=== PATIENT | female | born 1935 | race American Indian/Alaskan Native ===

== ENCOUNTER 2016-08-12 08:25 | Inpatient (IN) | payer OTHER ==
--- NOTE | 2016-08-12 09:05 | PDOC ---
History of Present Illness - General Chief Complaint: Pain Stated Complaint: WEAKNESS Time Seen by Provider: 08/12/16 08:30 History Source: Patient Exam Limitations: No Limitations - History of Present Illness Initial Comments: 08/12/16 09:05 80-year-old female presents to the ED with complaints of right shoulder pain, intermittent pelvic pain, intermittent femur pain for the past few weeks. Patient states is under the care of Dr. Sampson for breast cancer with bone mets and has a follow-up appointment this week with him secondary to the above. Patient states had scans and x-rays done on July 30 but did not get her results as of yet. patient denies fever, chills, swelling, redness, rash, discomfort with movement, or difficulty breathing. Pt does state generalized weakness greater in bilateral legs. Patient states pain is worsened with ambulation or when she applies pressure to the affected areas. Timing/Duration: intermittent Severity: moderate Associated Symptoms: reports: denies symptoms, weakness. denies: cough, fever/ chills Past History - Past Medical History Allergies/Adverse Reactions: Allergies Allergy/AdvReac Type Severity Reaction Status Date / Time No Known Allergies Allergy Verified 08/12/16 08:35 Home Medications: Ambulatory Orders Glimepiride 1 mg PO BID 08/20/15 Cholecalciferol (Vitamin D3) [Vitamin D3 -] 500 unit PO DAILY 08/12/16 Cyanocobalamin (Vitamin B-12) [Vitamin B12] 2,500 mcg PO DAILY 08/12/16 Iron 65 mg PO DAILY 08/12/16 Cancer: Yes (?BONE) Cardiac Disorders: Yes (heart murmur) Diabetes: Yes - Immunization History Immunization Up to Date: Yes - Psycho/Social/Smoking Cessation Hx Anxiety: No Suicidal Ideation: No Smoking History: Former smoker Have you smoked in the past 12 months: No If you are a former smoker, when did you quit?: 1979 Information on smoking cessation initiated: No Hx Alcohol Use: No Drug/Substance Use Hx: No Substance Use Type: None Patient Lives Alone: No Lives with/in: son Review of Systems - Review of Systems Able to Perform ROS?: Yes Constitutional: Yes: Weakness HEENTM: No: Symptoms Reported Respiratory: No: Symptoms reported Cardiac (ROS): No: Symptoms Reported ABD/GI: No: Symptoms Reported : No: Symptoms Reported Musculoskeletal: Yes: Joint Pain (right shoulder, left pelvis, ). No: Back Pain , Joint Swelling, Muscle Pain, Muscle Weakness, Neck Pain, Joint Stiffness Integumentary: No: Symptoms Reported Neurological: Yes: Weakness Endocrine: No: Symptoms Reported Hematologic/Lymphatic: Yes: See HPI *Physical Exam - Vital Signs Last Vital Signs Temp Pulse Resp BP Pulse Ox 97.6 F 90 18 151/99 96 08/12/16 08:38 08/12/16 08:38 08/12/16 08:38 08/12/16 08:38 08/12/16 08:38 - Physical Exam General Appearance: Yes: Nourished, Appropriately Dressed. No: Apparent Distress HEENT: negative: Pale Conjunctivae Neck: positive: Supple. negative: Tender, Decreased range of motion Respiratory/Chest: positive: Lungs Clear, Normal Breath Sounds. negative: Chest Tender, Respiratory Distress, Accessory Muscle Use Cardiovascular: positive: Regular Rhythm, Regular Rate. negative: Murmur Gastrointestinal/Abdominal: positive: Soft. negative: Tenderness Extremity: positive: Normal Capillary Refill, Normal Inspection, Normal Range of Motion. negative: Tender, Pedal Edema, Swelling Integumentary: positive: Normal Color, Warm, Moist Neurologic: positive: Normal Mood/Affect, Motor Strength 5/5 (moving all extremeties in bed) Medical Decision Making - Medical Decision Making 08/12/16 09:43 80-year-old female with history of breast cancer with bone mets under the care of Dr. Gonzalez. Patient states pain to her right shoulder and legs have been intermittent for the past 2 weeks and had imaging done but not reviewed with Dr. Sampson as of yet since appointment is next week and he was away on vacation. I reviewed the PET scan which showed and extensive bone cancer involving the right shoulder, ribs, spine, pelvis, bilateral femurs. Patient ordered for morphine subcutaneous and call placed to Dr. Sampson 08/12/16 12:47 Pt states morphine did alleviate her discomfort but now complaining of right shoulder pain. Case discussed with Dr. Sampson and states patient with benefit from admission including pain control, hormone therapy, and social evaluation. Case discussed with patient and states does want to stay and has services for her handicapped son at home. Patient ordered for Percocet,admission orders, and will admit to the hospitalist since Dr. Gomez does not admit here. 08/12/16 12:58 Discussed with hospitalist and accepted to service. Consultation placed for Dr. Sampson *DC/Admit/Observation/Transfer Diagnosis at time of Disposition: Weakness, Metastatic bone cancer, Intractable pain - Discharge Dispostion Admit: Yes - Referrals Referrals: Howard Gomez MD [Primary Care Provider] -
[2016-08-12] MEDS ORDERED: morphine CARPU-JECT 2 MG/1 ML DISP.SYRIN SQ ONE (09:31)
[2016-08-12] MEDS ORDERED: morphine CARPU-JECT 4 MG/1 ML DISP.SYRIN ONE (10:20)
[2016-08-12] MEDS ORDERED: OXYCODONE/APAP 5/325MG COMBO TABLET PO ONE (12:47)
[2016-08-12] MEDS ORDERED: OXYCODONE/APAP 5/325MG COMBO TABLET ONE (13:46)
[2016-08-12 13:51] LABS: BASOPHIL 0.9 % (0-2.0); EOSINOPHIL 0.9 % (0-4.5); MCH 26.2 pg (25.7-33.7); MCHC 32.1 g/dl (32.0-36.0); MEAN CELL VOLUME 81.5 fl (80-96); MEAN PLT VOLUME 8.4 fl (7.5-11.1); NEUTROPHILS 77.9 % (42.8-82.8); PLATELET COUNT 366 K/MM3 (134-434); RDW 14.4 % (11.6-15.6)
[2016-08-12 14:15] LABS: ALBUMIN 2.9 g/dl (3.4-5.0); ALK PHOS 296 U/L (45-117); ANION GAP 8 (8-16); BILIRUBIN,TOTAL 0.4 mg/dL (0.2-1.0); CALCIUM 11.3 mg/dL (8.5-10.1); CO2 34 mmol/L (21-32); CREATININE 0.7 mg/dL (0.55-1.02); GLUCOSE,RANDOM 124 mg/dL (74-106); SGOT/AST 51 U/L (15-37); SGPT/ALT 17 U/L (12-78)
--- NOTE | 2016-08-12 14:56 | HP ---
[id number] woman who comes to the ER complaining of pain all over her body with worsening weakness. She has a history of breast cancer with bone metastases. She was being treated with an oral agent which was stopped 3-4 weeks ago because of increasing pain. On 07/30, she had x-rays of both shoulders showing an osteolytic lesion in the proximal right humerus, and a bone scan showing multiple bone metastases including skull, spine, ribs, right shoulder, pelvis, femurs. The pain has continued to worsen. She has taken Alleve without relief. During this time, she has also become more weak and has started using a walker. For the last 2 days, she has been unable to stand or use her walker because of severe pain in her legs. She has also noted urinary urgency and incontinence. She denies fever, chills, shortness of breath, weight loss, nausea, vomiting, diarrhea, melena, rectal bleeding, dysuria, hematuria. PAST MEDICAL HISTORY Type 2 diabetes mellitus Metastatic breast cancer Osteoarthritis PAST SURGICAL HISTORY Tonsillectomy IM gamma nail of right femur Allergies No Known Allergies Allergy (Verified 08/12/16 08:35) HOME MEDICATIONS 3 Medication Instructions Recorded Glimepiride 1 mg PO BID 08/20/15 Cholecalciferol (Vitamin D3) 500 unit PO DAILY 08/12/16 [Vitamin D3 -] Cyanocobalamin (Vitamin B-12) 2,500 mcg PO DAILY 08/12/16 [Vitamin B12] Iron 65 mg PO DAILY 08/12/16 Social History: Smoking: Never smoked Alcohol: None Drugs: None Recent Travel: No Family History: Non-contributory REVIEW OF SYSTEMS CONSTITUTIONAL: Present: generalized weakness. Absent: fever, chills, diaphoresis, malaise, loss of appetite, weight change HEENT: Absent: rhinorrhea, nasal congestion, throat pain, throat swelling, difficulty swallowing, mouth swelling, ear pain, eye pain, visual changes CARDIOVASCULAR: Absent: chest pain, syncope, palpitations, lightheadedness, peripheral edema RESPIRATORY: Absent: cough, shortness of breath, dyspnea with exertion, orthopnea, wheezing, stridor, hemoptysis GASTROINTESTINAL: Absent: abdominal pain, abdominal distension, nausea, vomiting , diarrhea, constipation, melena, hematochezia GENITOURINARY: Present: urinary frequency, urinary incontinence. Absent: dysuria, hesitancy, hematuria, flank pain MUSCULOSKELETAL: Present: diffuse bone pain, back pain SKIN: Absent: rash, itching, pallor HEMATOLOGIC/IMMUNOLOGIC: Absent: easy bleeding, easy bruising, lymphadenopathy, frequent infections ENDOCRINE: Absent: unexplained weight gain, unexplained weight loss, heat intolerance, cold intolerance NEUROLOGIC: Present: unsteady gait, bladder incontinence. Absent: headache, focal weakness, paresthesias, dizziness, seizure, mental status changes, bowel incontinence PSYCHIATRIC: Absent: anxiety, depression, suicidal or homicidal ideation, hallucinations. PHYSICAL EXAMINATION Vital Signs Period Temp Pulse Resp BP Sys/Cash Pulse Ox Last 24 Hr 97.6 F 90 18 151/99 96 GENERAL: Awake, alert, and fully oriented, in no acute distress. HEAD: Normal with no signs of trauma. EYES: Pupils equal, round and reactive to light, extraocular movements intact, sclerae anicteric, conjunctivae clear. EARS, NOSE, THROAT: Ears normal, nares patent, oropharynx clear without exudates. Mucous membranes dry. NECK: Normal range of motion, supple without lymphadenopathy, JVD, or masses. LUNGS: Breath sounds equal, clear to auscultation bilaterally. No wheezes, and no crackles. No accessory muscle use. HEART: Normal S1 and S2, irregular, (+) 2/6 systolic murmur. ABDOMEN: Soft, nontender, not distended, normoactive bowel sounds, no guarding, no rebound, no masses. No hepatomegaly or splenomegaly. MUSCULOSKELETAL: Normal range of motion at all joints. No bony deformities or tenderness. No CVA tenderness. UPPER EXTREMITIES: 2+ pulses, warm, well-perfused. No cyanosis. No clubbing. Cap refill <2 seconds. No peripheral edema. LOWER EXTREMITIES: 2+ pulses, warm, well-perfused. No calf tenderness. No peripheral edema. NEUROLOGICAL: Cranial nerves II-XII intact. Normal speech. Gait not observed. PSYCHIATRIC: Cooperative. Good eye contact. Appropriate mood and affect. SKIN: Warm, dry, poor turgor, no rashes or lesions noted. Laboratory Tests 08/12/16 08/12/16 12:53 13:30 WBC 13.0 H D RBC 4.41 D Hgb 11.5 D Hct 36.0 D MCV 81.5 MCHC 32.1 RDW 14.4 D Plt Count 366 D MPV 8.4 D Neutrophils % 77.9 Lymphocytes % 11.3 D Monocytes % 9.0 Eosinophils % 0.9 D Basophils % 0.9 Sodium 151 H Potassium 3.6 Chloride 109 H Carbon Dioxide 34 H D Anion Gap 8 BUN 29 H D Creatinine 0.7 Creat Clearance w eGFR > 60 Random Glucose 124 H Calcium 11.3 H D Total Bilirubin 0.4 D AST 51 H D ALT 17 Alkaline Phosphatase 296 H D Total Protein 7.0 D Albumin 2.9 L EKG: Sinus rhythm, rate 73, LAD ASSESSMENT/PLAN: This is a 80-year-old woman with a history of metastatic breast cancer, anemia, type 2 DM who presented to the ER today because of diffuse pain and worsening weakness. She recently had bone scan which showed worsening metastatic bone disease. Today, she was found to have WBC 13.0, sodium 151, BUN 29, creatinine 0.7, calcium 11.3, albumin 2.9. She is being admitted now for treatment of an emergent condition. 1. Hypernatremia secondary to dehydration - IV normal saline - Monitor electrolytes, BUN, creatinine 2. Hypercalcemia secondary to dehydration and bone metastases - IV fluid - Monitor calcium 3. Leukocytosis - Likely secondary to hemoconcentration from dehydration - Check urinalysis as patient reports urinary frequency and incontinence - IV fluid - Monitor WBC 4. Anemia secondary to chronic illness - Hemoglobin 11.5 likely secondary to hemoconcentration - Monitor hemoglobin with hydration - Continue ferrous sulfate, vitamin B12 5. Metastatic breast cancer with diffuse pain - Start Duragesic patch and oxycodone as needed - Morphine as needed for severe pain - Oncology consult 6. Type 2 diabetes mellitus - Continue Amaryl - Fingersticks with Novolog sliding scale Visit type - Emergency Visit Emergency Visit: Yes ED Registration Date: 08/12/16 Care time: The patient presented to the Emergency Department on the above date and was hospitalized for further evaluation of their emergent condition. - New Patient This patient is new to me today: Yes Date on this admission: 08/12/16 - Critical Care Critical Care patient: No
[2016-08-12] MEDS ORDERED: ONDANSETRON 4 MG/2 ML VIAL IVPB PRN (14:57)
[2016-08-12] MEDS ORDERED: morphine CARPU-JECT 2 MG/1 ML DISP.SYRIN IVPUSH PRN (14:57)
[2016-08-12] MEDS ORDERED: SODIUM CHLORIDE 1,000 ML IV SCH (15:00)
[2016-08-12] MEDS: fentaNYL 12mcg/hr PATCH.TD72 TD SCH ×3 (15:12→22:12)
[2016-08-12 15:43] LABS: URINE APPEARANCE SLCLOUDY; URINE BILIRUBIN NEGATIVE (NEGATIVE); URINE BLOOD NEGATIVE (NEGATIVE); URINE COLOR LTYELLOW; URINE GLUCOSE (UA) NEGATIVE (NEGATIVE); URINE KETONE NEGATIVE (NEGATIVE); URINE NITRITE NEGATIVE (NEGATIVE); URINE PROTEIN NEGATIVE (NEGATIVE); URINE UROBILINOGEN NEGATIVE E.U./dl (0.2-1.0)
[2016-08-12 15:46] LABS: URINE LEUK ESTERASE 3+ (NEGATIVE)
[2016-08-12 15:47] LABS: URINE BACTERIA RARE /hpf (NONE SEEN); URINE RBC 1 /hpf (0-3); URINE WBC 23 /hpf (3-5); YEAST MODERATE
[2016-08-12] MEDS ORDERED: CEFTRIAXONE 1 GM in DEXTROSE 5%-WATER - 50 ML IVPB SCH (16:00)
--- NOTE | 2016-08-12 16:40 | EKG ---
Test Reason : Blood Pressure : / mmHG Vent. Rate : 073 BPM Atrial Rate : 073 BPM P-R Int : 150 ms QRS Dur : 094 ms QT Int : 372 ms P-R-T Axes : 022 -30 023 degrees QTc Int : 409 ms NORMAL SINUS RHYTHM POSSIBLE LEFT ATRIAL ENLARGEMENT LEFT AXIS DEVIATION ABNORMAL ECG WHEN COMPARED WITH ECG OF 12-AUG-2016 08:46, NO SIGNIFICANT CHANGE WAS FOUND Confirmed by AYSE ESCOBAR, MARIBELL ([id number]) on 08/12/2016 4:40:15 PM Referred By: Confirmed By:MARIBELL TAVERA MD
[2016-08-12] MEDS ORDERED: INSULIN (NOVOLOG) ASPART 100 UNITS/ML 10ML VIAL ONE (17:31)
[2016-08-12] MEDS: INSULIN SLIDING SCALE (NOVOLOG) 1 VIAL SQ SCH ×2 (17:33→22:19)
[2016-08-12] MEDS: GLIMEPIRIDE 1 MG TABLET (FP) PO SCH (17:37)
[2016-08-12] MEDS: cefTRIAXone 1 GM/50 ML BAG (PRE-DOCKED) IVPB SCH (19:57)
[2016-08-12] MEDS: HEPARIN NA (PORCINE) 5,000 UNITS/ML 1ML VIAL SQ SCH (19:57)
[2016-08-12] MEDS ORDERED: morphine CARPU-JECT 2 MG/1 ML DISP.SYRIN ONE (20:16)
[2016-08-12] MEDS: SENNOSIDES 8.6MG TABLET (FP) PO SCH (22:13)
[2016-08-12] MEDS: DOCUSATE SODIUM 100 MG CAPSULE (FP) PO SCH (22:13)
[2016-08-12 22:27] LABS: CALCIUM 10.9 mg/dL (8.5-10.1); CREATININE 0.9 mg/dL (0.55-1.02)
[2016-08-12 23:04] VITALS: BMI 24.1
[2016-08-13] MEDS: ACETAMINOPHEN 325 MG TABLET (FP) PO PRN ×3 (00:41→16:36)
[2016-08-13] MEDS: oxyCODONE HCL 5 MG TABLET PO PRN ×3 (00:42→16:35)
[2016-08-13] MEDS: HEPARIN NA (PORCINE) 5,000 UNITS/ML 1ML VIAL SQ SCH ×3 (01:29→17:12)
[2016-08-13] MEDS: INSULIN SLIDING SCALE (NOVOLOG) 1 VIAL SQ SCH ×4 (06:04→21:17)
[2016-08-13] MEDS: GLIMEPIRIDE 1 MG TABLET (FP) PO SCH ×3 (07:00→16:27)
[2016-08-13 07:53] LABS: BASOPHIL 0.6 % (0-2.0); MCH 25.8 pg (25.7-33.7); MCHC 31.6 g/dl (32.0-36.0); MEAN CELL VOLUME 81.7 fl (80-96); MEAN PLT VOLUME 8.7 fl (7.5-11.1); NEUTROPHILS 74.4 % (42.8-82.8); PLATELET COUNT 341 K/MM3 (134-434); RDW 14.6 % (11.6-15.6); WHITE BLOOD COUNT 12.9 K/mm3 (4.0-10.0)
[2016-08-13 08:16] LABS: CALCIUM 10.9 mg/dL (8.5-10.1); CREATININE 0.7 mg/dL (0.55-1.02)
[2016-08-13] MEDS: DOCUSATE SODIUM 100 MG CAPSULE (FP) PO SCH ×2 (09:04→21:16)
[2016-08-13] MEDS: CHOLECALCIFEROL (VITAMIN D3) 400 UNIT TABLET (FP) PO SCH (09:05)
[2016-08-13] MEDS: FERROUS SO4 325 MG TABLET (FP) PO SCH (09:05)
[2016-08-13] MEDS: CYANOCOBALAMIN 1,000 MCG TABLET (FP) PO SCH (09:06)
[2016-08-13] MEDS: cefTRIAXone 1 GM/50 ML BAG (PRE-DOCKED) IVPB SCH (09:07)
[2016-08-13] MEDS ORDERED: PATIENT'S OWN MEDICATION (NON-FORMULARY) (Cyanocobalamin (Vitamin B-12) [Vitamin B12] 2,50 PO SCH (10:00)
[2016-08-13] MEDS ORDERED: INSULIN (NOVOLOG) ASPART 100 UNITS/ML 10ML VIAL ONE ×2 (11:41→21:14)
--- NOTE | 2016-08-13 13:44 | PN ---
Progress Note (short form) - Note Progress Note: Consult dictated. Metastatic breast ca with diffuse skeletal and spine mets. S/P pathologic fracture of right femur with pinning and radiation therapy Progression on arimidex. Was due to change to Faslodex and was unable to come to office . Developed diffuse bone pains , "stiffness", inability to ambulate. Presented with hypercalcemia, hypernatremia,anemiam hyperglycemia. Plan: Zometa- correcterd Ca++-11.9- effective for bone mets. RT consult for right humerus-called suggest--PT consult Will change to Faslodex as out patient CT of spine -back pain and positive bone scan
[2016-08-13 14:01] LABS: ALBUMIN 2.4 g/dl (3.4-5.0); ANION GAP 10 (8-16); BILIRUBIN,TOTAL 0.2 mg/dL (0.2-1.0); CALCIUM 10.8 mg/dL (8.5-10.1); CO2 32 mmol/L (21-32); CREATININE 0.7 mg/dL (0.55-1.02); GLUCOSE,RANDOM 120 mg/dL (74-106); SGOT/AST 52 U/L (15-37); SGPT/ALT 16 U/L (12-78); TOT PROT 6.2 g/dl (6.4-8.2)
[2016-08-13 14:02] LABS: ALK PHOS 261 U/L (45-117)
--- NOTE | 2016-08-13 14:32 | PN ---
Physical Exam: SUBJECTIVE: Patient seen and examined. She states she is feeling better than yesterday, she has RUE shoulder tenderness referring down her arm. OBJECTIVE: Vital Signs Period Temp Pulse Resp BP Sys/Cash Pulse Ox Last 24 Hr 97.3 F-98 F 72-91 16-18 121-146/60-68 95-99 PE Neuro: alert, awake, cn 2-12intact Pulm: expiratory wheezing +nc no sob Breast: R breast mass 2-3oclock, L breast w/ cutaneous changes, retracted CV: s1s 2 rrr systolic murmur Abd: LLQ firmness appreciated, non tender + bs Ext: R shoulder/RUE tenderness CBCD WBC 12.9 K/mm3 (4.0-10.0) H 08/13/16 06:30 RBC 4.04 M/mm3 (3.60-5.2) 08/13/16 06:30 Hgb 10.4 GM/dL (10.7-15.3) L 08/13/16 06:30 Hct 33.0 % (32.4-45.2) 08/13/16 06:30 MCV 81.7 fl (80-96) 08/13/16 06:30 MCHC 31.6 g/dl (32.0-36.0) L 08/13/16 06:30 RDW 14.6 % (11.6-15.6) 08/13/16 06:30 Plt Count 341 K/MM3 (134-434) 08/13/16 06:30 MPV 8.7 fl (7.5-11.1) 08/13/16 06:30 CMP Sodium 149 mmol/L (136-145) H 08/13/16 13:40 Potassium 3.9 mmol/L (3.5-5.1) 08/13/16 13:40 Chloride 107 mmol/L (98-107) 08/13/16 13:40 Carbon Dioxide 32 mmol/L (21-32) 08/13/16 13:40 Anion Gap 10 (8-16) 08/13/16 13:40 BUN 29 mg/dL (7-18) H 08/13/16 13:40 Creatinine 0.7 mg/dL (0.55-1.02) 08/13/16 13:40 Creat Clearance w eGFR > 60 (>60) 08/13/16 13:40 Calcium 10.8 mg/dL (8.5-10.1) H 08/13/16 13:40 Total Bilirubin 0.2 mg/dL (0.2-1.0) D 08/13/16 13:40 AST 52 U/L (15-37) H 08/13/16 13:40 ALT 16 U/L (12-78) 08/13/16 13:40 Alkaline Phosphatase 261 U/L (45-117) H 08/13/16 13:40 Total Protein 6.2 g/dl (6.4-8.2) L 08/13/16 13:40 Albumin 2.4 g/dl (3.4-5.0) L 08/13/16 13:40 Active Medications Generic Name Dose Route Start Last Admin Trade Name Freq PRN Reason Stop Dose Admin Acetaminophen 650 mg 08/12/16 14:57 08/13/16 11:02 Tylenol - PO 650 mg Q4H PRN Administration FEVER OR PAIN Ceftriaxone Sodium 1 gm 08/12/16 16:15 08/13/16 09:07 Rocephin 1gm Ivpb (Pre-Docked) IVPB 1 gm DAILY DONNY Administration Cholecalciferol 500 unit 08/13/16 10:00 08/13/16 09:05 Vitamin D3 - PO 500 unit DAILY DONNY Administration Cyanocobalamin 2,500 mcg 08/13/16 10:00 08/13/16 09:06 Vitamin B12 - PO 2,500 mcg DAILY DONNY Administration Docusate Sodium 100 mg 08/12/16 22:00 08/13/16 09:04 Colace - PO Not Given BID DONNY Fentanyl 1 patch 08/12/16 15:00 08/12/16 22:12 Duragesic 12mcg Patch - TD 08/19/16 15:00 1 patch Q72H DONNY Administration Ferrous Sulfate 325 mg 08/13/16 10:00 08/13/16 09:05 Feosol - PO 325 mg DAILY DONNY Administration Glimepiride 1 mg 08/12/16 16:30 08/13/16 10:00 Amaryl - PO 1 mg BID@0700,1630 DONNY Administration Heparin Sodium (Porcine) 5,000 unit 08/12/16 18:00 08/13/16 09:09 Heparin - SQ 5,000 unit Q8H-IV DONNY Administration Potassium Chloride/Dextrose/Sod Cl 1,000 mls @ 100 mls/hr 08/13/16 14:00 D5-1/2ns+20 Meq Kcl - IV ASDIR DONNY Zoledronic Acid 4 mg/ Sodium 105 mls @ 100 mls/hr 08/13/16 13:51 Chloride IVPB 08/13/16 14:53 ONCE ONE Insulin Aspart 1 vial 08/12/16 16:30 08/13/16 11:44 Novolog Vial Sliding Scale - SQ 4 unit ACHS DONNY Administration Protocol Miscellaneous 1 each 08/12/16 15:00 Duragesic Patch Waste MC PRN PRN PAIN Morphine Sulfate 2 mg 08/12/16 14:57 08/12/16 20:20 Morphine Injection - IVPUSH 2 mg Q4H PRN Administration SEVERE PAIN Ondansetron HCl 4 mg 08/12/16 14:57 Zofran Injection IVPB Q4H PRN NAUSEA Oxycodone HCl 10 mg 08/12/16 15:01 08/13/16 11:01 Roxicodone - PO 10 mg Q4H PRN Administration MODERATE PAIN Senna 2 tab 08/12/16 22:00 08/12/16 22:13 Senna - PO 2 tab HS DONNY Administration Assessment: 80 year old female female with a history of metastatic breast cancer , anemia, DM II, admitted with diffuse pain, worsening weakness, hypercalcemia. Plan: 1. Hypernatremia secondary to dehydration - Change fluids d5 1/2 ns with 20meq kcl - Monitor CMP 2. Hypercalcemia secondary to dehydration and bone metastases - Corrected ca 12.08 - Give x1 dose Zoleronic acid - Continue fluids 3. UTI - Positive UA + 3 LE, wbc 23 - Check urine cx - Continue Ceftriaxone (day 2) 4. Anemia secondary to chronic illness - Continue ferrous sulfate, vitamin B12 5. Metastatic breast cancer to bone, spine, r shoulder, b/l femur with diffuse pain - Appreciate oncology assistance - F/u CT spine, back - Radiation therapy called - Fentanyl patch and oxycodone PRN - Morphine as needed for severe pain, will go up on fent patch if requires additional morphine 6. Type 2 diabetes mellitus - Continue Amaryl - BGM, ISS, ACHS Visit type - Emergency Visit Emergency Visit: Yes ED Registration Date: 08/12/16 Care time: The patient presented to the Emergency Department on the above date and was hospitalized for further evaluation of their emergent condition. - New Patient This patient is new to me today: Yes Date on this admission: 08/13/16 - Critical Care Critical Care patient: No
--- NOTE | 2016-08-13 14:46 | CONS ---
DATE OF CONSULTATION: 08/13/2016 HISTORY: This is a 80-year-old female with metastatic breast carcinoma. She presented with bilateral breast carcinoma. She is ER positive, IA positive, and HER2/lillian negative. She has been treated previously with Arimidex therapy with progressive disease. She has had a pathologic fracture of her right femur status post pinning and status post irradiation therapy. Recently she has had progressive bony disease, and the plan was to switch her to Faslodex therapy. She was unable to present to the office for this medication, however. She developed progressive bone pains diffusely. She developed "stiffness" of her lower extremities with inability to weight bear. She has right upper extremity as well as right lower extremity pain greater than other areas. She has had back pain. She is not incontinent but, because of her pain and inability to ambulate, has difficulty getting to the bathroom to control her urination. She is aware, however, whenever she does have to urinate. The patient presented to [facility] with the aforementioned symptoms. She was also noted to have hypercalcemia with a calcium of 11.3 and subsequently 10.9. Albumin is 2.9. Therefore, her corrected calcium is closer to 11.9 or 12. She was hypernatremic and is receiving hypertonic saline. She is hyperglycemic and is getting insulin p.r.n. She has a normochromic, normocytic anemia. CURRENT MEDICATIONS: Have included Duragesic patch recently instituted 12 mcg, Zofran 4, ceftriaxone, heparin for DVT prophylaxis, Colace, Senna, Theosol, MS IV p.r.n., oxycodone 10 p.r.n., and Amaryl 1 b.i.d. ALLERGIES: There are no known allergies. REVIEW OF SYSTEMS: No headaches, diplopia, epistaxis. Some shortness of breath, difficulty breathing, diffuse musculoskeletal symptoms. No nausea, vomiting, or diarrhea. No dysuria, hematuria. No vaginal bleeding or discharge. PHYSICAL EXAMINATION: Vital Signs: BP 130/60, pulse 75 and regular, atrial fibrillation, temperature 97.5, respiratory 18. HEENT: MALI. EOM intact. Oropharynx unremarkable. Lungs: Scattered rhonchi. Bronchial breath sounds. Cardiac: Regular rhythm. Systolic murmur. Breasts: Right breast: A 2-cm mass in the 12 o'clock axis above the nipple. Left breast: Mass in the central portion of the breast with pagetoid changes of the nipple. Abdomen: Soft. No organomegaly or masses. Extremities: Weakness right lower extremity greater than left lower extremity. Trace lower extremity edema. LABORATORY: WBC 12.9, hematocrit 33, platelets 341 with 74 polys, 13 lymphocytes. Chemistry: Sodium 148, potassium 3.9, chloride 111, CO2 is 31, BUN 29, creatinine 0.7, calcium 10.9. As aforementioned, albumin is 2.9, correct calcium elevated at 11.9. IMPRESSION: Metastatic breast carcinoma progression on Arimidex therapy. PLAN: 1. Faslodex infusion. 2. Zometa therapy. 3. In view of spine pain, we will do CT of spine. 4. In view of right upper extremity pain, we will ask our radiation therapy for consultation. 5. In view of hypernatremia, we will change to D5 1/2 normal saline plus potassium. RENETTA LOPEZ M.D. [id number]
[2016-08-13] MEDS ORDERED: PT OWN MED DRAWER 7, Y5N ONE (16:19)
[2016-08-13] MEDS: D5-1/2NS+20 MEQ KCL - 1,000 ML IV SCH (16:26)
[2016-08-13] MEDS ORDERED: ZOLEDRONIC ACID 4 MG in SODIUM CHLORIDE 100 ML IVPB ONE (16:30)
--- NOTE | 2016-08-13 19:31 | PN ---
Progress Note (short form) - Note Progress Note: Radiation Oncology Pt seen, chart/films reviewed. Discussed w/Dr Sampson. Progressive metastatic breast cancer on aromatase inhibitor therapy s/p Rt femur pinning and postop RT in 10/2015. Recent bone scan shows diffuse skeletal mets. Complains of right upper extremity pain and upper right scapula/back pain, inability to ambulate secondary to weakness. CT spine reviewed. Multilevel vetebral mets, there is a C7 right posterior lesion with ?epidural extension as well as at L4. Await official CT report. May consider MRI spine if CT is equivocal for epidural/canal compromise. Cont medical mgt and pain mgt. Palliative RT will be considered outpatient if otherwise stable.
[2016-08-13] MEDS: SENNOSIDES 8.6MG TABLET (FP) PO SCH (21:16)
[2016-08-14] MEDS: HEPARIN NA (PORCINE) 5,000 UNITS/ML 1ML VIAL SQ SCH ×2 (02:44→10:57)
[2016-08-14] MEDS: oxyCODONE HCL 5 MG TABLET PO PRN ×3 (03:26→13:55)
[2016-08-14] MEDS: ACETAMINOPHEN 325 MG TABLET (FP) PO PRN ×3 (03:27→13:56)
[2016-08-14] MEDS: D5-1/2NS+20 MEQ KCL - 1,000 ML IV SCH (03:28)
[2016-08-14] MEDS ORDERED: INSULIN (NOVOLOG) ASPART 100 UNITS/ML 10ML VIAL ONE ×2 (06:21→11:44)
[2016-08-14] MEDS: INSULIN SLIDING SCALE (NOVOLOG) 1 VIAL SQ SCH ×4 (06:22→21:29)
[2016-08-14] MEDS: GLIMEPIRIDE 1 MG TABLET (FP) PO SCH (06:22)
[2016-08-14 09:22] LABS: BASOPHIL 0.7 % (0-2.0); EOSINOPHIL 4.2 % (0-4.5); MCH 26.1 pg (25.7-33.7); MCHC 31.9 g/dl (32.0-36.0); MEAN CELL VOLUME 81.9 fl (80-96); MEAN PLT VOLUME 8.6 fl (7.5-11.1); NEUTROPHILS 74.2 % (42.8-82.8); PLATELET COUNT 319 K/MM3 (134-434); RDW 14.4 % (11.6-15.6); WHITE BLOOD COUNT 10.9 K/mm3 (4.0-10.0)
[2016-08-14 09:48] LABS: ALBUMIN 2.4 g/dl (3.4-5.0); ANION GAP 6 (8-16); CALCIUM 10.6 mg/dL (8.5-10.1); CO2 34 mmol/L (21-32); CREATININE 0.7 mg/dL (0.55-1.02); GLUCOSE,RANDOM 94 mg/dL (74-106); MAGNESIUM 2.3 mg/dL (1.8-2.4); SGOT/AST 56 U/L (15-37); SGPT/ALT 16 U/L (12-78)
[2016-08-14 09:50] LABS: ALK PHOS 262 U/L (45-117); BILIRUBIN,TOTAL 0.3 mg/dL (0.2-1.0); TOT PROT 6.1 g/dl (6.4-8.2)
[2016-08-14] MEDS ORDERED: DEXTROSE 5%-WATER - 1,000 ML IV SCH (10:30)
[2016-08-14] MEDS ORDERED: PT OWN MED DRAWER 7, Y5N ONE (10:51)
[2016-08-14] MEDS: DOCUSATE SODIUM 100 MG CAPSULE (FP) PO SCH ×2 (10:54→21:29)
[2016-08-14] MEDS: CHOLECALCIFEROL (VITAMIN D3) 400 UNIT TABLET (FP) PO SCH (10:55)
[2016-08-14] MEDS: CYANOCOBALAMIN 1,000 MCG TABLET (FP) PO SCH (10:56)
[2016-08-14] MEDS: FERROUS SO4 325 MG TABLET (FP) PO SCH (10:57)
[2016-08-14] MEDS: cefTRIAXone 1 GM/50 ML BAG (PRE-DOCKED) IVPB SCH (10:57)
[2016-08-14] MEDS ORDERED: DEXAMETHASONE SOD PHOSPHATE 10 MG/1 ML VIAL IVPUSH ONE (11:15)
[2016-08-14] MEDS: ALBUTEROL SO4 2.5/IPRATROPIUM 0.5 INH SOL 3 ML VIAL.NEB. NEB SCH ×3 (11:20→23:45)
[2016-08-14] MEDS ORDERED: FENTANYL PATCH WASTE TD PRN (11:23)
--- NOTE | 2016-08-14 11:24 | PN ---
Physical Exam: SUBJECTIVE: Patient seen and examined. She has RUE pain. She says her wheezing is positional. She denies bowel incontinence OBJECTIVE: Vital Signs Period Temp Pulse Resp BP Sys/Cash Pulse Ox Last 24 Hr 97.5 F-98.2 F 72-79 17-20 122-155/73-77 99 PE Neuro: alert, awake, cn 2-12intact Pulm: CTAB, no wheezing, dyspnea on exertion in bed Breast: R breast mass 2-3oclock, L breast w/ cutaneous changes, retracted CV: s1 s2 rrr Abd: LLQ firmness appreciated, non tender + bs Ext: R shoulder/RUE tenderness CBCD WBC 10.9 K/mm3 (4.0-10.0) H 08/14/16 08:00 RBC 3.93 M/mm3 (3.60-5.2) 08/14/16 08:00 Hgb 10.2 GM/dL (10.7-15.3) L 08/14/16 08:00 Hct 32.2 % (32.4-45.2) L 08/14/16 08:00 MCV 81.9 fl (80-96) 08/14/16 08:00 MCHC 31.9 g/dl (32.0-36.0) L 08/14/16 08:00 RDW 14.4 % (11.6-15.6) 08/14/16 08:00 Plt Count 319 K/MM3 (134-434) 08/14/16 08:00 MPV 8.6 fl (7.5-11.1) 08/14/16 08:00 CMP Sodium 150 mmol/L (136-145) H 08/14/16 08:00 Potassium 3.8 mmol/L (3.5-5.1) 08/14/16 08:00 Chloride 110 mmol/L (98-107) H 08/14/16 08:00 Carbon Dioxide 34 mmol/L (21-32) H 08/14/16 08:00 Anion Gap 6 (8-16) L 08/14/16 08:00 BUN 21 mg/dL (7-18) H D 08/14/16 08:00 Creatinine 0.7 mg/dL (0.55-1.02) 08/14/16 08:00 Creat Clearance w eGFR > 60 (>60) 08/14/16 08:00 Calcium 10.6 mg/dL (8.5-10.1) H 08/14/16 08:00 Total Bilirubin 0.3 mg/dL (0.2-1.0) D 08/14/16 08:00 AST 56 U/L (15-37) H 08/14/16 08:00 ALT 16 U/L (12-78) 08/14/16 08:00 Alkaline Phosphatase 262 U/L (45-117) H 08/14/16 08:00 Total Protein 6.1 g/dl (6.4-8.2) L 08/14/16 08:00 Albumin 2.4 g/dl (3.4-5.0) L 08/14/16 08:00 Active Medications Generic Name Dose Route Start Last Admin Trade Name Freq PRN Reason Stop Dose Admin Acetaminophen 650 mg 08/12/16 14:57 08/14/16 08:52 Tylenol - PO 650 mg Q4H PRN Administration FEVER OR PAIN Ceftriaxone Sodium 1 gm 08/12/16 16:15 08/14/16 10:57 Rocephin 1gm Ivpb (Pre-Docked) IVPB 1 gm DAILY DONNY Administration Cholecalciferol 500 unit 08/13/16 10:00 08/14/16 10:55 Vitamin D3 - PO 500 unit DAILY DONNY Administration Cyanocobalamin 2,500 mcg 08/13/16 10:00 08/14/16 10:56 Vitamin B12 - PO 2,500 mcg DAILY DONNY Administration Dexamethasone Sodium Phosphate 4 mg 08/14/16 15:00 Decadron Injection - IVPB Q6H-IV DONNY Docusate Sodium 100 mg 08/12/16 22:00 08/14/16 10:54 Colace - PO 100 mg BID DONNY Administration Fentanyl 1 patch 08/12/16 15:00 08/12/16 22:12 Duragesic 12mcg Patch - TD 08/19/16 15:00 1 patch Q72H DONNY Administration Ferrous Sulfate 325 mg 08/13/16 10:00 08/14/16 10:57 Feosol - PO 325 mg DAILY DONNY Administration Glimepiride 1 mg 08/12/16 16:30 08/14/16 06:22 Amaryl - PO 1 mg BID@0700,1630 DONNY Administration Heparin Sodium (Porcine) 5,000 unit 08/12/16 18:00 08/14/16 10:57 Heparin - SQ 5,000 unit Q8H-IV DONNY Administration Dextrose 1,000 mls @ 75 mls/hr 08/14/16 10:30 D5w - IV ASDIR DONNY Insulin Aspart 1 vial 08/12/16 16:30 08/14/16 06:22 Novolog Vial Sliding Scale - SQ 2 unit ACHS DONNY Administration Protocol Miscellaneous 1 each 08/12/16 15:00 Duragesic Patch Waste MC PRN PRN PAIN Ondansetron HCl 4 mg 08/12/16 14:57 Zofran Injection IVPB Q4H PRN NAUSEA Oxycodone HCl 10 mg 08/12/16 15:01 08/14/16 08:51 Roxicodone - PO 10 mg Q4H PRN Administration MODERATE PAIN Polyethylene Glycol 17 gm 08/14/16 11:30 Miralax (For Daily Use) - PO DAILY DONNY Senna 2 tab 08/12/16 22:00 08/13/16 21:16 Senna - PO 2 tab HS DONNY Administration Assessment: 80 year old female female with a history of metastatic breast cancer , anemia, DM II, admitted with diffuse pain, worsening weakness, hypercalcemia. Plan: 1. Metastatic breast cancer to bone, spine, r shoulder, b/l femur with diffuse pain - Appreciate oncology assistance - CT shows slight compromise to spinal canal L4 - Will give 10mg decadron x1 now - Start Decadron 4mg q6 - Increase Fentanyl patch to 25mcg today - Radiation therapy to RUE per RT 2. Hypernatremia secondary to dehydration - Change fluids D5 @75cc/hr - Trend BMP 3. Hypercalcemia secondary to dehydration and bone metastases - Improve, corrected ca 11.8 - s/p x1 dose Zoleronic acid - Consider daily calcitonin - Maintain fluids 4. UTI - Leukocytosis improving - Check urine cx - Continue Ceftriaxone (day 3) 5. Anemia secondary to chronic illness - Continue ferrous sulfate, vitamin B12 6. Type 2 diabetes mellitus - Stop po antidibetics - Will start long acting, pt started on steriods - BGM, ISS, ACHS 7. Dyspena - Supplemental o2 PRN - Duonebs q6hr Visit type - Emergency Visit Emergency Visit: Yes ED Registration Date: 08/12/16 Care time: The patient presented to the Emergency Department on the above date and was hospitalized for further evaluation of their emergent condition. - New Patient This patient is new to me today: No - Critical Care Critical Care patient: No
[2016-08-14] MEDS ORDERED: fentaNYL 25mcg/hr PATCH.TD72 TD SCH (12:15)
[2016-08-14] MEDS: DEXAMETHASONE SOD PHOSPHATE 4 MG/1 ML VIAL IVPB SCH ×3 (12:16→21:29)
[2016-08-14] MEDS ORDERED: DEXAMETHASONE SOD PHOSPHATE 4 MG/1 ML VIAL IVPUSH ONE (12:18)
[2016-08-14] MEDS: POLYETHYLENE GLYCOL 3350 119 GM BTL PO SCH (12:19)
--- NOTE | 2016-08-14 14:04 | PN ---
Progress Note (short form) - Note Progress Note: Patient seen and examined . Pain persists. Fentany increased to 25 mcg/72h . Would give 24 hours to asses response. Corrected Ca++ remains about 12 mg. Would expect zometa effect in 24-36 hours. Would also expect benefit of steroids on hypercalcemia. Hypernatremia- would switch to 1/2 normal saline to get added benefit on hypercalcemia. Last Vital Signs Temp Pulse Resp BP Pulse Ox 98.2 F 79 18 155/77 97 08/14/16 08:00 08/14/16 08:00 08/14/16 08:00 08/14/16 08:00 08/14/16 09:00 HEENT: MALI, EOM Intact Oropharynx: No thrush, No mucositis Neck: Supple Nodes: Without adenopathy Breasts: right breast mass; Pagetoid nipple change and left breast mass Cor: RSR, No murmurs, No gallops Lungs: diminished breasth sounds Abd: Soft, Normal bowel sounds, No organomegaly Ext:No significant edema Skin: No rashes, Integument intact CBC, BMP 08/14/16 08:00 08/14/16 08:00 Abnormal Lab Results 08/13/16 08/14/16 08/14/16 13:40 08:00 08:00 WBC 10.9 H Hgb 10.2 L Hct 32.2 L MCHC 31.9 L Sodium 149 H 150 H Chloride 110 H Carbon Dioxide 34 H Anion Gap 6 L BUN 29 H 21 H D Random Glucose 120 H D Calcium 10.8 H 10.6 H AST 52 H 56 H Alkaline Phosphatase 261 H 262 H Total Protein 6.2 L 6.1 L Albumin 2.4 L 2.4 L Current Medications Generic Name Dose Route Start Last Admin Trade Name Freq PRN Reason Stop Dose Admin Acetaminophen 650 mg 08/12/16 14:57 08/14/16 08:52 Tylenol - PO 650 mg Q4H PRN Administration FEVER OR PAIN Albuterol/Ipratropium 1 amp 08/14/16 11:30 Duoneb - NEB Q6H DONNY Ceftriaxone Sodium 1 gm 08/12/16 16:15 08/14/16 10:57 Rocephin 1gm Ivpb (Pre-Docked) IVPB 1 gm DAILY DONNY Administration Cholecalciferol 500 unit 08/13/16 10:00 08/14/16 10:55 Vitamin D3 - PO 500 unit DAILY DONNY Administration Cyanocobalamin 2,500 mcg 08/13/16 10:00 08/14/16 10:56 Vitamin B12 - PO 2,500 mcg DAILY DONNY Administration Dexamethasone Sodium Phosphate 4 mg 08/14/16 15:00 Decadron Injection - IVPB Q6H-IV DONNY Docusate Sodium 100 mg 08/12/16 22:00 08/14/16 10:54 Colace - PO 100 mg BID DONNY Administration Enoxaparin Sodium 40 mg 08/15/16 10:00 Lovenox - SQ DAILY DONNY Fentanyl 1 patch 08/14/16 12:15 08/14/16 12:29 Duragesic 25mcg Patch - TD 08/21/16 12:14 1 patch Q72H DONNY Administration Ferrous Sulfate 325 mg 08/13/16 10:00 08/14/16 10:57 Feosol - PO 325 mg DAILY DONNY Administration Dextrose 1,000 mls @ 75 mls/hr 08/14/16 10:30 08/14/16 11:53 D5w - IV 75 mls/hr ASDIR [facility] Administration Insulin Aspart 1 vial 08/12/16 16:30 08/14/16 11:58 Novolog Vial Sliding Scale - SQ Not Given ACHS [facility] Protocol Insulin Detemir 5 units 08/14/16 22:00 Levemir Vial SQ HS [facility] Miscellaneous 1 each 08/12/16 15:00 Duragesic Patch Waste MC PRN PRN PAIN Miscellaneous 1 each 08/14/16 11:23 Duragesic Patch Waste TD 08/21/16 11:22 PRN PRN PAIN Ondansetron HCl 4 mg 08/12/16 14:57 Zofran Injection IVPB Q4H PRN NAUSEA Oxycodone HCl 10 mg 08/12/16 15:01 08/14/16 08:51 Roxicodone - PO 10 mg Q4H PRN Administration MODERATE PAIN Polyethylene Glycol 17 gm 08/14/16 11:30 08/14/16 12:19 Miralax (For Daily Use) - PO 17 grams DAILY DONNY Administration Senna 2 tab 08/12/16 22:00 08/13/16 21:16 Senna - PO 2 tab HS DONNY Administration Impression: Metastatic breast ca with extensive skeletal mets Spine CT with diffuse lytic mets, destruction of C-6 with retropulsion and L4 met with minimal extension into spine and neural impingement Hypercalcemia-- received zometa, begun on steroids, and receiving mild fluids- Hypernatremia- to give hypotonic fluid with 1/2 NS to get added hypocalcemic effect of Na+ Hyperglycemia- on steroids and insulin instituted Anemia-secondary to chronic disease Abnormal LFT's- to monitor Plan: RT to spine Steroids Monitor Ca++, Phos, Mg++,Na+ C-Xray
[2016-08-14] MEDS: SODIUM CHLORIDE 0.45%/POT 1,000 ML IV SCH (15:43)
[2016-08-14] MEDS: SENNOSIDES 8.6MG TABLET (FP) PO SCH (21:29)
[2016-08-14] MEDS ORDERED: INSULIN DETEMIR 100 UNITS/ML MDV SQ SCH (22:00)
--- NOTE | 2016-08-14 23:46 | CONS ---
DATE OF CONSULTATION: 08/13/2016 REFERRING PHYSICIAN: Sammy Sampson MD REASON FOR CONSULTATION: Metastatic pain. HISTORY OF PRESENT ILLNESS: The patient is a 80-year-old woman known to our service who was diagnosed with bilateral breast cancer in early 2015 when she was noted to have pulmonary, bone, and adrenal metastases. She presented with a pathologic right femur fracture, which was surgically stabilized and then she received postoperative radiation therapy to the right hip following physical therapy. She did well and resumed ambulation with only a cane. She continued treatment with Arimidex under the care of Dr. Sampson. Recently, she was noted to have progressive bone metastases on a bone scan. A change in her hormonal therapy was planned. She is now admitted for pain management and hypercalcemia. She reports pain in the right upper extremity when flexing as well as abducting the right shoulder. She also notes pain radiating across the upper back from the left scapula to the right scapula. She has no numbness and tingling and denies weakness in the upper extremities. She does have urge incontinence related to her inability to reach the bathroom in time. She states that she has had recent cramping pain and stiffness in the lower extremities but no shooting pains, numbness or tingling. She has constipation secondary to her analgesics. PAST MEDICAL HISTORY: Prior radiotherapy as noted, osteoarthritis, diabetes mellitus, pneumonia, pneumothorax status post chest tube, left foot drop, and tonsillectomy. ALLERGIES: No known drug allergies. CURRENT MEDICATIONS: Duragesic patch, Rocephin, Lovenox, albuterol/Atrovent nebulizer, Colace, Senokot, insulin , Betazole, ferrous sulfate, oxycodone p.r.n., vitamin B12, vitamin D3, OBSTETRIC/GYNECOLOGIC HISTORY: 1, para 1. Menarche at age 15. Menopause at age 47. No history of hormone replacement therapy or control pills. Hormonal therapy as noted. FAMILY HISTORY: Noncontributory. SOCIAL HISTORY: Live with son and daughter. Smoked over 25 years ago. No current alcohol use. Retired from [employer] of 6 years. REVIEW OF SYSTEMS: As noted above. PHYSICAL EXAMINATION: General: Well-appearing in no acute distress lying in the hospital bed. Vital Signs: Temperature 97.7, blood pressure 130/60, pulse 75, respiratory rate 18, SAO2, 99% on 2 L nasal cannula. HEENT: Normocephalic and atraumatic. Moist mucous membranes. Anicteric sclerae. Clear oral cavity. No supraclavicular adenopathy. Lungs: Clear. Breasts: Contracted left nipple-areolar complex with superficial skin changes from underlying mass. Right upper breast mass, which is not tender. Abdomen: Soft, nontender, nondistended. No paraspinal mass or tenderness. No scapular pain. Neurologic: Nonfocal. LABORATORY DATA: WBC 12.9, hemoglobin 10.4, platelet count 341,000. BUN 29, creatinine 0.7, calcium 10.8, alkaline phosphatase 261, albumin 2.4. RADIOLOGIC DATA: 1. CT cervical, thoracic, and lumbar spine pending. 2. Bilateral shoulder x-ray July 29, 2016: An osteolytic lesion measuring 1.2 cm in the lateral aspect of the right proximal humerus predominantly in the medullary cavity involving the adjacent cortical bone, not seen on prior x-ray in April 2016. There is cortical disruption in the left 5th rib with possible osteolytic lesions. 3. Left clavicle x-ray from [facility] on July 30, 2016 : Intact left clavicle without fracture or subluxation. 4. Bone scan July 30, 2016: Diffuse bone metastases significantly worsened since August 2015 involving the skull, entire spine, bilaterally ribs, right shoulder, pelvic bones, and both femora. IMPRESSION: A 80-year-old woman with progressive metastatic breast cancer on aromatase inhibitor therapy status post right femur pinning and postoperative radiation therapy completed in October 2015. Recent x-rays and bone scan show diffuse skeletal metastases involving the spine, shoulder, pelvis and right humerus. There is a lesion in the right humerus associated with pain, which is amenable to palliative radiation therapy. She also complains of upper right scapular and back pain and inability to ambulate secondary to weakness and lower extremity pain. I reviewed the CT of the spine. There are multilevel vertebral metastases diffusely with a C7 right posterior destruction and possible epidural extension as well as another epidural lesion at L4. PLAN: She is a candidate for a right humerus palliative radiation therapy. We' ll await official CT scan report for further evaluation of the spine. She may benefit from an MRI if the CT is equivocal for epidural/canal compromise. Would continue medical management and pain management. Palliative radiation therapy to the thoracic spine and right humerus will be arranged outpatient if she otherwise remains stable. Thank you for the courtesy of this consultation. PETE TRUJILLO M.D. RIANNA/[id number] MTDD
[2016-08-15] MEDS: DEXAMETHASONE SOD PHOSPHATE 4 MG/1 ML VIAL IVPB SCH ×4 (02:03→21:01)
[2016-08-15] MEDS: SODIUM CHLORIDE 0.45%/POT 1,000 ML IV SCH (02:03)
[2016-08-15] MEDS: INSULIN SLIDING SCALE (NOVOLOG) 1 VIAL SQ SCH ×4 (06:08→21:01)
[2016-08-15] MEDS: ALBUTEROL SO4 2.5/IPRATROPIUM 0.5 INH SOL 3 ML VIAL.NEB. NEB SCH ×4 (06:15→23:04)
[2016-08-15 08:30] LABS: BASOPHIL 0.2 % (0-2.0); MCH 26.1 pg (25.7-33.7); MCHC 32.2 g/dl (32.0-36.0); MEAN PLT VOLUME 8.7 fl (7.5-11.1); NEUTROPHILS 89.2 % (42.8-82.8); PLATELET COUNT 301 K/MM3 (134-434); RDW 14.3 % (11.6-15.6)
[2016-08-15 09:25] LABS: ALBUMIN 2.5 g/dl (3.4-5.0); ALK PHOS 276 U/L (45-117); ANION GAP 7 (8-16); BILIRUBIN,TOTAL 0.2 mg/dL (0.2-1.0); CALCIUM 9.3 mg/dL (8.5-10.1); CO2 32 mmol/L (21-32); CREATININE 0.7 mg/dL (0.55-1.02); GLUCOSE,RANDOM 200 mg/dL (74-106); PHOSPHOROUS 2.8 mg/dL (2.5-4.9); SGOT/AST 43 U/L (15-37); SGPT/ALT 23 U/L (12-78); TOT PROT 6.2 g/dl (6.4-8.2)
[2016-08-15] MEDS: CHOLECALCIFEROL (VITAMIN D3) 400 UNIT TABLET (FP) PO SCH (09:59)
[2016-08-15] MEDS: DOCUSATE SODIUM 100 MG CAPSULE (FP) PO SCH ×2 (10:00→21:01)
[2016-08-15] MEDS: FERROUS SO4 325 MG TABLET (FP) PO SCH (10:00)
[2016-08-15] MEDS: CYANOCOBALAMIN 1,000 MCG TABLET (FP) PO SCH (10:00)
[2016-08-15] MEDS: ENOXAPARIN NA (PORCINE) 40 MG/0.4 ML DISP.SYRIN SQ SCH (10:01)
[2016-08-15] MEDS: POLYETHYLENE GLYCOL 3350 119 GM BTL PO SCH (10:01)
[2016-08-15] MEDS: cefTRIAXone 1 GM/50 ML BAG (PRE-DOCKED) IVPB SCH (10:57)
[2016-08-15] MEDS ORDERED: INSULIN (NOVOLOG) ASPART 100 UNITS/ML 10ML VIAL ONE (11:29)
--- NOTE | 2016-08-15 12:47 | PN ---
Physical Exam: SUBJECTIVE: Patient seen and examined. She c/o of R shoulder pain referring down to elbow and behind scapula. She denies urinary/bowel incontinence, decreased lower extremity muscle tone, lower back pain. OBJECTIVE: Vital Signs Period Temp Pulse Resp BP Sys/Cash Pulse Ox Last 24 Hr 97.6 F-97.8 F 70-90 18-20 108-142/61-74 96 PE Neuro: alert, awake, cn 2-12intact HEENT: no oral thrush, missing teeth Pulm: basilar crackles, on NC no cough Breast: R breast mass 2-3oclock, L breast w/ cutaneous changes, retracted CV: s1 s2 rrr Abd: LLQ firmness appreciated, non tender + bs Ext: R shoulder/RUE tenderness Laboratory Results - last 24 hr 08/15/16 08/15/16 08/15/16 07:30 07:30 11:25 WBC 10.0 RBC 3.95 Hgb 10.3 L Hct 32.0 L MCV 81.0 MCHC 32.2 RDW 14.3 Plt Count 301 MPV 8.7 Neutrophils % 89.2 H D Lymphocytes % 6.0 L D Monocytes % 4.6 Eosinophils % 0.0 D Basophils % 0.2 Sodium 147 H Potassium 3.9 Chloride 108 H Carbon Dioxide 32 Anion Gap 7 L BUN 23 H Creatinine 0.7 Creat Clearance w eGFR > 60 POC Glucometer 238 Random Glucose 200 H D Calcium 9.3 Phosphorus 2.8 Total Bilirubin 0.2 D AST 43 H D ALT 23 D Alkaline Phosphatase 276 H Total Protein 6.2 L Albumin 2.5 L Active Medications Generic Name Dose Route Start Last Admin Trade Name [place] PRN Reason Stop Dose Admin Acetaminophen 650 mg 08/12/16 14:57 08/14/16 13:56 Tylenol - PO 650 mg Q4H PRN Administration FEVER OR PAIN Albuterol/Ipratropium 1 amp 08/14/16 11:30 08/15/16 06:15 Duoneb - NEB Not Given Q6H DONNY Ceftriaxone Sodium 1 gm 08/12/16 16:15 08/15/16 10:57 Rocephin 1gm Ivpb (Pre-Docked) IVPB 1 gm DAILY DONNY Administration Cholecalciferol 500 unit 08/13/16 10:00 08/15/16 09:59 Vitamin D3 - PO 500 unit DAILY DONNY Administration Cyanocobalamin 2,500 mcg 08/13/16 10:00 08/15/16 10:00 Vitamin B12 - PO 2,500 mcg DAILY DONNY Administration Dexamethasone Sodium Phosphate 4 mg 08/14/16 15:00 08/15/16 09:59 Decadron Injection - IVPB 4 mg Q6H-IV DONNY Administration Docusate Sodium 100 mg 08/12/16 22:00 08/15/16 10:00 Colace - PO 100 mg BID DONNY Administration Enoxaparin Sodium 40 mg 08/15/16 10:00 08/15/16 10:01 Lovenox - SQ 40 mg DAILY DONNY Administration Fentanyl 1 patch 08/14/16 12:15 08/14/16 12:29 Duragesic 25mcg Patch - TD 08/21/16 12:14 1 patch Q72H DONNY Administration Ferrous Sulfate 325 mg 08/13/16 10:00 08/15/16 10:00 Feosol - PO 325 mg DAILY DONNY Administration Potassium Chloride/Sodium Chloride 1,000 mls @ 100 mls/hr 08/14/16 14:15 02:03 1/2ns+20meq Kcl IV 100 mls/hr ASDIR DONNY Administration Insulin Aspart 1 vial 08/12/16 16:30 08/15/16 11:46 Novolog Vial Sliding Scale - SQ 4 unit ACHS DONNY Administration Protocol Insulin Detemir 7 units 08/15/16 22:00 Levemir Vial SQ HS DONNY Miscellaneous 1 each 08/12/16 15:00 Duragesic Patch Waste MC PRN PRN PAIN Miscellaneous 1 each 08/14/16 11:23 Duragesic Patch Waste TD 08/21/16 11:22 PRN PRN PAIN Ondansetron HCl 4 mg 08/12/16 14:57 Zofran Injection IVPB Q4H PRN NAUSEA Oxycodone HCl 10 mg 08/12/16 15:01 08/14/16 13:55 Roxicodone - PO 10 mg Q4H PRN Administration MODERATE PAIN Polyethylene Glycol 17 gm 08/14/16 11:30 08/15/16 10:01 Miralax (For Daily Use) - PO 17 grams DAILY DONNY Administration Senna 2 tab 08/12/16 22:00 08/14/16 21:29 Senna - PO 2 tab HS DONNY Administration Assessment: 80 year old female female with a history of metastatic breast cancer , anemia, DM II, admitted with diffuse pain, worsening weakness, hypercalcemia. Plan: 1. Metastatic breast cancer to bone, spine, r shoulder, b/l femur with diffuse pain - Now with slight spinal canal compromise to L4 with complete destruction at c6 - Continue Decadron 4mg q6 - Will monitor for signs of worsening cord compression, currently stable - RT to evaluate tomorrow - Fentanyl patch 25mcg q72 - D/w Dr. Sampson, much appreciated 2. Hypernatremia secondary to dehydration - Corrected is 148 - Maintain 1/2ns w/ 20meq @83cc/hr, would not switch to d5 - Monitor bmp 3. Hypercalcemia secondary to dehydration and bone metastases - Improved with zoledronic acid; corrected ca 10.5 - Monitor phos, ca, mg daily, replete as needed following zoledronic acid 4. UTI - Urine cx pending - Continue Ceftriaxone (day 4) 5. Anemia secondary to chronic illness - Continue ferrous sulfate, vitamin B12 6. Type 2 diabetes mellitus - Increase levemir 7units HS, while on steroids - BGM, ISS, ACHS 7. Dyspena - CXR shows b/l effusions, hilar fullness - Will decrease fluids - Duonebs prn Visit type - Emergency Visit Emergency Visit: Yes ED Registration Date: 08/12/16 Care time: The patient presented to the Emergency Department on the above date and was hospitalized for further evaluation of their emergent condition. - New Patient This patient is new to me today: No - Critical Care Critical Care patient: No
[2016-08-15] MEDS ORDERED: SODIUM CHLORIDE 0.45%/POT 1,000 ML IV SCH (13:07)
[2016-08-15] MEDS: PANTOPRAZOLE 40 MG TABLET (FP) PO SCH (15:33)
[2016-08-15] MEDS: SENNOSIDES 8.6MG TABLET (FP) PO SCH (21:01)
[2016-08-15] MEDS ORDERED: INSULIN DETEMIR 100 UNITS/ML MDV SQ SCH (22:00)
[2016-08-16] MEDS: DEXAMETHASONE SOD PHOSPHATE 4 MG/1 ML VIAL IVPB SCH ×3 (02:11→15:38)
[2016-08-16] MEDS: INSULIN SLIDING SCALE (NOVOLOG) 1 VIAL SQ SCH ×4 (06:15→21:28)
[2016-08-16] MEDS: ALBUTEROL SO4 2.5/IPRATROPIUM 0.5 INH SOL 3 ML VIAL.NEB. NEB SCH ×4 (06:30→22:50)
[2016-08-16 08:30] LABS: BASOPHIL 0.1 % (0-2.0); MCH 26.2 pg (25.7-33.7); MCHC 32.2 g/dl (32.0-36.0); MEAN CELL VOLUME 81.4 fl (80-96); MEAN PLT VOLUME 8.8 fl (7.5-11.1); NEUTROPHILS 87.6 % (42.8-82.8); PLATELET COUNT 307 K/MM3 (134-434); RDW 14.5 % (11.6-15.6); WHITE BLOOD COUNT 14.4 K/mm3 (4.0-10.0)
[2016-08-16 08:45] LABS: ALBUMIN 2.5 g/dl (3.4-5.0); ANION GAP 5 (8-16); BILIRUBIN,TOTAL 0.3 mg/dL (0.2-1.0); CALCIUM 8.6 mg/dL (8.5-10.1); CO2 31 mmol/L (21-32); CREATININE 0.6 mg/dL (0.55-1.02); GLUCOSE,RANDOM 120 mg/dL (74-106); MAGNESIUM 2.7 mg/dL (1.8-2.4); PHOSPHOROUS 2.5 mg/dL (2.5-4.9); SGOT/AST 37 U/L (15-37); SGPT/ALT 23 U/L (12-78); TOT PROT 6.3 g/dl (6.4-8.2)
[2016-08-16 08:46] LABS: ALK PHOS 257 U/L (45-117)
[2016-08-16] MEDS: ENOXAPARIN NA (PORCINE) 40 MG/0.4 ML DISP.SYRIN SQ SCH (10:09)
[2016-08-16] MEDS: FERROUS SO4 325 MG TABLET (FP) PO SCH (10:09)
[2016-08-16] MEDS: DOCUSATE SODIUM 100 MG CAPSULE (FP) PO SCH ×2 (10:09→21:27)
[2016-08-16] MEDS: PANTOPRAZOLE 40 MG TABLET (FP) PO SCH (10:09)
[2016-08-16] MEDS: CYANOCOBALAMIN 1,000 MCG TABLET (FP) PO SCH (10:09)
[2016-08-16] MEDS: cefTRIAXone 1 GM/50 ML BAG (PRE-DOCKED) IVPB SCH (10:10)
[2016-08-16] MEDS: CHOLECALCIFEROL (VITAMIN D3) 400 UNIT TABLET (FP) PO SCH (10:10)
[2016-08-16] MEDS: POLYETHYLENE GLYCOL 3350 119 GM BTL PO SCH ×2 (10:30→10:35)
[2016-08-16] MEDS ORDERED: INSULIN (NOVOLOG) ASPART 100 UNITS/ML 10ML VIAL ONE ×3 (11:47→21:25)
--- NOTE | 2016-08-16 14:15 | PN ---
Physical Exam: SUBJECTIVE: Patient seen and examined. She was laying in the bed in no acute distress still stating her arm hurts from the elbow and above. She reports some relief from the Fentanyl patch. States pain worsens with any ADLs. OBJECTIVE: Vital Signs Period Temp Pulse Resp BP Sys/Cash Pulse Ox Last 24 Hr 97.6 F-98.1 F 80-93 20-20 127-141/55-71 96-97 GENERAL: The patient is awake, alert, and fully oriented, has intermittent discomfort of right upper arm HEAD: Normal with no signs of trauma. EYES: PERRL, extraocular movements intact, sclera anicteric, conjunctiva clear. No ptosis. ENT: Ears normal, nares patent NECK: Trachea midline, full range of motion, supple. LUNGS: Breath sounds equal, clear to auscultation bilaterally, HEART: Regular rate and rhythm, S1, S2 without murmur, rub or gallop. ABDOMEN: Soft, nontender, nondistended, normoactive bowel sounds, no guarding, no rebound, no hepatosplenomegaly, no masses. EXTREMITIES: 2+ pulses, warm, well-perfused, no edema. NEUROLOGICAL: Normal speech, gait not observed. PSYCH: Normal mood, normal affect. SKIN: Warm, dry, normal turgor, no rashes or lesions noted Laboratory Results - last 24 hr 08/15/16 08/15/16 08/16/16 16:50 20:59 06:11 WBC RBC Hgb Hct MCV MCHC RDW Plt Count MPV Neutrophils % Lymphocytes % Monocytes % Eosinophils % Basophils % Sodium Potassium Chloride Carbon Dioxide Anion Gap BUN Creatinine Creat Clearance w eGFR POC Glucometer 290 294 131 Random Glucose Calcium Phosphorus Magnesium Total Bilirubin AST ALT Alkaline Phosphatase Total Protein Albumin 08/16/16 08/16/16 08/16/16 07:00 07:00 11:42 WBC 14.4 H D RBC 3.88 Hgb 10.2 L Hct 31.6 L MCV 81.4 MCHC 32.2 RDW 14.5 Plt Count 307 MPV 8.8 Neutrophils % 87.6 H Lymphocytes % 6.5 L Monocytes % 5.8 Eosinophils % 0.0 Basophils % 0.1 Sodium 146 H Potassium 4.5 Chloride 110 H Carbon Dioxide 31 Anion Gap 5 L BUN 24 H Creatinine 0.6 Creat Clearance w eGFR > 60 POC Glucometer 378 Random Glucose 120 H D Calcium 8.6 Phosphorus 2.5 Magnesium 2.7 H Total Bilirubin 0.3 D AST 37 ALT 23 Alkaline Phosphatase 257 H Total Protein 6.3 L Albumin 2.5 L Active Medications Generic Name Dose Route Start Last Admin Trade Name Mahadq PRN Reason Stop Dose Admin Acetaminophen 650 mg 08/12/16 14:57 08/14/16 13:56 Tylenol - PO 650 mg Q4H PRN Administration FEVER OR PAIN Albuterol/Ipratropium 1 amp 08/14/16 11:30 08/16/16 11:41 Duoneb - NEB 1 amp Q6H DONNY Administration Ceftriaxone Sodium 1 gm 08/12/16 16:15 08/16/16 10:10 Rocephin 1gm Ivpb (Pre-Docked) IVPB 1 gm DAILY DONNY Administration Cholecalciferol 500 unit 08/13/16 10:00 08/16/16 10:10 Vitamin D3 - PO 500 unit DAILY DONNY Administration Cyanocobalamin 2,500 mcg 08/13/16 10:00 08/16/16 10:09 Vitamin B12 - PO 2,500 mcg DAILY DONNY Administration Dexamethasone Sodium Phosphate 4 mg 08/14/16 15:00 08/16/16 09:12 Decadron Injection - IVPB 4 mg Q6H-IV DONNY Administration Docusate Sodium 100 mg 08/12/16 22:00 08/16/16 10:09 Colace - PO 100 mg BID DONNY Administration Enoxaparin Sodium 40 mg 08/15/16 10:00 08/16/16 10:09 Lovenox - SQ 40 mg DAILY DONNY Administration Fentanyl 1 patch 08/14/16 12:15 08/14/16 12:29 Duragesic 25mcg Patch - TD 08/21/16 12:14 1 patch Q72H DONNY Administration Ferrous Sulfate 325 mg 08/13/16 10:00 08/16/16 10:09 Feosol - PO 325 mg DAILY DONNY Administration Potassium Chloride/Sodium Chloride 1,000 mls @ 83 mls/hr 08/15/16 13:07 15:33 1/2ns+20meq Kcl IV 83 mls/hr ASDIR DONNY Administration Insulin Aspart 1 vial 08/12/16 16:30 08/16/16 11:50 Novolog Vial Sliding Scale - SQ 10 unit ACHS DONNY Administration Protocol Insulin Detemir 7 units 08/15/16 22:00 08/15/16 21:01 Levemir Vial SQ 7 units HS DONNY Administration Miscellaneous 1 each 08/12/16 15:00 Duragesic Patch Waste MC PRN PRN PAIN Miscellaneous 1 each 08/14/16 11:23 Duragesic Patch Waste TD 08/21/16 11:22 PRN PRN PAIN Ondansetron HCl 4 mg 08/12/16 14:57 Zofran Injection IVPB Q4H PRN NAUSEA Oxycodone HCl 10 mg 08/12/16 15:01 08/14/16 13:55 Roxicodone - PO 10 mg Q4H PRN Administration MODERATE PAIN Pantoprazole Sodium 40 mg 08/15/16 13:15 08/16/16 10:09 Protonix - PO 40 mg DAILY DONNY Administration Polyethylene Glycol 17 gm 08/14/16 11:30 08/16/16 10:35 Miralax (For Daily Use) - PO Not Given DAILY DONNY Senna 2 tab 08/12/16 22:00 08/15/16 21:01 Senna - PO 2 tab HS DONNY Administration ASSESSMENT/PLAN: Patient is a 80 year old female with a significant past medical history of breast cancer with mets to the spine, right shoulder and femur. She also has a history of anemia, diabetes mellitus, weakness and hypercalcemia. She presented to the ED on 08/12/2016 with complaints of weakness and intractable pain. Hematology/Oncology Metastatic breast cancer to spine, right shoulder, femur - chronic Assessment/Plan: Advanced cancer with worsening pain. Her pain is being managed with Fentanyl 37.5mcg currently (dosed increased from 25mcg) and Oxycodone 10mg q4. She is a candidate for radiation therapy but we will conduct a MRI, Ortho eval and Xrays of femurs before continuing with physical therapy and palliative RT She is currently also on Decadron 4mg q 8 Oncology following. Endocrine: Diabetes Mellitus - chronic Assessment/Plan: BGMS uncontrolled with current regimen most likely due to steroids. Increased Levemir to 10units and monitor. May need further increased of Levemir while on steroids : UTI - acute Assessment/Plan: Urine cultures negative to date, stopped Rocephin Pulmonary: Dyspnea - acute Assessment/Plan: Chest Xray 08/15/16 with left pleural fluid, large heart and unfolded aorta and fullness of dionna. Dyspnea on exertion. On 2 liters of nasal cannula Incentive Spirometer, if worsening dyspnea will consider Lasix F.E.N. Fluids: 1/2 NS 20MEQ, Tolerating PO, will consult nutrition as pt is at risk for worsening PO intake secondary to weakness Electrolytes: within normal limits, monitor with BMP, Hypercalcemia resolved Nutrition: Diabetic diet, RD requested for poor PO intake Prophylaxis: DVT: Lovenox 40mg daily GI: Miralax, Senna, Protonix 40mg daily Disposition: Requires inpatient hospitalization. Full code. Visit type - Emergency Visit Emergency Visit: Yes ED Registration Date: 08/12/16 Care time: The patient presented to the Emergency Department on the above date and was hospitalized for further evaluation of their emergent condition. - New Patient This patient is new to me today: Yes Date on this admission: 08/16/16 - Critical Care Critical Care patient: No - Discharge Referral Referred to [facility] Med P.C.: No
[2016-08-16] MEDS: oxyCODONE HCL 5 MG TABLET PO PRN ×2 (14:21→23:29)
--- NOTE | 2016-08-16 16:24 | PN ---
Progress Note (short form) - Note Progress Note: Patient seen and examined . pain well controlled no specific complaints Last Vital Signs Temp Pulse Resp BP Pulse Ox 98.0 F 93 H 20 132/55 97 08/16/16 13:57 08/16/16 13:57 08/16/16 09:18 08/16/16 13:57 08/16/16 11:41 CACHECTIC HEENT: MALI, EOM Intact Cor: RSR, No murmurs, No gallops Lungs: diminished breasth sounds Abd: Soft, Normal bowel sounds, No organomegaly Ext:No significant edema Abnormal Lab Results 08/16/16 08/16/16 07:00 07:00 WBC 14.4 H D Hgb 10.2 L Hct 31.6 L Neutrophils % 87.6 H Lymphocytes % 6.5 L Sodium 146 H Chloride 110 H Anion Gap 5 L BUN 24 H Random Glucose 120 H D Magnesium 2.7 H Alkaline Phosphatase 257 H Total Protein 6.3 L Albumin 2.5 L Current Medications Acetaminophen (Tylenol -) 650 mg PO Q4H PRN PRN Reason: FEVER OR PAIN Last Admin: 08/14/16 13:56 Dose: 650 mg Albuterol/Ipratropium (Duoneb -) 1 amp NEB Q6H [facility] Last Admin: 08/16/16 11:41 Dose: 1 amp Cholecalciferol (Vitamin D3 -) 500 unit PO DAILY [facility] Last Admin: 08/16/16 10:10 Dose: 500 unit Cyanocobalamin (Vitamin B12 -) 2,500 mcg PO DAILY [facility] Last Admin: 08/16/16 10:09 Dose: 2,500 mcg Dexamethasone Sodium Phosphate (Decadron Injection -) 4 mg IVPB Q6H-IV [facility] Last Admin: 08/16/16 15:38 Dose: 4 mg Docusate Sodium (Colace -) 100 mg PO BID [facility] Last Admin: 08/16/16 10:09 Dose: 100 mg Enoxaparin Sodium (Lovenox -) 40 mg SQ DAILY [facility] Last Admin: 08/16/16 10:09 Dose: 40 mg Fentanyl (Duragesic 25mcg Patch -) 1 patch TD Q72H [facility] Stop: 08/21/16 12:14 Last Admin: 08/14/16 12:29 Dose: 1 patch Ferrous Sulfate (Feosol -) 325 mg PO DAILY [facility] Last Admin: 08/16/16 10:09 Dose: 325 mg Potassium Chloride/Sodium Chloride (1/2ns+20meq Kcl) 1,000 mls @ 83 mls/hr IV ASDIR [facility] Last Admin: 08/15/16 15:33 Dose: 83 mls/hr Insulin Aspart (Novolog Vial Sliding Scale -) 1 vial SQ ACHS DONNY PRN Reason: Protocol Last Admin: 08/16/16 11:50 Dose: 10 unit Insulin Detemir (Levemir Vial) 10 units SQ HS DONNY Miscellaneous (Duragesic Patch Waste) 1 each MC PRN PRN PRN Reason: PAIN Miscellaneous (Duragesic Patch Waste) 1 each TD PRN PRN PRN Reason: PAIN Stop: 08/21/16 11:22 Ondansetron HCl (Zofran Injection) 4 mg IVPB Q4H PRN PRN Reason: NAUSEA Oxycodone HCl (Roxicodone -) 10 mg PO Q4H PRN PRN Reason: MODERATE PAIN Last Admin: 08/16/16 14:21 Dose: 10 mg Pantoprazole Sodium (Protonix -) 40 mg PO DAILY [facility] Last Admin: 08/16/16 10:09 Dose: 40 mg Polyethylene Glycol (Miralax (For Daily Use) -) 17 gm PO DAILY [facility] Last Admin: 08/16/16 10:35 Dose: Not Given Senna (Senna -) 2 tab PO HS [facility] Last Admin: 08/15/16 21:01 Dose: 2 tab Impression: Metastatic breast ca with extensive skeletal mets Spine CT with diffuse lytic mets, destruction of C-6 with retropulsion and L4 met with minimal extension into spine and neural impingement discussed with rad-onc and primary team to get MRI C/T?L spine hypercalcemia resolved fentanyl increased to 37.5 mcg decreased fluids On decadrn 4mg Q8h --changed to PO check Xrays femurs Ortho consult
[2016-08-16] MEDS ORDERED: FENTANYL PATCH WASTE TD PRN (16:31)
--- NOTE | 2016-08-16 16:35 | PN ---
Progress Note (short form) - Note Progress Note: Radiation Oncology Still c/o pain in left shoulder/arm, right scapula radiating to arm. Able to sit up but had upper back/extremity pain on standing. CT spine shows diffuse disease at virtually all levels, most extensive with epidural soft tissue at C6, C7, T4/5, T7, L4. Also left acetabulum and bilateral iliacs. Imaging reviewed with Dr. Mayo. MRI w contrast would help to further evaluate for canal compromise and r/o cord impingement. Decadron commenced this weekend. Cont pain mgt. Discussed with Dr. Brannon.
--- NOTE | 2016-08-16 17:06 | EKG ---
Test Reason : Blood Pressure : / mmHG Vent. Rate : 090 BPM Atrial Rate : 090 BPM P-R Int : 130 ms QRS Dur : 102 ms QT Int : 354 ms P-R-T Axes : 056 -39 043 degrees QTc Int : 433 ms NORMAL SINUS RHYTHM LEFT AXIS DEVIATION ABNORMAL ECG WHEN COMPARED WITH ECG OF 22-AUG-2015 11:34, NO SIGNIFICANT CHANGE WAS FOUND Confirmed by GENNY BURKETT MD ([id number]) on 08/16/2016 5:05:39 PM Referred By: Confirmed By:GENNY BURKETT MD
[2016-08-16] MEDS: SODIUM CHLORIDE 0.45%/POT 1,000 ML IV SCH (17:39)
[2016-08-16] MEDS: fentaNYL 25mcg/hr PATCH.TD72 TD SCH (18:40)
[2016-08-16] MEDS: fentaNYL 12mcg/hr PATCH.TD72 TD SCH (18:41)
[2016-08-16] MEDS: FENTANYL PATCH WASTE MC PRN (18:47)
[2016-08-16] MEDS: SENNOSIDES 8.6MG TABLET (FP) PO SCH (21:27)
[2016-08-16] MEDS: DEXAMETHASONE 4 MG TABLET (FP) PO SCH (21:27)
[2016-08-16] MEDS ORDERED: INSULIN DETEMIR 100 UNITS/ML MDV SQ SCH (22:00)
[2016-08-17] MEDS: INSULIN SLIDING SCALE (NOVOLOG) 1 VIAL SQ SCH ×5 (06:15→23:15)
[2016-08-17] MEDS: DEXAMETHASONE 4 MG TABLET (FP) PO SCH ×3 (06:20→23:00)
[2016-08-17] MEDS: ALBUTEROL SO4 2.5/IPRATROPIUM 0.5 INH SOL 3 ML VIAL.NEB. NEB SCH ×4 (06:58→23:29)
[2016-08-17 08:18] LABS: BASOPHIL 0.1 % (0-2.0); MEAN CELL VOLUME 81.4 fl (80-96); MEAN PLT VOLUME 8.7 fl (7.5-11.1); NEUTROPHILS 84.5 % (42.8-82.8); PLATELET COUNT 321 K/MM3 (134-434); RDW 14.6 % (11.6-15.6); WHITE BLOOD COUNT 15.1 K/mm3 (4.0-10.0)
[2016-08-17 08:52] LABS: ALBUMIN 2.7 g/dl (3.4-5.0); ANION GAP 8 (8-16); CALCIUM 8.5 mg/dL (8.5-10.1); CO2 32 mmol/L (21-32); CREATININE 0.5 mg/dL (0.55-1.02); GLUCOSE,RANDOM 54 mg/dL (74-106); MAGNESIUM 2.9 mg/dL (1.8-2.4); SGOT/AST 42 U/L (15-37); SGPT/ALT 26 U/L (12-78); TOT PROT 6.7 g/dl (6.4-8.2)
[2016-08-17 08:54] LABS: ALK PHOS 272 U/L (45-117); BILIRUBIN,TOTAL 0.3 mg/dL (0.2-1.0)
[2016-08-17] MEDS: oxyCODONE HCL 5 MG TABLET PO PRN (08:54)
[2016-08-17] MEDS: PANTOPRAZOLE 40 MG TABLET (FP) PO SCH (10:03)
[2016-08-17] MEDS: FERROUS SO4 325 MG TABLET (FP) PO SCH (10:03)
[2016-08-17] MEDS: ENOXAPARIN NA (PORCINE) 40 MG/0.4 ML DISP.SYRIN SQ SCH (10:03)
[2016-08-17] MEDS: DOCUSATE SODIUM 100 MG CAPSULE (FP) PO SCH ×2 (10:03→23:00)
[2016-08-17] MEDS: CHOLECALCIFEROL (VITAMIN D3) 400 UNIT TABLET (FP) PO SCH (10:04)
[2016-08-17] MEDS: CYANOCOBALAMIN 1,000 MCG TABLET (FP) PO SCH (10:04)
[2016-08-17] MEDS: POLYETHYLENE GLYCOL 3350 119 GM BTL PO SCH (10:10)
--- NOTE | 2016-08-17 11:53 | PN ---
Physical Exam: SUBJECTIVE: Patient seen and examined. She is in bed, resting stating her pain in better controlled with the increase in the Fentanyl patch. OBJECTIVE: GENERAL: The patient is awake, alert, and fully oriented, has intermittent discomfort of right upper arm but much improved since yesterday HEAD: Normal with no signs of trauma. EYES: PERRL, extraocular movements intact, sclera anicteric, conjunctiva clear. No ptosis. ENT: Ears normal, nares patent NECK: Trachea midline, full range of motion, supple. LUNGS: Breath sounds equal, clear/diminished to auscultation bilaterally, HEART: Regular rate and rhythm ABDOMEN: Soft, nontender, nondistended, normoactive bowel sounds, no guarding EXTREMITIES: 2+ pulses, warm, well-perfused, no edema. NEUROLOGICAL: Normal speech, gait not observed PSYCH: Normal mood, normal affect. SKIN: Warm, dry, normal turgor, no rashes or lesions noted Vital Signs Period Temp Pulse Resp BP Sys/Cash Pulse Ox Last 24 Hr 97.4 F-98.0 F 79-93 17-19 117-138/55-74 97 Laboratory Results - last 24 hr 08/16/16 08/16/16 08/16/16 11:42 16:32 21:21 WBC RBC Hgb Hct MCV MCHC RDW Plt Count MPV Neutrophils % Lymphocytes % Monocytes % Eosinophils % Basophils % Sodium Potassium Chloride Carbon Dioxide Anion Gap BUN Creatinine Creat Clearance w eGFR POC Glucometer 378 251 233 Random Glucose Calcium Magnesium Total Bilirubin AST ALT Alkaline Phosphatase Total Protein Albumin 08/17/16 08/17/16 08/17/16 06:11 06:30 06:30 WBC 15.1 H RBC 4.11 Hgb 10.7 Hct 33.5 MCV 81.4 MCHC 32.0 RDW 14.6 Plt Count 321 MPV 8.7 Neutrophils % 84.5 H Lymphocytes % 8.1 D Monocytes % 7.3 Eosinophils % 0.0 Basophils % 0.1 Sodium 150 H Potassium 4.5 Chloride 110 H Carbon Dioxide 32 Anion Gap 8 BUN 24 H Creatinine 0.5 L Creat Clearance w eGFR > 60 POC Glucometer 77 Random Glucose 54 L D Calcium 8.5 Magnesium 2.9 H Total Bilirubin 0.3 AST 42 H ALT 26 Alkaline Phosphatase 272 H Total Protein 6.7 Albumin 2.7 L 08/17/16 11:15 WBC RBC Hgb Hct MCV MCHC RDW Plt Count MPV Neutrophils % Lymphocytes % Monocytes % Eosinophils % Basophils % Sodium Potassium Chloride Carbon Dioxide Anion Gap BUN Creatinine Creat Clearance w eGFR POC Glucometer 104 Random Glucose Calcium Magnesium Total Bilirubin AST ALT Alkaline Phosphatase Total Protein Albumin Active Medications Generic Name Dose Route Start Last Admin Trade Name Freq PRN Reason Stop Dose Admin Acetaminophen 650 mg 08/12/16 14:57 08/14/16 13:56 Tylenol - PO 650 mg Q4H PRN Administration FEVER OR PAIN Albuterol/Ipratropium 1 amp 08/14/16 11:30 08/17/16 06:58 Duoneb - NEB 1 amp Q6H DONNY Administration Cholecalciferol 500 unit 08/13/16 10:00 08/17/16 10:04 Vitamin D3 - PO 500 unit DAILY DONNY Administration Cyanocobalamin 2,500 mcg 08/13/16 10:00 08/17/16 10:04 Vitamin B12 - PO 2,500 mcg DAILY DONNY Administration Dexamethasone 4 mg 08/16/16 22:00 08/17/16 06:20 Decadron - PO 4 mg TID DONNY Administration Docusate Sodium 100 mg 08/12/16 22:00 08/17/16 10:03 Colace - PO 100 mg BID DONNY Administration Enoxaparin Sodium 40 mg 08/15/16 10:00 08/17/16 10:03 Lovenox - SQ 40 mg DAILY DONNY Administration Fentanyl 1 patch 08/16/16 16:45 08/16/16 18:41 Duragesic 12mcg Patch - TD 08/23/16 16:31 1 patch Q72H DONNY Administration Fentanyl 1 patch 08/16/16 17:30 08/16/16 18:40 Duragesic 25mcg Patch - TD 1 patch Q72H DONNY Administration Ferrous Sulfate 325 mg 08/13/16 10:00 08/17/16 10:03 Feosol - PO 325 mg DAILY DONNY Administration Potassium Chloride/Sodium Chloride 1,000 mls @ 42 mls/hr 08/16/16 16:32 17:39 1/2ns+20meq Kcl IV 42 mls/hr ASDIR DONNY Administration Insulin Aspart 1 vial 08/12/16 16:30 08/17/16 11:22 Novolog Vial Sliding Scale - SQ Not Given ACHS [facility] Protocol Insulin Detemir 7 units 08/17/16 22:00 Levemir Vial SQ HS DONNY Miscellaneous 1 each 08/12/16 15:00 08/16/16 18:47 Duragesic Patch Waste MC 1 each PRN PRN Administration PAIN Miscellaneous 1 each 08/14/16 11:23 Duragesic Patch Waste TD 08/21/16 11:22 PRN PRN PAIN Miscellaneous 1 each 08/16/16 16:31 Duragesic Patch Waste TD PRN PRN PAIN Ondansetron HCl 4 mg 08/12/16 14:57 Zofran Injection IVPB Q4H PRN NAUSEA Oxycodone HCl 10 mg 08/12/16 15:01 08/17/16 08:54 Roxicodone - PO 10 mg Q4H PRN Administration MODERATE PAIN Pantoprazole Sodium 40 mg 08/15/16 13:15 08/17/16 10:03 Protonix - PO 40 mg DAILY DONNY Administration Polyethylene Glycol 17 gm 08/14/16 11:30 08/17/16 10:10 Miralax (For Daily Use) - PO 17 grams DAILY DONNY Administration Senna 2 tab 08/12/16 22:00 08/16/16 21:27 Senna - PO 2 tab HS DONNY Administration ASSESSMENT/PLAN: Patient is a 80 year old female with a significant past medical history of breast cancer with mets to the spine, right shoulder and femur. She also has a history of anemia, diabetes mellitus, weakness and hypercalcemia. She presented to the ED on 08/12/2016 with complaints of generalized weakness, shoulder pain, pelvic pain, femur pain for the past few weeks. Her oncologist is Dr. Sampson whom she sees for metastatic breast cancer. She also states she has generalized weakness on bilateral legs that worsens with ambulation. On admission she was found to have hypercalcemia, hypernatremia and hyperglycemia. Hematology/Oncology Breast Cancer with skeletal and spine mets. - chronic Assessment/Plan: Previously on Anastrazole. She was due for a followup with her Oncologist but unable to keep appointment secondary to inability to ambulate and worsening pain. She also has had a pathological fracture of the right femur s/p pinning and RT Her pain is being managed with Fentanyl 37.5mcg currently (dosed increased from 25mcg) and Oxycodone 10mg q4. Oncology following Muscular/Skeletal Inability to ambulate secondary to skeletal and Spine metastatic - chronic Assessment/Plan: Femur xray 08/16/2016: No acute fracture or dislocation seen, findings compatible with mets involving right femur, no def. lytic lesions is seen in left femur. Thoracic Spine CT 08/13/2016: Diffuse bony mets involving the entire spine and the vertebral bodies and posterior elements with involvement of multiple ribs MRI of cervical and thoracic spine pending On Decadron 4mg PO Q8 Ortho consulted Endocrine: Diabetes Mellitus - chronic Assessment/Plan: BGMs uncontrolled with current regimen most likely due to steroids. Levemir increased to 10 units but pt was hypoglycemic this morning. Will decrease Levemir and monitor : UTI - acute Assessment/Plan: Urine cultures negative to date, stopped Rocephin Pulmonary: Dyspnea - acute Assessment/Plan: Chest Xray 08/15/16 with left pleural fluid, large heart and unfolded aorta and fullness of dionna. Dyspnea on exertion. On 2-3 liters of nasal cannula Incentive Spirometer, if worsening dyspnea will consider Lasix F.E.N. Fluids: 1/2 NS 20MEQ, Tolerating PO, will consult RD as pt is at risk for worsening PO intake secondary to weakness, also risk for skin impairment Electrolytes: Hypercalcemia resolved (corrected Ca 9.9) Hypernatremia chronic - monitor on fluids Hyperglycemia resolved Nutrition: Diabetic diet, RD requested for poor PO intake Prophylaxis: DVT: Lovenox 40mg daily GI: Miralax, Senna, Colace, Protonix 40mg daily Disposition: Requires inpatient hospitalization. Full code. Visit type - Emergency Visit Emergency Visit: Yes ED Registration Date: 08/12/16 Care time: The patient presented to the Emergency Department on the above date and was hospitalized for further evaluation of their emergent condition. - New Patient This patient is new to me today: No - Critical Care Critical Care patient: No - Discharge Referral Referred to [facility] Med P.C.: No
--- NOTE | 2016-08-17 14:46 | CONSULT ---
Consult Consult Specialty:: Ortho Reason for Consultation:: right shoulder/humerus pain - Past Medical History CLINICAL REHABILITATION LIAISON: Yes: Other (left foot drop) Cardio/Vascular: Yes: Murmur Musculoskeletal: Yes: Osteoarthritis Endocrine: Yes: Diabetes Mellitus - Past Surgical History Past Surgical History: Yes: Tonsillectomy - Alcohol/Substance Use Hx Alcohol Use: No History of Substance Use: reports: None - Smoking History Smoking history: Former smoker Have you smoked in the past 12 months: No If you are a former smoker, when did you quit?: 1979 - Social History Usual Living Arrangement: Other (lives with son, grand-daughter) ADL: Independent Occupation: retired History of Recent Travel: No Home Medications - Allergies Allergies/Adverse Reactions: Allergies Allergy/AdvReac Type Severity Reaction Status Date / Time No Known Allergies Allergy Verified 08/12/16 08:35 - Home Medications Home Medications: Ambulatory Orders Glimepiride 1 mg PO BID 08/20/15 Cholecalciferol (Vitamin D3) [Vitamin D3 -] 500 unit PO DAILY 08/12/16 Cyanocobalamin (Vitamin B-12) [Vitamin B12] 2,500 mcg PO DAILY 08/12/16 Iron 65 mg PO DAILY 08/12/16 Family Disease History - Family Disease History Family Disease History: Respiratory: Father (COPD, emphysema), Other: Grandparent (natural) Physical Exam for Ortho Vital Signs: Vital Signs Temperature 97.9 F 08/17/16 13:53 Pulse Rate 87 08/17/16 13:53 Respiratory Rate 18 08/17/16 10:00 Blood Pressure 143/68 08/17/16 13:53 O2 Sat by Pulse Oximetry (%) 95 08/17/16 09:00 Labs: CBC, BMP 08/17/16 06:30 08/17/16 06:30 - Upper Extremity Shoulder: Yes: Right, Other (mild ttp over midshaft humerus, full ROM, nvi) - Lower Extremity Hip: Yes: Exam WNL, Left Leg: Yes: Exam WNL, Left Knee: Yes: Exam WNL, Left Imaging - Results X-ray: Report Reviewed, Image Reviewed Cat Scan: Report Reviewed, Image Reviewed Assessment/Plan 80-year-old female presented to the ED with complaints of right shoulder pain, intermittent pelvic pain, intermittent femur pain for the past few weeks. Patient states is under the care of Dr. Sampson for breast cancer with bone mets. She currently has minimal pain in the right shoulder/arm and denies pain in the left femur. a/p- multiple bone mets (right humerus, ? left femur, spine) RT for right humerus will observe if pain persists/worsens can prophylactically victor manuel humerus d/w Dr. Gonzalez
[2016-08-17] MEDS: SODIUM CHLORIDE 0.45%/POT 1,000 ML IV SCH (17:22)
--- NOTE | 2016-08-17 19:49 | PN ---
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 Cor: RSR, No murmurs, No gallops Lungs: decreased breath sounds Abd: Soft, Normal bowel sounds, No organomegaly Ext:No significant edema Skin: No rashes, Integument intact CBC, BMP 08/17/16 06:30 08/17/16 06:30 Current Medications Generic Name Dose Route Start Last Admin Trade Name Freq PRN Reason Stop Dose Admin Acetaminophen 650 mg 08/12/16 14:57 08/14/16 13:56 Tylenol - PO 650 mg Q4H PRN Administration FEVER OR PAIN Albuterol/Ipratropium 1 amp 08/14/16 11:30 08/17/16 17:08 Duoneb - NEB 1 amp Q6H DONNY Administration Cholecalciferol 500 unit 08/13/16 10:00 08/17/16 10:04 Vitamin D3 - PO 500 unit DAILY DONNY Administration Cyanocobalamin 2,500 mcg 08/13/16 10:00 08/17/16 10:04 Vitamin B12 - PO 2,500 mcg DAILY DONNY Administration Dexamethasone 4 mg 08/16/16 22:00 08/17/16 14:52 Decadron - PO 4 mg TID DONNY Administration Docusate Sodium 100 mg 08/12/16 22:00 08/17/16 10:03 Colace - PO 100 mg BID DONNY Administration Enoxaparin Sodium 40 mg 08/15/16 10:00 08/17/16 10:03 Lovenox - SQ 40 mg DAILY DONNY Administration Fentanyl 1 patch 08/16/16 16:45 08/16/16 18:41 Duragesic 12mcg Patch - TD 08/23/16 16:31 1 patch Q72H DONNY Administration Fentanyl 1 patch 08/16/16 17:30 08/16/16 18:40 Duragesic 25mcg Patch - TD 1 patch Q72H DONNY Administration Ferrous Sulfate 325 mg 08/13/16 10:00 08/17/16 10:03 Feosol - PO 325 mg DAILY DONNY Administration Potassium Chloride/Sodium Chloride 1,000 mls @ 42 mls/hr 08/16/16 16:32 17:22Impression 1/2ns+20meq Kcl IV 42 mls/hr ASDIR DONNY Administration Insulin Aspart 1 vial 08/12/16 16:30 08/17/16 16:52 Novolog Vial Sliding Scale - SQ Not Given ACHS [facility] Protocol Insulin Detemir 7 units 08/17/16 22:00 Levemir Vial SQ HS DONNY Miscellaneous 1 each 08/12/16 15:00 08/16/16 18:47 Duragesic Patch Waste MC 1 each PRN PRN Administration PAIN Miscellaneous 1 each 08/14/16 11:23 Duragesic Patch Waste TD 08/21/16 11:22 PRN PRN PAIN Miscellaneous 1 each 08/16/16 16:31 Duragesic Patch Waste TD PRN PRN PAIN Ondansetron HCl 4 mg 08/12/16 14:57 Zofran Injection IVPB Q4H PRN NAUSEA Oxycodone HCl 10 mg 08/12/16 15:01 08/17/16 08:54 Roxicodone - PO 10 mg Q4H PRN Administration MODERATE PAIN Pantoprazole Sodium 40 mg 08/15/16 13:15 08/17/16 10:03 Protonix - PO 40 mg DAILY DONNY Administration Polyethylene Glycol 17 gm 08/14/16 11:30 08/17/16 10:10 Miralax (For Daily Use) - PO 17 grams DAILY DONNY Administration Senna 2 tab 08/12/16 22:00 08/16/16 21:27 Senna - PO 2 tab HS DONNY Administration Impression : Metastatic breast c Bone/Spine Mets MRI-Oked by tech Hypercalcemia-improved Pain- improved Hypernatremia- d/c IV - consider Renal consult PT .
[2016-08-17] MEDS ORDERED: DEXTROSE 5%-WATER - 1,000 ML IV SCH (21:45)
[2016-08-17] MEDS: SENNOSIDES 8.6MG TABLET (FP) PO SCH (23:00)
[2016-08-17] MEDS: INSULIN DETEMIR 100 UNITS/ML MDV SQ SCH ×2 (23:11→23:14)
[2016-08-18] MEDS: INSULIN SLIDING SCALE (NOVOLOG) 1 VIAL SQ SCH ×4 (06:05→21:58)
[2016-08-18] MEDS: DEXAMETHASONE 4 MG TABLET (FP) PO SCH ×3 (06:05→21:52)
[2016-08-18] MEDS: ALBUTEROL SO4 2.5/IPRATROPIUM 0.5 INH SOL 3 ML VIAL.NEB. NEB SCH ×4 (07:05→23:36)
[2016-08-18 07:50] LABS: BASOPHIL 0.1 % (0-2.0); EOSINOPHIL 0.1 % (0-4.5); MCH 25.8 pg (25.7-33.7); MCHC 31.8 g/dl (32.0-36.0); MEAN CELL VOLUME 81.2 fl (80-96); MEAN PLT VOLUME 8.6 fl (7.5-11.1); NEUTROPHILS 84.6 % (42.8-82.8); PLATELET COUNT 296 K/MM3 (134-434); RDW 14.8 % (11.6-15.6); WHITE BLOOD COUNT 12.3 K/mm3 (4.0-10.0)
[2016-08-18 08:43] LABS: ALBUMIN 2.7 g/dl (3.4-5.0); ALK PHOS 286 U/L (45-117); ANION GAP 6 (8-16); BILIRUBIN,TOTAL 0.3 mg/dL (0.2-1.0); CALCIUM 8.2 mg/dL (8.5-10.1); CO2 30 mmol/L (21-32); CREATININE 0.6 mg/dL (0.55-1.02); GLUCOSE,RANDOM 213 mg/dL (74-106); MAGNESIUM 2.7 mg/dL (1.8-2.4); PHOSPHOROUS 2.6 mg/dL (2.5-4.9); SGOT/AST 39 U/L (15-37); SGPT/ALT 27 U/L (12-78); TOT PROT 6.5 g/dl (6.4-8.2)
--- NOTE | 2016-08-18 09:41 | PN ---
Progress Note (short form) - Note Progress Note: Ortho Pt seen and examined mild tenderness over right midhaft humerus, full ROM, nvi MRI of cervical and thoracic spine pending a/p RT to right humerus f/u MRIs will follow d/w Dr. Gonzalez
[2016-08-18] MEDS: PANTOPRAZOLE 40 MG TABLET (FP) PO SCH (09:43)
[2016-08-18] MEDS: ENOXAPARIN NA (PORCINE) 40 MG/0.4 ML DISP.SYRIN SQ SCH (09:43)
[2016-08-18] MEDS: DOCUSATE SODIUM 100 MG CAPSULE (FP) PO SCH ×2 (09:43→21:51)
[2016-08-18] MEDS: CYANOCOBALAMIN 1,000 MCG TABLET (FP) PO SCH (09:44)
[2016-08-18] MEDS: CHOLECALCIFEROL (VITAMIN D3) 400 UNIT TABLET (FP) PO SCH (09:44)
[2016-08-18] MEDS: FERROUS SO4 325 MG TABLET (FP) PO SCH (09:44)
[2016-08-18] MEDS: POLYETHYLENE GLYCOL 3350 119 GM BTL PO SCH (09:47)
--- NOTE | 2016-08-18 10:21 | PN ---
Progress Note (short form) - Note Progress Note: SUBJECTIVE: The patient was seen and examined at the bedside, she denies any pain. She states she feels as though her current pain management routine is working. Current Medications Generic Name Dose Route Start Last Admin Trade Name Freq PRN Reason Stop Dose Admin Acetaminophen 650 mg 08/12/16 14:57 08/14/16 13:56 Tylenol - PO 650 mg Q4H PRN Administration FEVER OR PAIN Albuterol/Ipratropium 1 amp 08/14/16 11:30 08/18/16 07:05 Duoneb - NEB 1 amp Q6H DONNY Administration Cholecalciferol 500 unit 08/13/16 10:00 08/18/16 09:44 Vitamin D3 - PO 500 unit DAILY DONNY Administration Cyanocobalamin 2,500 mcg 08/13/16 10:00 08/18/16 09:44 Vitamin B12 - PO 2,500 mcg DAILY DONNY Administration Dexamethasone 4 mg 08/16/16 22:00 08/18/16 06:05 Decadron - PO 4 mg TID DONNY Administration Docusate Sodium 100 mg 08/12/16 22:00 08/18/16 09:43 Colace - PO 100 mg BID DONNY Administration Enoxaparin Sodium 40 mg 08/15/16 10:00 08/18/16 09:43 Lovenox - SQ 40 mg DAILY DONNY Administration Fentanyl 1 patch 08/16/16 16:45 08/16/16 18:41 Duragesic 12mcg Patch - TD 08/23/16 16:31 1 patch Q72H DONNY Administration Fentanyl 1 patch 08/16/16 17:30 08/16/16 18:40 Duragesic 25mcg Patch - TD 1 patch Q72H DONNY Administration Ferrous Sulfate 325 mg 08/13/16 10:00 08/18/16 09:44 Feosol - PO 325 mg DAILY DONNY Administration Insulin Aspart 1 vial 08/12/16 16:30 08/18/16 06:05 Novolog Vial Sliding Scale - SQ 4 unit ACHS DONNY Administration Protocol Insulin Detemir 7 units 08/17/16 22:00 08/17/16 23:14 Levemir Vial SQ Not Given HS DONNY Miscellaneous 1 each 08/12/16 15:00 08/16/16 18:47 Duragesic Patch Waste MC 1 each PRN PRN Administration PAIN Miscellaneous 1 each 08/14/16 11:23 Duragesic Patch Waste TD 08/21/16 11:22 PRN PRN PAIN Miscellaneous 1 each 08/16/16 16:31 Duragesic Patch Waste TD PRN PRN PAIN Ondansetron HCl 4 mg 08/12/16 14:57 Zofran Injection IVPB Q4H PRN NAUSEA Oxycodone HCl 10 mg 08/12/16 15:01 08/17/16 08:54 Roxicodone - PO 10 mg Q4H PRN Administration MODERATE PAIN Pantoprazole Sodium 40 mg 08/15/16 13:15 08/18/16 09:43 Protonix - PO 40 mg DAILY DONNY Administration Polyethylene Glycol 17 gm 08/14/16 11:30 08/18/16 09:47 Miralax (For Daily Use) - PO 17 grams DAILY DONNY Administration Senna 2 tab 08/12/16 22:00 08/17/16 23:00 Senna - PO 2 tab HS DONNY Administration OBJECTIVE: Vital Signs Period Temp Pulse Resp BP Sys/Cash Pulse Ox Last 24 Hr 96.4 F-97.9 F 71-94 18-20 143-155/68-90 95-97 Physical Exam: General: NAD, A&Ox3 HEENT: Poor dentition Breast: Right breast mass, L breast with retraction and skin changes Lungs: CTA bilaterally Heart: RRR, S1S2, +murmur Abd: Soft, non-tender, non-distended. Normoactive bowel sounds Ext: Warm, well-perfused. Able to move all toes. Right shoulder decreased ROM, tenderness CBCD WBC 12.3 K/mm3 (4.0-10.0) H 08/18/16 06:45 RBC 4.04 M/mm3 (3.60-5.2) 08/18/16 06:45 Hgb 10.4 GM/dL (10.7-15.3) L 08/18/16 06:45 Hct 32.8 % (32.4-45.2) 08/18/16 06:45 MCV 81.2 fl (80-96) 08/18/16 06:45 MCHC 31.8 g/dl (32.0-36.0) L 08/18/16 06:45 RDW 14.8 % (11.6-15.6) 08/18/16 06:45 Plt Count 296 K/MM3 (134-434) 08/18/16 06:45 MPV 8.6 fl (7.5-11.1) 08/18/16 06:45 CMP Sodium 142 mmol/L (136-145) 08/18/16 06:45 Potassium 4.2 mmol/L (3.5-5.1) 08/18/16 06:45 Chloride 106 mmol/L (98-107) 08/18/16 06:45 Carbon Dioxide 30 mmol/L (21-32) 08/18/16 06:45 Anion Gap 6 (8-16) L 08/18/16 06:45 BUN 24 mg/dL (7-18) H 08/18/16 06:45 Creatinine 0.6 mg/dL (0.55-1.02) 08/18/16 06:45 Creat Clearance w eGFR > 60 (>60) 08/18/16 06:45 Random Glucose 213 mg/dL (74-106) H D 08/18/16 06:45 Calcium 8.2 mg/dL (8.5-10.1) L 08/18/16 06:45 Total Bilirubin 0.3 mg/dL (0.2-1.0) 08/18/16 06:45 AST 39 U/L (15-37) H 08/18/16 06:45 ALT 27 U/L (12-78) 08/18/16 06:45 Alkaline Phosphatase 286 U/L (45-117) H 08/18/16 06:45 Total Protein 6.5 g/dl (6.4-8.2) 08/18/16 06:45 Albumin 2.7 g/dl (3.4-5.0) L 08/18/16 06:45 Microbiology 08/14/16 13:20 Urine - Urine Clean Catch Urine Culture - Final NO GROWTH OBTAINED Assessment: This is a 80 year old female with PMHx of metastatic breast cancer, anemia, NIDDM, who presented to the ED with increased diffuse pain, weakness, hypercalcemia and was admitted for further evaluation and management of her condition. Plan: 1) Oncology: Metastatic breast cancer with diffuse skeletal and spine mets complicated by cord compression on C5-6 - MRI with extensive diffuse bony metastases are seen in the cervicothoracic spine. Extensive pathological bone marrow replacement is seen in C5,C6,C7. Compressed C6 vertebral body with retopulsion. 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 - Continue ferrous sulfate - Continue Vitamin B12, check level and redose appropriately 4) Endocrine: NIDDM - Continue Levemir 7u sq qhs (random glucose elevated this AM as patient was on D5 overnight to correct hypernatremia) - BGM ACHS - ISS ACHS 5) F/E/N: - Monitor electrolytes - Hypernatremia resolved - Hypercalcemia resolved - Diabetic diet 6) Prophylaxis: - PT - Lovenox 40mg sq daily 7) Dispo: - Requires continued inpatient care CODE STATUS: FULL CODE Visit type - Emergency Visit Emergency Visit: Yes ED Registration Date: 08/12/16 Care time: The patient presented to the Emergency Department on the above date and was hospitalized for further evaluation of their emergent condition. - New Patient This patient is new to me today: Yes Date on this admission: 08/18/16 - Critical Care Critical Care patient: No
--- NOTE | 2016-08-18 13:09 | PN ---
Progress Note (short form) - Note Progress Note: Radiation Oncology Pain at rest controlled on current regimen. Pain still exacerbated with any movement. Urge incontinence. MRI C-T spine shows pathologic compression fx at C6 with retropulsion assoc with cord compression at C5-6 and epidural extension. Rec: Cont decadron q6hr. Discussed B/A/R palliative RT with pt who agrees to proceed. RT to spine will begin pending hospital approval. Although multilevel extensive dz, would consider neurosx consult.
--- NOTE | 2016-08-18 13:27 | PN ---
Progress Note (short form) - Note Progress Note: NEUROSURGERY CONSULT DICTATED Pt examined Chart reviewed CT-MRI reviewed Metastatic breast ca with diffuse skeletal and spine mets; S/P pathologic fracture of right femur with pinning and radiation therapy Progression on arimidex and chemo switched Worsening R shoulder and B neck pain with decreased mobility and strength over last 10 days, no incontinence Rad onc input noted PE: AF, VSS In bed General- Cv-RR; Lungs- decreased BA at bases; Abd-benign, + BS; Ext- no sign of DVT NEURO- A/A/Ox3 CN- intact; Motor- 5/5 B UE except R triceps, wrist extensors and hand; B Prox LE 4/5; L foot DF 0 (chronic x 6 years per pt); Sensation- intact LT; DTR- hyporeflexia, no LTS C spine MRI: metastatic C5,6,7 involvement with C6 burst fracture and mild kyphosis; mild-moderate cord impingement, no edema T spine MRI- extensive dextroscoliosis, no cord impingement WBC 12.3, Hgb 10.[address] with pathological C6 fracture Given C5,6,7 involvement would need both anterior C5-7 corpectomies followed by C4-T1 ant fusion/instrumentation, will likely need posterior stabilization as well Pt understands the tx options and pros and cons of tx approaches She understands that her disease could progress despite medical tx and XRT, and ambulatory recovery is questionable with medical tx alone She opts for palliative XRT, which is reasonable Will order C collar
--- NOTE | 2016-08-18 17:20 | CONS ---
DATE OF CONSULTATION: DATE OF DICTATION: 08/18/2016 REQUESTING PHYSICIAN: MAMI King [employer]ER: Wang Milton MD, Neurosurgery. CHIEF COMPLAINT: Spinal vertebral metastasis. HISTORY OF PRESENT ILLNESS: The patient is a 80-year-old right-handed female with history of bilateral breast cancer, status post surgery and chemotherapy for ER/ IL positive breast cancer, who had experienced right femur metastasis approximately 1 year earlier, status post internal stabilization and radiation. She had remained on chemotherapy, but her disease has progressed. For the last 10 days she has had some neck pain and shoulder pain recently, in addition to some hip pain periodically. About 10 days ago, her ambulatory ability decreased, and about a week earlier she was not able to ambulate. She first went to a wheeled cane and then to a wheeled walker. She has bilateral lower extremity weakness as well as pain in the right shoulder and arm. Upon further questioning, she also has some weakness of her right hand and the right triceps while pushing the door away. She denies Lhermitte sign and has no bowel and bladder incontinence. PAST MEDICAL HISTORY: Significant for breast cancer, pathological fracture of the right femur. ADMISSION MEDICATIONS: Included glimepiride, vitamin D3, vitamin B12, and iron. ALLERGIES: There are no known drug allergies. FAMILY HISTORY: Noncontributory. SOCIAL HISTORY: She does not smoke and only drinks alcohol socially. She lives at home. REVIEW OF SYSTEMS: Otherwise negative for other major cardiovascular, pulmonary , gastrointestinal, genitourinary, endocrinologic, neurological, psychological problems except for the above. She has no fever or chills or any recent infection. PHYSICAL EXAMINATION: Vital Signs: Temperature is 98.3, blood pressure 155/90 with pulse rate 92. O2 saturation is 97% on 3 L. HEENT: Head is normocephalic, atraumatic, anicteric. Neck: Supple with no lymphadenopathy, no carotid bruit. Coronary: Examination demonstrated a regular rhythm. Lungs: Clear bilaterally except for decreased breath sounds in the bases. Abdomen: Benign. Extremity: Examination shows no obvious signs of DVT. Neurological: She is awake, alert, and oriented x3. Cranial nerve examination is intact II-XII. Motor examination shows upper extremity strength to be 5/5 except right deltoid, wrist extensor, and hand intrinsic muscles which are 4/5. Proximal bilateral lower extremities 4/5. She has a complete foot drop of the left foot which has been present for 6 years according to the patient. She never had any extensive evaluation for that. Sensory examination is intact to light touch. Deep tendon reflexes are hyporeflexive throughout. Her gait is not tested for safety reasons. CT scan of the cervical spine demonstrated diffuse bony metastases involving the entire spine as well as the left iliac bone, cervical, thoracic, as well as lumbar spine. There is bony destruction of the C6 vertebral body with retropulsion noted. There is also involvement of the left L4 vertebral body with impingement of the left L4 nerve root. There is multilevel degenerative disk disease. MRI examination of the cervical spine with and without contrast demonstrated metastatic involvement of C5, C6, and C7 vertebral body. There is retropulsion of the C6 pathological fracture with enhancement in the epidural space. There is mild to moderate cord impingement at this level. There is slight kyphotic deformity. MRI of the thoracic spine demonstrated dextroscoliosis around mid thoracic spine approximately 45 degrees. There is no cord compression in the thoracic spine. IMPRESSION: 1. 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 2. Cervical myeloradiculopathy. 3. Metastatic breast cancer. RECOMMENDATIONS: The patient presents with 10 days' history of progressive weakness and inability to ambulate. She also has neck and shoulder pain. MRI and CT scan demonstrated metastatic lesion of the cervical spine involving at least the C5, C6 and C7 vertebral bodies. There is a pathological burst fracture at C6 with retropulsion of the posterior cortex and mild to moderate spinal cord impingement. There is no edema of spinal cord noted on MRI examination. I discussed the pros and cons of various treatment approaches including palliative radiation versus surgical intervention. Given the 3-level involvement, corpectomy at C5, C6, and C7 will likely need to be carried out, followed by interbody fusion cages from C4-T1 and instrumentation. A second procedure will need to be done from a posterior approach for stabilization at least from C4-T1 including lateral mass screw and pedicle screws at C4, C5, and C6 and pedicle screws at C7, T1. This is an extremely extensive procedure with significant potential morbidity. The patient understands the pros and cons of treatments available to her as well as potential risks and benefits. She is opting for palliative radiation only at this time. That is not unreasonable given the amount of surgery that she would need to address this problem adequately. I did offer a rigid cervical collar for her to use through radiation. This would give her some cervical spine support. The patient does understand that despite medical treatments alone, her condition can continue to deteriorate, and her ambulatory ability recovery may be suboptimal. All questions were answered to the best of my ability. WANG MILTON M.D. [id number] MTDD
[2016-08-18] MEDS: SENNOSIDES 8.6MG TABLET (FP) PO SCH (21:52)
[2016-08-18] MEDS: INSULIN DETEMIR 100 UNITS/ML MDV SQ SCH (21:57)
[2016-08-19] MEDS: DEXAMETHASONE 4 MG TABLET (FP) PO SCH ×3 (06:15→22:06)
[2016-08-19] MEDS: INSULIN SLIDING SCALE (NOVOLOG) 1 VIAL SQ SCH ×4 (06:17→22:08)
[2016-08-19] MEDS: ALBUTEROL SO4 2.5/IPRATROPIUM 0.5 INH SOL 3 ML VIAL.NEB. NEB SCH ×4 (07:33→23:07)
--- NOTE | 2016-08-19 08:02 | PN ---
Progress Note (short form) - Note Progress Note: NEUROSURGERY Metastatic breast ca with diffuse skeletal and spine mets; S/P pathologic fracture of right femur with pinning and radiation therapy Worsening R shoulder and B neck pain with decreased mobility and strength over last 10 days, no incontinence PE: AF, VSS General- Cv-RR; Lungs- decreased BA at bases; Abd-benign, + BS; Ext- no sign of DVT NEURO- A/A/Ox4 CN- intact; Motor- 5/5 B UE except R triceps, wrist extensors and hand; B Prox LE 4/5; L foot DF 0 (chronic x 6 years per pt); Sensation- intact LT; DTR- hyporeflexia, no LTS C spine MRI: metastatic C5,6,7 involvement with C6 burst fracture and mild kyphosis; mild-moderate cord impingement, no edema T spine MRI- extensive dextroscoliosis, no cord impingement Bone scan- multifocal uptakes of skeleton normal GFR Metastatic breast CT with pathological C6 fracture Given C5,6,7 involvement would need both anterior C5-7 corpectomies followed by C4-T1 ant fusion/instrumentation, will also likely need posterior stabilization as well Pt understands the tx options and pros and cons of tx approaches She understands that her disease could progress despite medical tx and XRT C collar refused- reinforced importance of immobilization Though L foot drop reportedly "old" would order Ls spine MRI with diego given CT findings at L4 (pt only had R leg MRI previously not LS spine MRI)
[2016-08-19 08:10] LABS: MCH 26.1 pg (25.7-33.7); MEAN CELL VOLUME 81.4 fl (80-96); MEAN PLT VOLUME 8.9 fl (7.5-11.1); PLATELET COUNT 324 K/MM3 (134-434); RDW 14.9 % (11.6-15.6); WHITE BLOOD COUNT 14.3 K/mm3 (4.0-10.0)
--- NOTE | 2016-08-19 08:31 | PN ---
Progress Note (short form) - Note Progress Note: Radiation Oncology Seen by neurosx, appreciate Dr Meadows's consult. She understands the surgical and non surgical options. Will proceed with pallative RT planning, hopefully today. Increase decadron to 4mg q6h during RT. GI prophylaxis. Neurologic monitoring. Pain mgt.
--- NOTE | 2016-08-19 09:06 | PN ---
Progress Note (short form) - Note Progress Note: Pt seen, states she is feeling ok, pain well controlled. She is not an ambulator, will take precautions with transfers. NTD from an ortho pov at this time. Will follow PRN
[2016-08-19 09:12] LABS: ALBUMIN 2.8 g/dl (3.4-5.0); ALK PHOS 287 U/L (45-117); ANION GAP 7 (8-16); BILIRUBIN,TOTAL 0.6 mg/dL (0.2-1.0); CALCIUM 8.4 mg/dL (8.5-10.1); CO2 30 mmol/L (21-32); CREATININE 0.6 mg/dL (0.55-1.02); GLUCOSE,RANDOM 115 mg/dL (74-106); SGOT/AST 40 U/L (15-37); SGPT/ALT 26 U/L (12-78); TOT PROT 6.6 g/dl (6.4-8.2)
[2016-08-19] MEDS: DOCUSATE SODIUM 100 MG CAPSULE (FP) PO SCH ×2 (11:54→22:07)
[2016-08-19] MEDS: ENOXAPARIN NA (PORCINE) 40 MG/0.4 ML DISP.SYRIN SQ SCH (11:54)
[2016-08-19] MEDS: CYANOCOBALAMIN 1,000 MCG TABLET (FP) PO SCH (11:54)
[2016-08-19] MEDS: CHOLECALCIFEROL (VITAMIN D3) 400 UNIT TABLET (FP) PO SCH (11:55)
[2016-08-19] MEDS: FERROUS SO4 325 MG TABLET (FP) PO SCH (11:55)
[2016-08-19] MEDS: PANTOPRAZOLE 40 MG TABLET (FP) PO SCH (11:56)
[2016-08-19] MEDS: POLYETHYLENE GLYCOL 3350 119 GM BTL PO SCH (11:56)
[2016-08-19] MEDS: fentaNYL 12mcg/hr PATCH.TD72 TD SCH (16:37)
[2016-08-19] MEDS: fentaNYL 25mcg/hr PATCH.TD72 TD SCH (16:37)
[2016-08-19] MEDS: FENTANYL PATCH WASTE MC PRN (16:42)
[2016-08-19] MEDS ORDERED: INSULIN (NOVOLOG) ASPART 100 UNITS/ML 10ML VIAL ONE (16:48)
--- NOTE | 2016-08-19 17:34 | PN ---
Physical Exam: SUBJECTIVE: Patient seen and examined s/p scan. States her pain is stable, she has had foot drop for 5 years. OBJECTIVE: Vital Signs Period Temp Pulse Resp BP Sys/Cash Pulse Ox Last 24 Hr 98.1 F-98.4 F 75-99 20-20 119-140/62-67 96-97 PE Neuro: alert, awake, cn 2-12intact HEENT: poor dentition Pulm: basilar crackles R>L Breast: R breast mass 2-3oclock, L breast w/ cutaneous changes, retracted CV: s1 s2 rrr +murmur Abd: s nt nd +bs Ext: R shoulder/RUE tenderness, L foot drop cannot flex at ankle Laboratory Results - last 24 hr 08/18/16 08/19/16 08/19/16 21:55 06:15 06:30 WBC 14.3 H RBC 4.14 Hgb 10.8 Hct 33.7 MCV 81.4 MCHC 32.0 RDW 14.9 Plt Count 324 MPV 8.9 Sodium Potassium Chloride Carbon Dioxide Anion Gap BUN Creatinine Creat Clearance w eGFR POC Glucometer 180 131 Random Glucose Calcium Total Bilirubin AST ALT Alkaline Phosphatase Total Protein Albumin 08/19/16 08/19/16 08/19/16 06:30 11:58 16:36 WBC RBC Hgb Hct MCV MCHC RDW Plt Count MPV Sodium 143 Potassium 4.1 Chloride 106 Carbon Dioxide 30 Anion Gap 7 L BUN 31 H D Creatinine 0.6 Creat Clearance w eGFR > 60 POC Glucometer 247 278 Random Glucose 115 H D Calcium 8.4 L Total Bilirubin 0.6 D AST 40 H ALT 26 Alkaline Phosphatase 287 H Total Protein 6.6 Albumin 2.8 L Active Medications Generic Name Dose Route Start Last Admin Trade Name Freq PRN Reason Stop Dose Admin Acetaminophen 650 mg 08/12/16 14:57 08/14/16 13:56 Tylenol - PO 650 mg Q4H PRN Administration FEVER OR PAIN Albuterol/Ipratropium 1 amp 08/14/16 11:30 08/19/16 10:30 Duoneb - NEB Not Given Q6H DONNY Cholecalciferol 500 unit 08/13/16 10:00 08/19/16 11:55 Vitamin D3 - PO 500 unit DAILY DONNY Administration Cyanocobalamin 2,500 mcg 08/13/16 10:00 08/19/16 11:54 Vitamin B12 - PO 2,500 mcg DAILY DONNY Administration Dexamethasone 4 mg 08/16/16 22:00 08/19/16 13:44 Decadron - PO 4 mg TID DONNY Administration Docusate Sodium 100 mg 08/12/16 22:00 08/19/16 11:54 Colace - PO 100 mg BID DONNY Administration Enoxaparin Sodium 40 mg 08/15/16 10:00 08/19/16 11:54 Lovenox - SQ 40 mg DAILY DONNY Administration Fentanyl 1 patch 08/16/16 16:45 08/19/16 16:37 Duragesic 12mcg Patch - TD 08/23/16 16:31 1 patch Q72H DONNY Administration Fentanyl 1 patch 08/16/16 17:30 08/19/16 16:37 Duragesic 25mcg Patch - TD 1 patch Q72H DONNY Administration Ferrous Sulfate 325 mg 08/13/16 10:00 08/19/16 11:55 Feosol - PO 325 mg DAILY DONNY Administration Insulin Aspart 1 vial 08/12/16 16:30 08/19/16 16:40 Novolog Vial Sliding Scale - SQ 6 unit ACHS DONNY Administration Protocol Insulin Detemir 7 units 08/17/16 22:00 08/18/16 21:57 Levemir Vial SQ 7 units HS DONNY Administration Miscellaneous 1 each 08/12/16 15:00 08/19/16 16:42 Duragesic Patch Waste MC 1 each PRN PRN Administration PAIN Miscellaneous 1 each 08/14/16 11:23 08/19/16 16:42 Duragesic Patch Waste TD 08/21/16 11:22 1 each PRN PRN Administration PAIN Miscellaneous 1 each 08/16/16 16:31 Duragesic Patch Waste TD PRN PRN PAIN Ondansetron HCl 4 mg 08/12/16 14:57 Zofran Injection IVPB Q4H PRN NAUSEA Oxycodone HCl 10 mg 08/12/16 15:01 08/17/16 08:54 Roxicodone - PO 10 mg Q4H PRN Administration MODERATE PAIN Pantoprazole Sodium 40 mg 08/15/16 13:15 08/19/16 11:56 Protonix - PO 40 mg DAILY DONNY Administration Polyethylene Glycol 17 gm 08/14/16 11:30 08/19/16 11:56 Miralax (For Daily Use) - PO 17 grams DAILY DONNY Administration Senna 2 tab 08/12/16 22:00 08/18/16 21:52 Senna - PO 2 tab HS DONNY Administration Imaging: - MRI with extensive diffuse bony metastases are seen in the cervicothoracic spine. Extensive pathological bone marrow replacement is seen in C5,C6,C7, C6 retropulsion with cord compression c5-c6 Assessment: 80 year old female with PMHx of metastatic breast cancer, anemia, NIDDM, who presented to the ED with increased diffuse pain admitted with progressive weakness and hypercalcemia. Plan: 1. Metastatic breast cancer with diffuse skeletal and spine mets complicated by cord compression on C5-6 - For CT simulation today - Once RT initiated will increase decadron to q6 - Continue Fentanyl patch - recs appreciated - Will obtain soft c collar, as pt refusing hard collar, no neurosurgical intervention at this time, decision to move forward w/ RT - Radiation oncology/ Neurosurgery seeing and appreciated 2. UTI - Completed treatment on 08/16 3. 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 DM II - Continue Levemir 7 units HS - BGM, ISS ACHS 5. FEN - Hypernatremia resolved - Hypercalcemia resolved - Diabetic diet 6. PPX - PT - Lovenox 40mg sq daily CODE STATUS: FULL CODE Visit type - Emergency Visit Emergency Visit: Yes ED Registration Date: 08/12/16 Care time: The patient presented to the Emergency Department on the above date and was hospitalized for further evaluation of their emergent condition. - New Patient This patient is new to me today: No - Critical Care Critical Care patient: No
[2016-08-19] MEDS: SENNOSIDES 8.6MG TABLET (FP) PO SCH (22:05)
[2016-08-19] MEDS: INSULIN DETEMIR 100 UNITS/ML MDV SQ SCH (22:06)
[2016-08-20] MEDS: ALBUTEROL SO4 2.5/IPRATROPIUM 0.5 INH SOL 3 ML VIAL.NEB. NEB SCH ×3 (05:20→18:25)
[2016-08-20 06:46] LABS: BASOPHIL 0.1 % (0-2.0); EOSINOPHIL 0.1 % (0-4.5); MCHC 31.9 g/dl (32.0-36.0); MEAN CELL VOLUME 81.5 fl (80-96); MEAN PLT VOLUME 8.5 fl (7.5-11.1); NEUTROPHILS 84.8 % (42.8-82.8); PLATELET COUNT 306 K/MM3 (134-434); RDW 15.3 % (11.6-15.6); WHITE BLOOD COUNT 15.1 K/mm3 (4.0-10.0)
[2016-08-20] MEDS: INSULIN SLIDING SCALE (NOVOLOG) 1 VIAL SQ SCH ×4 (07:02→22:18)
[2016-08-20] MEDS: DEXAMETHASONE 4 MG TABLET (FP) PO SCH ×4 (07:02→23:14)
[2016-08-20 07:10] LABS: ALBUMIN 2.7 g/dl (3.4-5.0); ANION GAP 6 (8-16); CALCIUM 8.6 mg/dL (8.5-10.1); CO2 33 mmol/L (21-32); CREATININE 0.5 mg/dL (0.55-1.02); GLUCOSE,RANDOM 137 mg/dL (74-106); MAGNESIUM 2.4 mg/dL (1.8-2.4); PHOSPHOROUS 2.9 mg/dL (2.5-4.9); SGOT/AST 36 U/L (15-37); SGPT/ALT 24 U/L (12-78)
[2016-08-20 07:12] LABS: ALK PHOS 292 U/L (45-117); BILIRUBIN,TOTAL 0.5 mg/dL (0.2-1.0); TOT PROT 6.7 g/dl (6.4-8.2)
[2016-08-20] MEDS: PANTOPRAZOLE 40 MG TABLET (FP) PO SCH (09:52)
[2016-08-20] MEDS: FERROUS SO4 325 MG TABLET (FP) PO SCH (09:52)
[2016-08-20] MEDS: DOCUSATE SODIUM 100 MG CAPSULE (FP) PO SCH ×2 (09:52→22:13)
[2016-08-20] MEDS: ENOXAPARIN NA (PORCINE) 40 MG/0.4 ML DISP.SYRIN SQ SCH (09:52)
[2016-08-20] MEDS: CHOLECALCIFEROL (VITAMIN D3) 400 UNIT TABLET (FP) PO SCH (09:52)
[2016-08-20] MEDS: POLYETHYLENE GLYCOL 3350 119 GM BTL PO SCH (09:52)
--- NOTE | 2016-08-20 10:19 | PN ---
Progress Note (short form) - Note Progress Note: NEUROSURGERY Stable R shoulder and B neck pain with decreased mobility and strength Rigid or soft collar did not agree with pt PE: AF, VSS General- Cv-RR; Lungs- decreased BA at bases; Abd-benign, + BS; Ext- no sign of DVT NEURO- A/A/Ox4 CN- intact; Motor- 5/5 B UE except R triceps, wrist extensors and hand; B Prox LE 4/5; L foot DF 0 (chronic x 6 years per pt); Sensation- intact LT; DTR- hyporeflexia, no LTS C spine MRI: metastatic C5,6,7 involvement with C6 pathological burst fracture and mild kyphosis; mild-moderate cord impingement, no edema T spine MRI- extensive dextroscoliosis, no cord impingement Bone scan- multifocal uptakes of skeleton normal GFR Metastatic breast CT with pathological C6 fracture Given C5,6,7 involvement would need both anterior C5-7 corpectomies followed by C4-T1 ant fusion/instrumentation, will also likely need posterior stabilization as well Pt understands the tx options and pros and cons of tx approaches and is proceeding with ext beam XRT C collar refused- potential consequences informed Though L foot drop reportedly "old" would order Ls spine MRI with diego given CT findings at L4 (pt only had R leg MRI previously not LS spine MRI)
--- NOTE | 2016-08-20 14:50 | PN ---
Progress Note (short form) - Note Progress Note: NO C/O PAIN IN UE OR LE. WILL FOLLOW. IF PAIN INCREASES CONSIDER IM RODDING
--- NOTE | 2016-08-20 15:43 | PN ---
Physical Exam: SUBJECTIVE: Patient seen and examined. she is tolerating soft collar, she says shes too weak to stand, she became tearful. OBJECTIVE: Vital Signs Period Temp Pulse Resp BP Sys/Cash Pulse Ox Last 24 Hr 97.8 F-98.6 F 73-103 18-20 123-153/68-85 96-98 PE Neuro: alert, awake, cn 2-12intact Pulm: basilar crackles R>L Breast: R breast mass 2-3oclock, L breast w/ cutaneous changes, retracted CV: s1 s2 rrr +murmur Abd: s nt nd +bs Ext: R shoulder/RUE tenderness, L foot drop cannot flex at ankle CBCD WBC 15.1 K/mm3 (4.0-10.0) H 08/20/16 05:45 RBC 4.19 M/mm3 (3.60-5.2) 08/20/16 05:45 Hgb 10.9 GM/dL (10.7-15.3) 08/20/16 05:45 Hct 34.2 % (32.4-45.2) 08/20/16 05:45 MCV 81.5 fl (80-96) 08/20/16 05:45 MCHC 31.9 g/dl (32.0-36.0) L 08/20/16 05:45 RDW 15.3 % (11.6-15.6) 08/20/16 05:45 Plt Count 306 K/MM3 (134-434) 08/20/16 05:45 MPV 8.5 fl (7.5-11.1) 08/20/16 05:45 CMP Sodium 142 mmol/L (136-145) 08/20/16 05:45 Potassium 4.5 mmol/L (3.5-5.1) 08/20/16 05:45 Chloride 103 mmol/L (98-107) 08/20/16 05:45 Carbon Dioxide 33 mmol/L (21-32) H 08/20/16 05:45 Anion Gap 6 (8-16) L 08/20/16 05:45 BUN 29 mg/dL (7-18) H 08/20/16 05:45 Creatinine 0.5 mg/dL (0.55-1.02) L 08/20/16 05:45 Creat Clearance w eGFR > 60 (>60) 08/20/16 05:45 Calcium 8.6 mg/dL (8.5-10.1) 08/20/16 05:45 Total Bilirubin 0.5 mg/dL (0.2-1.0) 08/20/16 05:45 AST 36 U/L (15-37) 08/20/16 05:45 ALT 24 U/L (12-78) 08/20/16 05:45 Alkaline Phosphatase 292 U/L (45-117) H 08/20/16 05:45 Total Protein 6.7 g/dl (6.4-8.2) 08/20/16 05:45 Albumin 2.7 g/dl (3.4-5.0) L 08/20/16 05:45 Active Medications Generic Name Dose Route Start Last Admin Trade Name Freq PRN Reason Stop Dose Admin Acetaminophen 650 mg 08/12/16 14:57 08/14/16 13:56 Tylenol - PO 650 mg Q4H PRN Administration FEVER OR PAIN Albuterol/Ipratropium 1 amp 08/14/16 11:30 08/20/16 11:30 Duoneb - NEB 1 amp Q6H DONNY Administration Cholecalciferol 500 unit 08/13/16 10:00 08/20/16 09:52 Vitamin D3 - PO 500 unit DAILY DONNY Administration Dexamethasone 4 mg 08/16/16 22:00 08/20/16 14:37 Decadron - PO 4 mg TID DONNY Administration Docusate Sodium 100 mg 08/12/16 22:00 08/20/16 09:52 Colace - PO 100 mg BID DONNY Administration Enoxaparin Sodium 40 mg 08/15/16 10:00 08/20/16 09:52 Lovenox - SQ 40 mg DAILY DONNY Administration Fentanyl 1 patch 08/16/16 16:45 08/19/16 16:37 Duragesic 12mcg Patch - TD 08/23/16 16:31 1 patch Q72H DONNY Administration Fentanyl 1 patch 08/16/16 17:30 08/19/16 16:37 Duragesic 25mcg Patch - TD 1 patch Q72H DONNY Administration Ferrous Sulfate 325 mg 08/13/16 10:00 08/20/16 09:52 Feosol - PO 325 mg DAILY DONNY Administration Insulin Aspart 1 vial 08/12/16 16:30 08/20/16 11:49 Novolog Vial Sliding Scale - SQ 4 unit ACHS DONNY Administration Protocol Insulin Detemir 7 units 08/17/16 22:00 08/19/16 22:06 Levemir Vial SQ 7 units HS DONNY Administration Miscellaneous 1 each 08/12/16 15:00 08/19/16 16:42 Duragesic Patch Waste MC 1 each PRN PRN Administration PAIN Miscellaneous 1 each 08/14/16 11:23 08/19/16 16:42 Duragesic Patch Waste TD 08/21/16 11:22 1 each PRN PRN Administration PAIN Miscellaneous 1 each 08/16/16 16:31 Duragesic Patch Waste TD PRN PRN PAIN Ondansetron HCl 4 mg 08/12/16 14:57 Zofran Injection IVPB Q4H PRN NAUSEA Oxycodone HCl 10 mg 08/12/16 15:01 08/17/16 08:54 Roxicodone - PO 10 mg Q4H PRN Administration MODERATE PAIN Pantoprazole Sodium 40 mg 08/15/16 13:15 08/20/16 09:52 Protonix - PO 40 mg DAILY DONNY Administration Polyethylene Glycol 17 gm 08/14/16 11:30 08/20/16 09:52 Miralax (For Daily Use) - PO 17 grams DAILY DONNY Administration Senna 2 tab 08/12/16 22:00 08/19/16 22:05 Senna - PO 2 tab HS DONNY Administration Imaging: - MRI with extensive diffuse bony metastases are seen in the cervicothoracic spine. Extensive pathological bone marrow replacement is seen in C5,C6,C7, C6 retropulsion with cord compression c5-c6 Assessment: 80 year old female with PMHx of metastatic breast cancer, anemia, NIDDM, who presented to the ED with increased diffuse pain admitted with progressive weakness and hypercalcemia. Plan: 1. Metastatic breast cancer with diffuse skeletal and spine mets complicated by cord compression on C5-6 - For RT x1 session today (total 10) - Will increase decadron to q6 - Continue Fentanyl patch - Pt tolerating soft C collar - No neurosurgical intervention at present - If RUE pain continues, ortho for IM rodding 2. UTI - Completed treatment on 08/16 3. 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 DM II - Continue Levemir 7 units HS - BGM, ISS ACHS 5. Electrolytes - Hypernatremia resolved - Hypercalcemia, corrected 9.6, resolved 6. PPX - PT - Lovenox 40mg sq daily CODE STATUS: FULL CODE Visit type - Emergency Visit Emergency Visit: Yes ED Registration Date: 08/12/16 Care time: The patient presented to the Emergency Department on the above date and was hospitalized for further evaluation of their emergent condition. - New Patient This patient is new to me today: No - Critical Care Critical Care patient: No
--- NOTE | 2016-08-20 17:27 | PN ---
Progress Note (short form) - Note Progress Note: Patient seen and examined Pain somewhat improved RT --#1 today. Will check on mcclain . Would consider field to include RUE. Last Vital Signs Temp Pulse Resp BP Pulse Ox 98.6 F 103 H 18 141/80 97 08/20/16 14:59 08/20/16 14:59 08/20/16 14:59 08/20/16 14:59 08/20/16 11:46 HEENT: MALI, EOM Intact Oropharynx: No thrush, No mucositis Breasts: -right breast mass and Pagetoid nipple left breast with massw Cor: RSR, No murmurs, No gallops Lungs:diminished breath sounds bilaterally Abd: Soft, Normal bowel sounds, No organomegaly Ext:No significant edema Skin: No rashes, Integument intact CBC, BMP 08/20/16 05:45 08/20/16 05:45 Current Medications Generic Name Dose Route Start Last Admin Trade Name Freq PRN Reason Stop Dose Admin Acetaminophen 650 mg 08/12/16 14:57 08/14/16 13:56 Tylenol - PO 650 mg Q4H PRN Administration FEVER OR PAIN Albuterol/Ipratropium 1 amp 08/14/16 11:30 08/20/16 11:30 Duoneb - NEB 1 amp Q6H DONNY Administration Cholecalciferol 500 unit 08/13/16 10:00 08/20/16 09:52 Vitamin D3 - PO 500 unit DAILY DONNY Administration Dexamethasone 4 mg 08/20/16 18:00 08/20/16 17:17 Decadron - PO 4 mg Q6HPO DONNY Administration Docusate Sodium 100 mg 08/12/16 22:00 08/20/16 09:52 Colace - PO 100 mg BID DONNY Administration Enoxaparin Sodium 40 mg 08/15/16 10:00 08/20/16 09:52 Lovenox - SQ 40 mg DAILY DONNY Administration Fentanyl 1 patch 08/16/16 16:45 08/19/16 16:37 Duragesic 12mcg Patch - TD 08/23/16 16:31 1 patch Q72H DONNY Administration Fentanyl 1 patch 08/16/16 17:30 08/19/16 16:37 Duragesic 25mcg Patch - TD 1 patch Q72H DONNY Administration Ferrous Sulfate 325 mg 08/13/16 10:00 08/20/16 09:52 Feosol - PO 325 mg DAILY DONNY Administration Insulin Aspart 1 vial 08/12/16 16:30 08/20/16 16:55 Novolog Vial Sliding Scale - SQ 4 unit ACHS DONNY Administration Protocol Insulin Detemir 7 units 08/17/16 22:00 08/19/16 22:06 Levemir Vial SQ 7 units HS DONNY Administration Miscellaneous 1 each 08/12/16 15:00 08/19/16 16:42 Duragesic Patch Waste MC 1 each PRN PRN Administration PAIN Miscellaneous 1 each 08/14/16 11:23 08/19/16 16:42 Duragesic Patch Waste TD 08/21/16 11:22 1 each PRN PRN Administration PAIN Miscellaneous 1 each 08/16/16 16:31 Duragesic Patch Waste TD PRN PRN PAIN Ondansetron HCl 4 mg 08/12/16 14:57 Zofran Injection IVPB Q4H PRN NAUSEA Oxycodone HCl 10 mg 08/12/16 15:01 08/17/16 08:54 Roxicodone - PO 10 mg Q4H PRN Administration MODERATE PAIN Pantoprazole Sodium 40 mg 08/15/16 13:15 08/20/16 09:52 Protonix - PO 40 mg DAILY DONNY Administration Polyethylene Glycol 17 gm 08/14/16 11:30 08/20/16 09:52 Miralax (For Daily Use) - PO 17 grams DAILY DONNY Administration Senna 2 tab 08/12/16 22:00 08/19/16 22:05 Senna - PO 2 tab HS DONNY Administration Impression: Metastatic breast Ca with extensive skeletal mets. Cord compression C-spine. RT /steroids Pain management improved on increased dose of duragesic. Plan: Per NS- Lumbar MRI Continue PT If possible will try and order Faslodex. Consider field of RT to include RUE
--- NOTE | 2016-08-20 17:50 | PN ---
Progress Note (short form) - Note Progress Note: Radiation Oncology Commenced palliative RT to C5-6 and right humerus (intramedullary met). Tolerated 1st tx fairly well today. Cont decadron 4q6h during RT. Follow CBC as multiple RT mcclain. RT to LS spine to be considered pending current mcclain. Check MRI LS spine. Cont soft collar, neuro monitoring, PT as tolerated
[2016-08-20] MEDS: INSULIN DETEMIR 100 UNITS/ML MDV SQ SCH (22:13)
[2016-08-20] MEDS: SENNOSIDES 8.6MG TABLET (FP) PO SCH (22:13)
[2016-08-21] MEDS: ALBUTEROL SO4 2.5/IPRATROPIUM 0.5 INH SOL 3 ML VIAL.NEB. NEB SCH ×4 (00:05→17:53)
[2016-08-21] MEDS: DEXAMETHASONE 4 MG TABLET (FP) PO SCH ×4 (05:47→23:22)
[2016-08-21] MEDS: INSULIN SLIDING SCALE (NOVOLOG) 1 VIAL SQ SCH ×4 (06:30→21:39)
[2016-08-21] MEDS: oxyCODONE HCL 5 MG TABLET PO PRN ×2 (08:29→21:30)
[2016-08-21 08:54] LABS: BASOPHIL 0.1 % (0-2.0); EOSINOPHIL 0.1 % (0-4.5); MCH 26.1 pg (25.7-33.7); MEAN CELL VOLUME 81.6 fl (80-96); MEAN PLT VOLUME 8.5 fl (7.5-11.1); NEUTROPHILS 86.6 % (42.8-82.8); PLATELET COUNT 343 K/MM3 (134-434); RDW 15.3 % (11.6-15.6); WHITE BLOOD COUNT 19.8 K/mm3 (4.0-10.0)
[2016-08-21] MEDS: ENOXAPARIN NA (PORCINE) 40 MG/0.4 ML DISP.SYRIN SQ SCH (09:07)
[2016-08-21] MEDS: CHOLECALCIFEROL (VITAMIN D3) 400 UNIT TABLET (FP) PO SCH (09:07)
[2016-08-21] MEDS: PANTOPRAZOLE 40 MG TABLET (FP) PO SCH (09:07)
[2016-08-21] MEDS: FERROUS SO4 325 MG TABLET (FP) PO SCH (09:07)
[2016-08-21] MEDS: DOCUSATE SODIUM 100 MG CAPSULE (FP) PO SCH ×2 (09:07→21:30)
[2016-08-21] MEDS: POLYETHYLENE GLYCOL 3350 119 GM BTL PO SCH (09:08)
--- NOTE | 2016-08-21 09:50 | PN ---
Progress Note (short form) - Note Progress Note: NEUROSURGERY Stable R shoulder and B neck pain Rigid or soft collar did not agree with pt PE: AF, VSS General- Cv-RR; Lungs- decreased BA at bases; Abd-benign, + BS; Ext- no sign of DVT NEURO- A/A/Ox4 CN- intact; Motor- 5/5 B UE except R triceps, wrist extensors and hand; B Prox LE 4/5; L foot DF 0 (chronic x 6 years per pt); Sensation- intact LT; DTR- hyporeflexia, no LTS C spine MRI: metastatic C5,6,7 involvement with C6 pathological burst fracture and mild kyphosis; mild-moderate cord impingement, no edema T spine MRI- extensive dextroscoliosis, no cord impingement LS spine MRI- Extensive Lumbar and sacral vertebral involvement, L L4 vertebral involvement with extension into L L4 pedicle and foramen, S2 pathological fx Bone scan- multifocal uptakes of skeleton Metastatic breast CT with pathological C6 fracture and extensive LS spine involvement Given C5,6,7 involvement would need both anterior C5-7 corpectomies followed by C4-T1 ant fusion/instrumentation, will also likely need posterior stabilization as well LS spine disease too extensive for surgical tx- MRI findings d/w pt Pt understands the tx options and pros and cons of tx approaches and is proceeding with ext beam XRT C collar refused- potential consequences informed Palliative LS spine XRT if feasible per rad onc
--- NOTE | 2016-08-21 11:24 | PN ---
Progress Note (short form) - Note Progress Note: Patient without complaints this morning. MRI overnight. Meds reviewed. Current Medications Generic Name Dose Route Start Last Admin Trade Name Freq PRN Reason Stop Dose Admin Acetaminophen 650 mg 08/12/16 14:57 08/14/16 13:56 Tylenol - PO 650 mg Q4H PRN Administration FEVER OR PAIN Albuterol/Ipratropium 1 amp 08/14/16 11:30 08/21/16 06:50 Duoneb - NEB Not Given Q6H DONNY Cholecalciferol 500 unit 08/13/16 10:00 08/21/16 09:07 Vitamin D3 - PO 500 unit DAILY DONNY Administration Dexamethasone 4 mg 08/20/16 18:00 08/21/16 05:47 Decadron - PO 4 mg Q6HPO DONNY Administration Docusate Sodium 100 mg 08/12/16 22:00 08/21/16 09:07 Colace - PO 100 mg BID DONNY Administration Enoxaparin Sodium 40 mg 08/15/16 10:00 08/21/16 09:07 Lovenox - SQ 40 mg DAILY DONNY Administration Fentanyl 1 patch 08/16/16 16:45 08/19/16 16:37 Duragesic 12mcg Patch - TD 08/23/16 16:31 1 patch Q72H DONNY Administration Fentanyl 1 patch 08/16/16 17:30 08/19/16 16:37 Duragesic 25mcg Patch - TD 1 patch Q72H DONNY Administration Ferrous Sulfate 325 mg 08/13/16 10:00 08/21/16 09:07 Feosol - PO 325 mg DAILY DONNY Administration Fulvestrant 500 mg 08/24/16 10:00 Faslodex - IM 08/24/16 10:01 ONCE ONE Insulin Aspart 1 vial 08/12/16 16:30 08/21/16 06:30 Novolog Vial Sliding Scale - SQ 4 unit ACHS DONNY Administration Protocol Insulin Detemir 7 units 08/17/16 22:00 08/20/16 22:13 Levemir Vial SQ 7 units HS DONNY Administration Miscellaneous 1 each 08/12/16 15:00 08/19/16 16:42 Duragesic Patch Waste MC 1 each PRN PRN Administration PAIN Miscellaneous 1 each 08/14/16 11:23 08/19/16 16:42 Duragesic Patch Waste TD 08/21/16 11:22 1 each PRN PRN Administration PAIN Miscellaneous 1 each 08/16/16 16:31 Duragesic Patch Waste TD PRN PRN PAIN Ondansetron HCl 4 mg 08/12/16 14:57 Zofran Injection IVPB Q4H PRN NAUSEA Oxycodone HCl 10 mg 08/12/16 15:01 08/21/16 08:29 Roxicodone - PO 10 mg Q4H PRN Administration MODERATE PAIN Pantoprazole Sodium 40 mg 08/15/16 13:15 08/21/16 09:07 Protonix - PO 40 mg DAILY DONNY Administration Polyethylene Glycol 17 gm 08/14/16 11:30 08/21/16 09:08 Miralax (For Daily Use) - PO 17 grams DAILY DONNY Administration Senna 2 tab 08/12/16 22:00 08/20/16 22:13 Senna - PO 2 tab HS DONNY Administration On exam: Last Vital Signs Temp Pulse Resp BP Pulse Ox 98.2 F 88 18 160/85 97 08/21/16 08:00 08/21/16 08:00 08/21/16 08:00 08/21/16 08:00 08/20/16 21:00 Lying comfortably in bed. Well hydrated, no pallor or icterus. No dependant edema Chest: good AE BL, clear. CVS: S1, S2, no gallop or murmur. Abdomen: soft non-tender, no masses or organomegaly. Neuro: Alert and oriented. CBC, BMP 08/21/16 07:25 Assesment: Metastatic breast CT with extensive skeletal metastases. Pathological C6 fracture and extensive LS spine involvement. Appreciate input neurosurgery. Not a candidate for surgery. RTX initiated yesterday, will continue on Tuesday. Systemic therapy to be considered.
[2016-08-21 12:58] LABS: ALBUMIN 3.2 g/dl (3.4-5.0); ALK PHOS 343 U/L (45-117); ANION GAP 11 (8-16); BILIRUBIN,TOTAL 0.4 mg/dL (0.2-1.0); CALCIUM 9.3 mg/dL (8.5-10.1); CO2 27 mmol/L (21-32); CREATININE 0.5 mg/dL (0.55-1.02); GLUCOSE,RANDOM 86 mg/dL (74-106); SGOT/AST 46 U/L (15-37); SGPT/ALT 26 U/L (12-78); TOT PROT 7.4 g/dl (6.4-8.2)
--- NOTE | 2016-08-21 15:02 | PN ---
Physical Exam: SUBJECTIVE: Patient seen and examined. She had some choking with todays lunch because it was dry. She is better now. Pain is somewhat improved OBJECTIVE: Vital Signs Period Temp Pulse Resp BP Sys/Cash Pulse Ox Last 24 Hr 97.4 F-98.2 F 73-104 16-18 128-160/65-85 97-97 PE Neuro: alert, awake, cn 2-12intact Pulm: basilar crackles R>L +NC Breast: R breast mass 2-3oclock, L breast w/ cutaneous changes, retracted CV: s1 s2 rrr +murmur Abd: s nt nd +bs Ext: RUE tenderness, L foot drop cannot flex at ankle CBCD WBC 19.8 K/mm3 (4.0-10.0) H D 08/21/16 07:25 RBC 4.48 M/mm3 (3.60-5.2) 08/21/16 07:25 Hgb 11.7 GM/dL (10.7-15.3) 08/21/16 07:25 Hct 36.6 % (32.4-45.2) 08/21/16 07:25 MCV 81.6 fl (80-96) 08/21/16 07:25 MCHC 32.0 g/dl (32.0-36.0) 08/21/16 07:25 RDW 15.3 % (11.6-15.6) 08/21/16 07:25 Plt Count 343 K/MM3 (134-434) 08/21/16 07:25 MPV 8.5 fl (7.5-11.1) 08/21/16 07:25 CMP Sodium 142 mmol/L (136-145) 08/21/16 07:25 Potassium 4.5 mmol/L (3.5-5.1) 08/21/16 07:25 Chloride 104 mmol/L (98-107) 08/21/16 07:25 Carbon Dioxide 27 mmol/L (21-32) 08/21/16 07:25 Anion Gap 11 (8-16) 08/21/16 07:25 BUN 30 mg/dL (7-18) H 08/21/16 07:25 Creatinine 0.5 mg/dL (0.55-1.02) L 08/21/16 07:25 Creat Clearance w eGFR > 60 (>60) 08/21/16 07:25 Calcium 9.3 mg/dL (8.5-10.1) 08/21/16 07:25 Total Bilirubin 0.4 mg/dL (0.2-1.0) 08/21/16 07:25 AST 46 U/L (15-37) H D 08/21/16 07:25 ALT 26 U/L (12-78) 08/21/16 07:25 Alkaline Phosphatase 343 U/L (45-117) H 08/21/16 07:25 Total Protein 7.4 g/dl (6.4-8.2) 08/21/16 07:25 Albumin 3.2 g/dl (3.4-5.0) L 08/21/16 07:25 Active Medications Generic Name Dose Route Start Last Admin Trade Name Freq PRN Reason Stop Dose Admin Acetaminophen 650 mg 08/12/16 14:57 08/14/16 13:56 Tylenol - PO 650 mg Q4H PRN Administration FEVER OR PAIN Albuterol/Ipratropium 1 amp 08/14/16 11:30 08/21/16 11:26 Duoneb - NEB 1 amp Q6H DONNY Administration Cholecalciferol 500 unit 08/13/16 10:00 08/21/16 09:07 Vitamin D3 - PO 500 unit DAILY DONNY Administration Dexamethasone 4 mg 08/20/16 18:00 08/21/16 11:53 Decadron - PO 4 mg Q6HPO DONNY Administration Docusate Sodium 100 mg 08/12/16 22:00 08/21/16 09:07 Colace - PO 100 mg BID DONNY Administration Enoxaparin Sodium 40 mg 08/15/16 10:00 08/21/16 09:07 Lovenox - SQ 40 mg DAILY DONNY Administration Fentanyl 1 patch 08/16/16 16:45 08/19/16 16:37 Duragesic 12mcg Patch - TD 08/23/16 16:31 1 patch Q72H DONNY Administration Fentanyl 1 patch 08/16/16 17:30 08/19/16 16:37 Duragesic 25mcg Patch - TD 1 patch Q72H DONNY Administration Ferrous Sulfate 325 mg 08/13/16 10:00 08/21/16 09:07 Feosol - PO 325 mg DAILY DONNY Administration Fulvestrant 500 mg 08/24/16 10:00 Faslodex - IM 08/24/16 10:01 ONCE ONE Insulin Aspart 1 vial 08/12/16 16:30 08/21/16 11:53 Novolog Vial Sliding Scale - SQ 4 unit ACHS DONNY Administration Protocol Insulin Detemir 7 units 08/17/16 22:00 08/20/16 22:13 Levemir Vial SQ 7 units HS DONNY Administration Miscellaneous 1 each 08/12/16 15:00 08/19/16 16:42 Duragesic Patch Waste MC 1 each PRN PRN Administration PAIN Miscellaneous 1 each 08/16/16 16:31 Duragesic Patch Waste TD PRN PRN PAIN Ondansetron HCl 4 mg 08/12/16 14:57 Zofran Injection IVPB Q4H PRN NAUSEA Oxycodone HCl 10 mg 08/12/16 15:01 08/21/16 08:29 Roxicodone - PO 10 mg Q4H PRN Administration MODERATE PAIN Pantoprazole Sodium 40 mg 08/15/16 13:15 08/21/16 09:07 Protonix - PO 40 mg DAILY DONNY Administration Polyethylene Glycol 17 gm 08/14/16 11:30 08/21/16 09:08 Miralax (For Daily Use) - PO 17 grams DAILY DONNY Administration Senna 2 tab 08/12/16 22:00 08/20/16 22:13 Senna - PO 2 tab HS DONNY Administration Imaging: - MRI with extensive diffuse bony metastases are seen in the cervicothoracic spine. Extensive pathological bone marrow replacement is seen in C5,C6,C7, C6 retropulsion with cord compression c5-c6 Assessment: 80 year old female with PMHx of metastatic breast cancer, anemia, NIDDM, who presented to the ED with increased diffuse pain admitted with progressive weakness and hypercalcemia. Plan: 1. Metastatic breast cancer with diffuse skeletal and spine mets complicated by cord compression on C5-6 - For RT x1 of 10 yesterday, will resume Tuesday - Continue decadron to q6 - Continue Fentanyl patch - Pt tolerating soft C collar - No neurosurgical intervention - If RUE pain continues, ortho for IM rodding 2. UTI - Completed treatment on 08/16 3. Anemia 2/2 chronic illness - Continue ferrous sulfate 4. DM II - Continue Levemir 7 units HS - BGM, ISS ACHS 5. Electrolytes - Hypernatremia resolved - Hypercalcemia resolved 6. PPX - PT - Lovenox 40mg sq daily CODE STATUS: FULL CODE Visit type - Emergency Visit Emergency Visit: Yes ED Registration Date: 08/12/16 Care time: The patient presented to the Emergency Department on the above date and was hospitalized for further evaluation of their emergent condition. - New Patient This patient is new to me today: No - Critical Care Critical Care patient: No
[2016-08-21] MEDS: INSULIN DETEMIR 100 UNITS/ML MDV SQ SCH (21:30)
[2016-08-21] MEDS: SENNOSIDES 8.6MG TABLET (FP) PO SCH (21:30)
[2016-08-21] MEDS ORDERED: INSULIN (NOVOLOG) ASPART 100 UNITS/ML 10ML VIAL ONE (21:32)
[2016-08-22] MEDS: ALBUTEROL SO4 2.5/IPRATROPIUM 0.5 INH SOL 3 ML VIAL.NEB. NEB SCH ×5 (00:05→23:10)
[2016-08-22] MEDS ORDERED: INSULIN (NOVOLOG) ASPART 100 UNITS/ML 10ML VIAL ONE ×4 (06:01→21:17)
[2016-08-22] MEDS: DEXAMETHASONE 4 MG TABLET (FP) PO SCH ×3 (06:43→17:04)
[2016-08-22] MEDS: INSULIN SLIDING SCALE (NOVOLOG) 1 VIAL SQ SCH ×4 (06:43→21:48)
[2016-08-22 08:36] LABS: BASOPHIL 0.1 % (0-2.0); EOSINOPHIL 0.1 % (0-4.5); MCH 26.2 pg (25.7-33.7); MCHC 32.1 g/dl (32.0-36.0); MEAN CELL VOLUME 81.4 fl (80-96); MEAN PLT VOLUME 8.4 fl (7.5-11.1); NEUTROPHILS 84.4 % (42.8-82.8); PLATELET COUNT 327 K/MM3 (134-434); RDW 15.2 % (11.6-15.6); WHITE BLOOD COUNT 17.7 K/mm3 (4.0-10.0)
[2016-08-22 09:06] LABS: ALBUMIN 3.1 g/dl (3.4-5.0); ANION GAP 6 (8-16); CALCIUM 9.3 mg/dL (8.5-10.1); CO2 33 mmol/L (21-32); GLUCOSE,RANDOM 129 mg/dL (74-106); SGOT/AST 41 U/L (15-37)
[2016-08-22 09:16] LABS: ALK PHOS 362 U/L (45-117); BILIRUBIN,TOTAL 0.5 mg/dL (0.2-1.0); CREATININE 0.5 mg/dL (0.55-1.02); SGPT/ALT 25 U/L (12-78); TOT PROT 7.3 g/dl (6.4-8.2)
[2016-08-22] MEDS: CHOLECALCIFEROL (VITAMIN D3) 400 UNIT TABLET (FP) PO SCH (09:40)
[2016-08-22] MEDS: FERROUS SO4 325 MG TABLET (FP) PO SCH (09:41)
[2016-08-22] MEDS: PANTOPRAZOLE 40 MG TABLET (FP) PO SCH (09:41)
[2016-08-22] MEDS: DOCUSATE SODIUM 100 MG CAPSULE (FP) PO SCH ×3 (09:41→21:51)
[2016-08-22] MEDS: ENOXAPARIN NA (PORCINE) 40 MG/0.4 ML DISP.SYRIN SQ SCH (09:41)
[2016-08-22] MEDS: POLYETHYLENE GLYCOL 3350 119 GM BTL PO SCH ×2 (09:44→09:46)
--- NOTE | 2016-08-22 10:32 | PN ---
Progress Note (short form) - Note Progress Note: NEUROSURGERY Stable R shoulder and B neck pain Using soft collar periodically PE: AF, VSS Sitting up in bed NEURO- A/A/Ox4 CN- intact; Motor- 5/5 B UE except R triceps, wrist extensors and hand; B Prox LE 4/5; L foot DF 0 (chronic x 6 years per pt); Sensation- intact LT; DTR- hyporeflexia, no LTS C spine MRI: metastatic C5,6,7 involvement with C6 pathological burst fracture and mild kyphosis; mild-moderate cord impingement, no edema T spine MRI- extensive dextroscoliosis, no cord impingement LS spine MRI- Extensive Lumbar and sacral vertebral involvement, L L4 vertebral involvement with extension into L L4 pedicle and foramen, S2 pathological fx Bone scan- multifocal uptakes of skeleton Metastatic breast CA with pathological C6 fracture and extensive LS spine involvement LS spine disease too extensive for surgical tx- MRI findings d/w pt Pt understands the tx options and pros and cons of tx approaches Cont palliative C spine and LS spine XRT with shoulder field per rad onc Will sign off Reconsult PRN
[2016-08-22] MEDS ORDERED: BISACODYL 5 MG TABLET.DR (FP) PO ONE (11:05)
--- NOTE | 2016-08-22 11:37 | PN ---
Physical Exam: SUBJECTIVE: Patient seen and examined. She has no had a BM in ~4 days, she says she needs more oil in her diet. She c/o RUE weakness. OBJECTIVE: Vital Signs Period Temp Pulse Resp BP Sys/Cash Pulse Ox Last 24 Hr 97.7 F-98.9 F 71-104 18-22 115-160/64-79 96-97 PE Neuro: alert, awake, cn 2-12intact Pulm: basilar crackles R>L +NC Breast: R breast mass 2-3oclock, L breast w/ cutaneous changes, retracted CV: s1 s2 rrr +murmur Abd: s nt nd +bs Ext: RUE tenderness/weakness, L foot drop cannot flex at ankle, b/l LE weakness CBCD WBC 17.7 K/mm3 (4.0-10.0) H 08/22/16 07:00 RBC 4.62 M/mm3 (3.60-5.2) 08/22/16 07:00 Hgb 12.1 GM/dL (10.7-15.3) 08/22/16 07:00 Hct 37.6 % (32.4-45.2) 08/22/16 07:00 MCV 81.4 fl (80-96) 08/22/16 07:00 MCHC 32.1 g/dl (32.0-36.0) 08/22/16 07:00 RDW 15.2 % (11.6-15.6) 08/22/16 07:00 Plt Count 327 K/MM3 (134-434) 08/22/16 07:00 MPV 8.4 fl (7.5-11.1) 08/22/16 07:00 CMP Sodium 139 mmol/L (136-145) 08/22/16 07:00 Potassium 4.4 mmol/L (3.5-5.1) 08/22/16 07:00 Chloride 100 mmol/L (98-107) 08/22/16 07:00 Carbon Dioxide 33 mmol/L (21-32) H D 08/22/16 07:00 Anion Gap 6 (8-16) L 08/22/16 07:00 BUN 28 mg/dL (7-18) H 08/22/16 07:00 Creatinine 0.5 mg/dL (0.55-1.02) L 08/22/16 07:00 Creat Clearance w eGFR > 60 (>60) 08/22/16 07:00 Calcium 9.3 mg/dL (8.5-10.1) 08/22/16 07:00 Total Bilirubin 0.5 mg/dL (0.2-1.0) D 08/22/16 07:00 AST 41 U/L (15-37) H 08/22/16 07:00 ALT 25 U/L (12-78) 08/22/16 07:00 Alkaline Phosphatase 362 U/L (45-117) H 08/22/16 07:00 Total Protein 7.3 g/dl (6.4-8.2) 08/22/16 07:00 Albumin 3.1 g/dl (3.4-5.0) L 08/22/16 07:00 Active Medications Generic Name Dose Route Start Last Admin Trade Name Freq PRN Reason Stop Dose Admin Acetaminophen 650 mg 08/12/16 14:57 08/14/16 13:56 Tylenol - PO 650 mg Q4H PRN Administration FEVER OR PAIN Albuterol/Ipratropium 1 amp 08/14/16 11:30 08/22/16 10:54 Duoneb - NEB 1 amp Q6H DONNY Administration Cholecalciferol 500 unit 08/13/16 10:00 08/22/16 09:40 Vitamin D3 - PO 500 unit DAILY DONNY Administration Dexamethasone 4 mg 08/20/16 18:00 08/22/16 06:43 Decadron - PO 4 mg Q6HPO DONNY Administration Docusate Sodium 100 mg 08/12/16 22:00 08/22/16 09:45 Colace - PO Not Given BID DONNY Fentanyl 1 patch 08/16/16 16:45 08/19/16 16:37 Duragesic 12mcg Patch - TD 08/23/16 16:31 1 patch Q72H DONNY Administration Fentanyl 1 patch 08/16/16 17:30 08/19/16 16:37 Duragesic 25mcg Patch - TD 1 patch Q72H DONNY Administration Ferrous Sulfate 325 mg 08/13/16 10:00 08/22/16 09:41 Feosol - PO 325 mg DAILY DONNY Administration Fulvestrant 500 mg 08/24/16 10:00 Faslodex - IM 08/24/16 10:01 ONCE ONE Insulin Aspart 1 vial 08/12/16 16:30 08/22/16 06:43 Novolog Vial Sliding Scale - SQ Not Given ACHS [facility] Protocol Insulin Detemir 7 units 08/17/16 22:00 08/21/16 21:30 Levemir Vial SQ 7 units HS DONNY Administration Miscellaneous 1 each 08/12/16 15:00 08/19/16 16:42 Duragesic Patch Waste MC 1 each PRN PRN Administration PAIN Miscellaneous 1 each 08/16/16 16:31 Duragesic Patch Waste TD PRN PRN PAIN Ondansetron HCl 4 mg 08/12/16 14:57 Zofran Injection IVPB Q4H PRN NAUSEA Oxycodone HCl 10 mg 08/12/16 15:01 08/21/16 21:30 Roxicodone - PO 10 mg Q4H PRN Administration MODERATE PAIN Pantoprazole Sodium 40 mg 08/15/16 13:15 08/22/16 09:41 Protonix - PO 40 mg DAILY DONNY Administration Polyethylene Glycol 17 gm 08/14/16 11:30 08/22/16 09:46 Miralax (For Daily Use) - PO Not Given DAILY DONNY Senna 2 tab 08/12/16 22:00 08/21/16 21:30 Senna - PO 2 tab HS DONNY Administration Imaging: - MRI with extensive diffuse bony metastases are seen in the cervicothoracic spine. Extensive pathological bone marrow replacement is seen in C5,C6,C7, C6 retropulsion with cord compression c5-c6 Assessment: 80 year old female with PMHx of metastatic breast cancer, anemia, NIDDM, who presented to the ED with increased diffuse pain admitted with progressive weakness and hypercalcemia. Plan: 1. Metastatic breast cancer with diffuse skeletal and spine mets complicated by cord compression on C5-6 - For RT x1 of 10 yesterday, will resume Tuesday - Continue decadron to q6 - Continue Fentanyl patch - Pt tolerating soft C collar - No neurosurgical intervention - If RUE pain continues, ortho for IM rodding - Continue incentive spirometry 2. UTI - Completed treatment on 08/16 3. Anemia 2/2 chronic illness - Continue ferrous sulfate 4. DM II - Continue Levemir 7 units HS - BGM, ISS ACHS 5. Electrolytes - Hypernatremia resolved - Hypercalcemia resolved 6. PPX - PT - Lovenox 40mg sq daily CODE STATUS: FULL CODE Visit type Visit type - Emergency Visit Emergency Visit: Yes ED Registration Date: 08/12/16 Care time: The patient presented to the Emergency Department on the above date and was hospitalized for further evaluation of their emergent condition. - New Patient This patient is new to me today: No - Critical Care Critical Care patient: No
--- NOTE | 2016-08-22 12:22 | PN ---
Progress Note (short form) - Note Progress Note: Patient without complaints this morning. MRI overnight. Meds reviewed. Current Medications Generic Name Dose Route Start Last Admin Trade Name Freq PRN Reason Stop Dose Admin Acetaminophen 650 mg 08/12/16 14:57 08/14/16 13:56 Tylenol - PO 650 mg Q4H PRN Administration FEVER OR PAIN Albuterol/Ipratropium 1 amp 08/14/16 11:30 08/22/16 10:54 Duoneb - NEB 1 amp Q6H DONNY Administration Cholecalciferol 500 unit 08/13/16 10:00 08/22/16 09:40 Vitamin D3 - PO 500 unit DAILY DONNY Administration Dexamethasone 4 mg 08/20/16 18:00 08/22/16 06:43 Decadron - PO 4 mg Q6HPO DONNY Administration Docusate Sodium 100 mg 08/12/16 22:00 08/22/16 09:45 Colace - PO Not Given BID DONNY Fentanyl 1 patch 08/16/16 16:45 08/19/16 16:37 Duragesic 12mcg Patch - TD 08/23/16 16:31 1 patch Q72H DONNY Administration Fentanyl 1 patch 08/16/16 17:30 08/19/16 16:37 Duragesic 25mcg Patch - TD 1 patch Q72H DONNY Administration Ferrous Sulfate 325 mg 08/13/16 10:00 08/22/16 09:41 Feosol - PO 325 mg DAILY DONNY Administration Fulvestrant 500 mg 08/24/16 10:00 Faslodex - IM 08/24/16 10:01 ONCE ONE Insulin Aspart 1 vial 08/12/16 16:30 08/22/16 11:53 Novolog Vial Sliding Scale - SQ Not Given ACHS DONNY Protocol Insulin Aspart 14 units 08/22/16 11:51 Novolog Vial SQ 08/22/16 11:52 HS ONE Protocol Insulin Detemir 7 units 08/17/16 22:00 08/21/16 21:30 Levemir Vial SQ 7 units HS DONNY Administration Miscellaneous 1 each 08/12/16 15:00 08/19/16 16:42 Duragesic Patch Waste MC 1 each PRN PRN Administration PAIN Miscellaneous 1 each 08/16/16 16:31 Duragesic Patch Waste TD PRN PRN PAIN Ondansetron HCl 4 mg 08/12/16 14:57 Zofran Injection IVPB Q4H PRN NAUSEA Oxycodone HCl 10 mg 08/12/16 15:01 08/21/16 21:30 Roxicodone - PO 10 mg Q4H PRN Administration MODERATE PAIN Pantoprazole Sodium 40 mg 08/15/16 13:15 08/22/16 09:41 Protonix - PO 40 mg DAILY DONNY Administration Polyethylene Glycol 17 gm 08/14/16 11:30 08/22/16 09:46 Miralax (For Daily Use) - PO Not Given DAILY DONNY Senna 2 tab 08/12/16 22:00 08/21/16 21:30 Senna - PO 2 tab HS DONNY Administration On exam: Last Vital Signs Temp Pulse Resp BP Pulse Ox 97.7 F 88 22 136/70 97 08/22/16 05:00 08/22/16 10:53 08/22/16 05:00 08/22/16 05:00 08/22/16 10:53 Lying comfortably in bed. Well hydrated, no pallor or icterus. No dependant edema Chest: good AE BL, clear. CVS: S1, S2, no gallop or murmur. Abdomen: soft non-tender, no masses or organomegaly. Neuro: Alert and oriented. CBC, BMP 08/22/16 07:00 08/22/16 07:00 Assesment: Metastatic breast CT with extensive skeletal metastases. Pathological C6 fracture and extensive LS spine involvement. Appreciate input neurosurgery. Not a candidate for surgery. RTX initiated yesterday, will continue on Tuesday. Hb satisfactory, with low index of suspicion for iron deficiency - no indication for oral iron , which can exacerbate her constipation. Systemic therapy to be considered
[2016-08-22] MEDS ORDERED: INSULIN (NOVOLOG) ASPART 100 UNITS/ML 10ML VIAL SQ ONE (12:45)
[2016-08-22] MEDS: fentaNYL 25mcg/hr PATCH.TD72 TD SCH (16:45)
[2016-08-22] MEDS: fentaNYL 12mcg/hr PATCH.TD72 TD SCH (16:45)
[2016-08-22] MEDS: FENTANYL PATCH WASTE MC PRN (16:51)
[2016-08-22] MEDS: INSULIN DETEMIR 100 UNITS/ML MDV SQ SCH (21:47)
[2016-08-22] MEDS: SENNOSIDES 8.6MG TABLET (FP) PO SCH (21:50)
[2016-08-23] MEDS: DEXAMETHASONE 4 MG TABLET (FP) PO SCH ×4 (00:07→17:18)
[2016-08-23 06:14] LABS: BASOPHIL 0.1 % (0-2.0); EOSINOPHIL 0.1 % (0-4.5); MCH 25.5 pg (25.7-33.7); MCHC 31.7 g/dl (32.0-36.0); MEAN CELL VOLUME 80.6 fl (80-96); MEAN PLT VOLUME 8.4 fl (7.5-11.1); NEUTROPHILS 84.5 % (42.8-82.8); PLATELET COUNT 305 K/MM3 (134-434); RDW 15.2 % (11.6-15.6); WHITE BLOOD COUNT 13.6 K/mm3 (4.0-10.0)
[2016-08-23] MEDS: INSULIN SLIDING SCALE (NOVOLOG) 1 VIAL SQ SCH ×4 (06:25→21:26)
[2016-08-23] MEDS: ALBUTEROL SO4 2.5/IPRATROPIUM 0.5 INH SOL 3 ML VIAL.NEB. NEB SCH ×4 (06:28→23:25)
[2016-08-23 07:12] LABS: CALCIUM 8.6 mg/dL (8.5-10.1)
[2016-08-23 07:16] LABS: CREATININE 0.4 mg/dL (0.55-1.02)
[2016-08-23] MEDS: fentaNYL 50mcg/hr PATCH.TD72 TD SCH (08:53)
[2016-08-23] MEDS: morphine CARPU-JECT 4 MG/1 ML DISP.SYRIN IVPUSH PRN (08:53)
[2016-08-23] MEDS: FENTANYL PATCH WASTE TD PRN (09:00)
--- NOTE | 2016-08-23 10:01 | PN ---
Physical Exam: SUBJECTIVE: Patient seen and examined. She was sitting up, eating breakfast, in no acute distress. States her pain on right upper arm and neck pain is still uncontrolled 9. For Palliative RT #2 today. OBJECTIVE: GENERAL: The patient is awake, alert, and fully oriented, has uncontrolled pain on right upper arm HEAD: Normal with no signs of trauma. EYES: PERRL, extraocular movements intact, sclera anicteric, conjunctiva clear. No ptosis. ENT: Ears normal, nares patent NECK: Trachea midline, full range of motion, supple. LUNGS: Breath sounds equal, clear/diminished to auscultation bilaterally, HEART: Regular rate and rhythm ABDOMEN: Soft, nontender, nondistended, normoactive bowel sounds, no guarding EXTREMITIES: 2+ pulses, warm, well-perfused, no edema. NEUROLOGICAL: Normal speech, bed bound secondary to LE weakness PSYCH: Normal mood, normal affect. SKIN: Warm, dry, normal turgor, no rashes or lesions noted Vital Signs Period Temp Pulse Resp BP Sys/Cash Pulse Ox Last 24 Hr 98.0 F-98.4 F 70-95 16-20 110-139/70-76 97-97 Laboratory Results - last 24 hr 08/22/16 08/22/16 08/23/16 16:44 21:00 05:45 WBC 13.6 H RBC 4.20 Hgb 10.7 D Hct 33.9 MCV 80.6 MCHC 31.7 L RDW 15.2 Plt Count 305 MPV 8.4 Neutrophils % 84.5 H Lymphocytes % 7.4 L Monocytes % 7.9 Eosinophils % 0.1 Basophils % 0.1 Sodium Potassium Chloride Carbon Dioxide Anion Gap BUN Creatinine POC Glucometer 133 258 Random Glucose Calcium 08/23/16 08/23/16 05:45 06:14 WBC RBC Hgb Hct MCV MCHC RDW Plt Count MPV Neutrophils % Lymphocytes % Monocytes % Eosinophils % Basophils % Sodium 139 Potassium 4.2 Chloride 102 Carbon Dioxide 33 H Anion Gap 4 L BUN 29 H Creatinine 0.4 L POC Glucometer 109 Random Glucose 106 Calcium 8.6 Active Medications Generic Name Dose Route Start Last Admin Trade Name Freq PRN Reason Stop Dose Admin Acetaminophen 650 mg 08/12/16 14:57 08/14/16 13:56 Tylenol - PO 650 mg Q4H PRN Administration FEVER OR PAIN Albuterol/Ipratropium 1 amp 08/14/16 11:30 08/23/16 06:28 Duoneb - NEB 1 amp Q6H DONNY Administration Cholecalciferol 500 unit 08/13/16 10:00 08/22/16 09:40 Vitamin D3 - PO 500 unit DAILY DONNY Administration Dexamethasone 4 mg 08/20/16 18:00 08/23/16 06:25 Decadron - PO 4 mg Q6HPO DONNY Administration Docusate Sodium 100 mg 08/23/16 14:00 Colace - PO TID DONNY Enoxaparin Sodium 40 mg 08/23/16 10:00 Lovenox - SQ DAILY DONNY Fentanyl 1 patch 08/23/16 08:30 08/23/16 08:53 Duragesic 50mcg Patch - TD 08/30/16 08:27 1 patch Q72H DONNY Administration Fulvestrant 500 mg 08/24/16 10:00 Faslodex - IM 08/24/16 10:01 ONCE ONE Insulin Aspart 1 vial 08/12/16 16:30 08/23/16 06:25 Novolog Vial Sliding Scale - SQ Not Given ACHS [facility] Protocol Insulin Detemir 7 units 08/17/16 22:00 08/22/16 21:47 Levemir Vial SQ 7 units HS DONNY Administration Miscellaneous 1 each 08/23/16 08:27 08/23/16 09:00 Duragesic Patch Waste TD 1 each PRN PRN Administration PAIN Morphine Sulfate 4 mg 08/23/16 08:28 08/23/16 08:53 Morphine Injection - IVPUSH 4 mg Q4H PRN Administration PAIN Ondansetron HCl 4 mg 08/12/16 14:57 Zofran Injection IVPB Q4H PRN NAUSEA Pantoprazole Sodium 40 mg 08/15/16 13:15 08/22/16 09:41 Protonix - PO 40 mg DAILY DONNY Administration Polyethylene Glycol 17 gm 08/14/16 11:30 08/22/16 09:46 Miralax (For Daily Use) - PO Not Given DAILY DONNY Senna 2 tab 08/12/16 22:00 08/22/16 21:50 Senna - PO 2 tab HS DONNY Administration ASSESSMENT/PLAN: Patient is a 80 year old female with a significant past medical history of breast cancer with mets to the spine, right shoulder and femur. She also has a history of anemia, diabetes mellitus, weakness and hypercalcemia. She presented to the ED on 08/12/2016 with complaints of generalized weakness, shoulder pain, pelvic pain, femur pain for the past few weeks. Her oncologist is Dr. Sampson whom she sees for metastatic breast cancer. She also states she has generalized weakness on bilateral legs that worsens with ambulation. On admission she was found to have hypercalcemia, hypernatremia and hyperglycemia. Oncology: Metastatic Breat Cancer with extensive skeletal mets with pathological C6 fracture and ext L5 spine involvement - chronic Assessment/Plan: Lumbar spine MRI on 08/20/2016 shows diffused bony mets, min to mild ventral cortical buckling of upper sacrum at the S2 level w/non displaced pathological fracture Cervical MRI 08/17/2016 r/o cord compression shows ext diffuse bony mets in cervicothoracic spine - extensive path bone marrow replacement is seen in C5, C6 , C7 vertebral bodies. Cord comp. at level of C5-C6. Thoracic spine 08/27/2016 shows extensive dextroscoliosis of the thoracic spine - no cord compression She also has had a pathological fracture of the right femur s/p pinning and RT Her pain is currently not controlled. Will increase the Fentanyl to 50mcgs and add Morphine IV for breakthrough pain. She should get a dose of IV Morphine prior to RT On Decadron 4mg PO Q6 Currently getting Palliative RT Day #2 Both Oncology and Ortho are following Endocrine: Diabetes Mellitus - chronic Assessment/Plan: On Novolog and Levemir 7units @ hs Monitor glucs Pulmonary: Dyspnea - acute Assessment/Plan: Dyspnea on exertion. On 2-3 liters of nasal cannula Incentive spirometer F.E.N. Fluids: Tolerating PO, RD following Electrolytes: Hypercalcemia resolved (corrected Ca 9.6) Hypernatremia resolved Hyperglycemia resolved Nutrition: Diabetic diet, Glucerna with meals Prophylaxis: DVT: Lovenox 40mg daily GI: Miralax, Senna, Colace, Protonix 40mg daily Disposition: Requires inpatient hospitalization. Full code. Visit type - Emergency Visit Emergency Visit: Yes ED Registration Date: 08/12/16 Care time: The patient presented to the Emergency Department on the above date and was hospitalized for further evaluation of their emergent condition. - New Patient This patient is new to me today: No - Critical Care Critical Care patient: No - Discharge Referral Referred to [facility] No
[2016-08-23] MEDS: CHOLECALCIFEROL (VITAMIN D3) 400 UNIT TABLET (FP) PO SCH (11:24)
[2016-08-23] MEDS: ENOXAPARIN NA (PORCINE) 40 MG/0.4 ML DISP.SYRIN SQ SCH (11:24)
[2016-08-23] MEDS: PANTOPRAZOLE 40 MG TABLET (FP) PO SCH (11:24)
[2016-08-23] MEDS: POLYETHYLENE GLYCOL 3350 119 GM BTL PO SCH (11:28)
[2016-08-23] MEDS ORDERED: INSULIN (NOVOLOG) ASPART 100 UNITS/ML 10ML VIAL ONE ×3 (11:33→21:27)
[2016-08-23] MEDS: DOCUSATE SODIUM 100 MG CAPSULE (FP) PO SCH ×3 (14:53→21:30)
--- NOTE | 2016-08-23 15:09 | PN ---
Progress Note (short form) - Note Progress Note: Radiation Oncology Still c/o right shoulder/neck pain. Would expect palliative effect after at least 4-5 fxs. Had 2nd fx RT to C5-6 and right humerus today. Plan 8 more. MRI L-S spine shows L4 epidural extension w/thecal sac impingement, S2 nondisplaced fracture. Plan RT to LS spine after current mcclain. Follow CBC as multiple RT mcclain increase risk of cytopenias. Cont soft collar, neuro monitoring, PT as tolerated. If pain worsens, consider x-ray C-spine to r/o progressive fracture during RT.
--- NOTE | 2016-08-23 18:15 | PN ---
Progress Note (short form) - Note Progress Note: Patient seen and examined . No specific complaints Last Vital Signs Temp Pulse Resp BP Pulse Ox 98.3 F 84 20 131/65 99 08/23/16 14:52 08/23/16 14:52 08/23/16 14:52 08/23/16 14:52 08/23/16 11:20 HEENT: MALI, EOM Intact Oropharynx: No thrush, No mucositis Cor: RSR, No murmurs, No gallops Lungs: diminished breasth sounds Abd: Soft, Normal bowel sounds, No organomegaly Ext:No significant edema Skin: No rashes, Integument intact Abnormal Lab Results 08/23/16 08/23/16 05:45 05:45 WBC 13.6 H MCHC 31.7 L Neutrophils % 84.5 H Lymphocytes % 7.4 L Carbon Dioxide 33 H Anion Gap 4 L BUN 29 H Creatinine 0.4 L Current Medications Acetaminophen (Tylenol -) 650 mg PO Q4H PRN PRN Reason: FEVER OR PAIN Last Admin: 08/14/16 13:56 Dose: 650 mg Albuterol/Ipratropium (Duoneb -) 1 amp NEB Q6H [facility] Last Admin: 08/23/16 17:49 Dose: Not Given Cholecalciferol (Vitamin D3 -) 500 unit PO DAILY [facility] Last Admin: 08/23/16 11:24 Dose: 500 unit Dexamethasone (Decadron -) 4 mg PO Q6HPO [facility] Last Admin: 08/23/16 17:18 Dose: 4 mg Docusate Sodium (Colace -) 100 mg PO TID [facility] Last Admin: 08/23/16 16:21 Dose: 100 mg Enoxaparin Sodium (Lovenox -) 40 mg SQ DAILY [facility] Last Admin: 08/23/16 11:24 Dose: 40 mg Fentanyl (Duragesic 50mcg Patch -) 1 patch TD Q72H [facility] Stop: 08/30/16 08:27 Last Admin: 08/23/16 08:53 Dose: 1 patch Fulvestrant (Faslodex -) 500 mg IM ONCE ONE Stop: 08/24/16 10:01 Insulin Aspart (Novolog Vial Sliding Scale -) 1 vial SQ ACHS [facility] PRN Reason: Protocol Last Admin: 08/23/16 16:21 Dose: 8 unit Insulin Detemir (Levemir Vial) 7 units SQ HS [facility] Last Admin: 08/22/16 21:47 Dose: 7 units Miscellaneous (Duragesic Patch Waste) 1 each TD PRN PRN PRN Reason: PAIN Last Admin: 08/23/16 09:00 Dose: 1 each Morphine Sulfate (Morphine Injection -) 4 mg IVPUSH Q4H PRN PRN Reason: PAIN Last Admin: 08/23/16 08:53 Dose: 4 mg Ondansetron HCl (Zofran Injection) 4 mg IVPB Q4H PRN PRN Reason: NAUSEA Pantoprazole Sodium (Protonix -) 40 mg PO DAILY [facility] Last Admin: 08/23/16 11:24 Dose: 40 mg Polyethylene Glycol (Miralax (For Daily Use) -) 17 gm PO DAILY [facility] Last Admin: 08/23/16 11:28 Dose: Not Given Senna (Senna -) 2 tab PO HS [facility] Last Admin: 08/22/16 21:50 Dose: 2 tab Impression: Metastatic breast ca with extensive skeletal mets Spine CT with diffuse lytic mets, destruction of C-6 with retropulsion and L4 met with minimal extension into spine and neural impingement Hypercalcemia-- received zometa, begun on steroids, and receiving mild fluids- Hypernatremia- to give hypotonic fluid with 1/2 NS to get added hypocalcemic effect of Na+ Hyperglycemia- on steroids and insulin instituted Anemia-secondary to chronic disease Not a surgical candidate Is getting RT
[2016-08-23] MEDS: INSULIN DETEMIR 100 UNITS/ML MDV SQ SCH (21:25)
[2016-08-23] MEDS: SENNOSIDES 8.6MG TABLET (FP) PO SCH (21:29)
[2016-08-23] MEDS ORDERED: MAGNESIUM HYDROX 2400MG/30ML ORAL SUSPENSION 30 ML CUP PO ONE (22:37)
[2016-08-23] MEDS ORDERED: POLYETHYLENE GLYCOL 3350 119 GM BTL PO ONE (22:37)
[2016-08-24] MEDS: DEXAMETHASONE 4 MG TABLET (FP) PO SCH ×4 (00:05→18:05)
[2016-08-24] MEDS: INSULIN SLIDING SCALE (NOVOLOG) 1 VIAL SQ SCH ×4 (06:23→22:40)
[2016-08-24] MEDS: DOCUSATE SODIUM 100 MG CAPSULE (FP) PO SCH ×3 (06:26→22:39)
[2016-08-24] MEDS: ALBUTEROL SO4 2.5/IPRATROPIUM 0.5 INH SOL 3 ML VIAL.NEB. NEB SCH ×4 (06:36→22:52)
[2016-08-24 07:53] LABS: BASOPHIL 0.1 % (0-2.0); EOSINOPHIL 0.1 % (0-4.5); MCH 26.5 pg (25.7-33.7); MCHC 32.4 g/dl (32.0-36.0); MEAN CELL VOLUME 81.8 fl (80-96); MEAN PLT VOLUME 8.2 fl (7.5-11.1); NEUTROPHILS 83.2 % (42.8-82.8); PLATELET COUNT 288 K/MM3 (134-434); RDW 15.5 % (11.6-15.6); WHITE BLOOD COUNT 13.3 K/mm3 (4.0-10.0)
[2016-08-24 08:13] LABS: ALBUMIN 2.9 g/dl (3.4-5.0); ANION GAP 2 (8-16); CO2 34 mmol/L (21-32); SGOT/AST 48 U/L (15-37); SGPT/ALT 22 U/L (12-78)
[2016-08-24 08:19] LABS: ALK PHOS 348 U/L (45-117); BILIRUBIN,TOTAL 0.4 mg/dL (0.2-1.0); CREATININE 0.5 mg/dL (0.55-1.02); GLUCOSE,RANDOM 69 mg/dL (74-106); TOT PROT 6.6 g/dl (6.4-8.2)
--- NOTE | 2016-08-24 09:47 | PN ---
Physical Exam: SUBJECTIVE: Patient seen and examined. She states she feels better with the increased Fentanyl patch (now at 50mcgs), states she is using the breakthrough morphine pushes less. Assured her that we will continue to manage her pain and can titrate the Fentanyl patch to manage her pain. Morphine IV pushes prior to RT seem to be helping her also. Also states she is still constipated. OBJECTIVE: Vital Signs Period Temp Pulse Resp BP Sys/Cash Pulse Ox Last 24 Hr 97.7 F-98.3 F 70-84 18-20 131-147/65-78 99-99 GENERAL: The patient is awake, alert, and fully oriented, denies pain HEAD: Normal with no signs of trauma. EYES: PERRL, extraocular movements intact, sclera anicteric, conjunctiva clear. No ptosis. ENT: Ears normal, nares patent NECK: Trachea midline, full range of motion, supple. LUNGS: Breath sounds equal, clear/diminished to auscultation bilaterally, HEART: Regular rate and rhythm ABDOMEN: Soft, nontender, nondistended, normoactive bowel sounds, no guarding, passing gas EXTREMITIES: 2+ pulses, warm, well-perfused, no edema. NEUROLOGICAL: Normal speech, bed bound secondary to LE weakness PSYCH: Normal mood, normal affect. SKIN: Warm, dry, normal turgor, no rashes or lesions noted Laboratory Results - last 24 hr 08/23/16 08/23/16 08/23/16 11:28 16:18 21:20 WBC RBC Hgb Hct MCV MCHC RDW Plt Count MPV Neutrophils % Lymphocytes % Monocytes % Eosinophils % Basophils % Sodium Potassium Chloride Carbon Dioxide Anion Gap BUN Creatinine Creat Clearance w eGFR POC Glucometer 193 323 213 Random Glucose Calcium Total Bilirubin AST ALT Alkaline Phosphatase Total Protein Albumin 08/24/16 08/24/16 08/24/16 06:22 07:00 07:00 WBC 13.3 H RBC 4.40 Hgb 11.7 Hct 36.0 MCV 81.8 MCHC 32.4 RDW 15.5 Plt Count 288 MPV 8.2 Neutrophils % 83.2 H Lymphocytes % 8.4 Monocytes % 8.2 Eosinophils % 0.1 Basophils % 0.1 Sodium 138 Potassium 4.2 Chloride 102 Carbon Dioxide 34 H Anion Gap 2 L BUN 26 H Creatinine 0.5 L D Creat Clearance w eGFR > 60 POC Glucometer 74 Random Glucose 69 L D Calcium 9.0 Total Bilirubin 0.4 AST 48 H ALT 22 Alkaline Phosphatase 348 H Total Protein 6.6 Albumin 2.9 L Active Medications Generic Name Dose Route Start Last Admin Trade Name Mahadq PRN Reason Stop Dose Admin Acetaminophen 650 mg 08/12/16 14:57 08/14/16 13:56 Tylenol - PO 650 mg Q4H PRN Administration FEVER OR PAIN Albuterol/Ipratropium 1 amp 08/14/16 11:30 08/24/16 06:36 Duoneb - NEB 1 amp Q6H DONNY Administration Cholecalciferol 500 unit 08/13/16 10:00 08/23/16 11:24 Vitamin D3 - PO 500 unit DAILY DONNY Administration Dexamethasone 4 mg 08/20/16 18:00 08/24/16 06:25 Decadron - PO 4 mg Q6HPO DONNY Administration Docusate Sodium 100 mg 08/23/16 14:00 08/24/16 06:26 Colace - PO 100 mg TID DONNY Administration Enoxaparin Sodium 40 mg 08/23/16 10:00 08/23/16 11:24 Lovenox - SQ 40 mg DAILY [facility] Administration Fentanyl 1 patch 08/23/16 08:30 08/23/16 08:53 Duragesic 50mcg Patch - TD 08/30/16 08:27 1 patch Q72H DONNY Administration Fulvestrant 500 mg 08/24/16 10:00 Faslodex - IM 08/24/16 10:01 ONCE ONE Insulin Aspart 1 vial 08/12/16 16:30 08/24/16 06:23 Novolog Vial Sliding Scale - SQ Not Given [facility] Protocol Insulin Detemir 7 units 08/17/16 22:00 08/23/16 21:25 Levemir Vial SQ 7 units HS DONNY Administration Miscellaneous 1 each 08/23/16 08:27 08/23/16 09:00 Duragesic Patch Waste TD 1 each PRN PRN Administration PAIN Morphine Sulfate 4 mg 08/23/16 08:28 08/23/16 08:53 Morphine Injection - IVPUSH 4 mg Q4H PRN Administration PAIN Ondansetron HCl 4 mg 08/12/16 14:57 Zofran Injection IVPB Q4H PRN NAUSEA Pantoprazole Sodium 40 mg 08/15/16 13:15 08/23/16 11:24 Protonix - PO 40 mg DAILY DONNY Administration Polyethylene Glycol 17 gm 08/14/16 11:30 08/23/16 11:28 Miralax (For Daily Use) - PO Not Given DAILY DONNY Senna 2 tab 08/12/16 22:00 08/23/16 21:29 Senna - PO 2 tab HS DONNY Administration ASSESSMENT/PLAN: Patient is a 80 year old female with a significant past medical history of breast cancer with mets to the spine, right shoulder and femur. She also has a history of anemia, diabetes mellitus, weakness and hypercalcemia. She presented to the ED on 08/12/2016 with complaints of generalized weakness, shoulder pain, pelvic pain, femur pain for the past few weeks. Her oncologist is Dr. Sampson whom she sees for metastatic breast cancer. She also states she has generalized weakness on bilateral legs that worsens with ambulation. On admission she was found to have hypercalcemia, hypernatremia and hyperglycemia. Oncology: Metastatic Breat Cancer with extensive skeletal mets with pathological C6 fracture and ext L5 spine involvement - chronic Assessment/Plan: Lumbar spine MRI on 08/20/2016 shows diffused bony mets, min to mild ventral cortical buckling of upper sacrum at the S2 level w/non displaced pathological fracture Cervical MRI 08/17/2016 r/o cord compression shows ext diffuse bony mets in cervicothoracic spine - extensive path bone marrow replacement is seen in C5, C6 , C7 vertebral bodies. Cord comp. at level of C5-C6. Thoracic spine 08/27/2016 shows extensive dextroscoliosis of the thoracic spine - no cord compression She also has had a pathological fracture of the right femur s/p pinning and RT On Decadron 4mg PO Q6 Currently getting Palliative RT Day #3 today Both Oncology and Ortho are following Pain Management Assessment/Plan: Pain currently controlled on Fentanyl 50mcgs. Morphine IV for breakthrough pain, she should be pre-medicated with Morphine 4mg prior to RT Endocrine: Diabetes Mellitus - chronic Assessment/Plan: On Novolog and Levemir 7units @ hs Monitor glucs Pulmonary: Dyspnea - acute Assessment/Plan: Dyspnea on exertion. On 2-3 liters of nasal cannula prm Incentive spirometer, duonebs F.E.N. Fluids: Tolerating PO, RD following Electrolytes: Hypercalcemia resolved (corrected Ca 10.2) Hypernatremia resolved Hyperglycemia resolved Nutrition: Diabetic diet, Glucerna with meals Prophylaxis: DVT: Lovenox 40mg daily GI: Miralax, Senna, Colace, Dulcolax x 1 and PRN Protonix 40mg daily Visit type - Emergency Visit Emergency Visit: Yes ED Registration Date: 08/12/16 Care time: The patient presented to the Emergency Department on the above date and was hospitalized for further evaluation of their emergent condition. - New Patient This patient is new to me today: No - Critical Care Critical Care patient: No - Discharge Referral Referred to [facility] No
[2016-08-24] MEDS ORDERED: BISACODYL 10 MG SUPP.RECT RC PRN (10:00)
[2016-08-24] MEDS: morphine CARPU-JECT 4 MG/1 ML DISP.SYRIN IVPUSH PRN (10:13)
[2016-08-24] MEDS ORDERED: PT OWN MED DRAWER 7, Y5N ONE (10:45)
[2016-08-24] MEDS: ENOXAPARIN NA (PORCINE) 40 MG/0.4 ML DISP.SYRIN SQ SCH (11:22)
[2016-08-24] MEDS: PANTOPRAZOLE 40 MG TABLET (FP) PO SCH (11:22)
[2016-08-24] MEDS: CHOLECALCIFEROL (VITAMIN D3) 400 UNIT TABLET (FP) PO SCH (11:22)
[2016-08-24] MEDS: POLYETHYLENE GLYCOL 3350 119 GM BTL PO SCH (11:24)
[2016-08-24] MEDS ORDERED: BISACODYL 10 MG SUPP.RECT RC ONE (12:30)
--- NOTE | 2016-08-24 14:07 | PN ---
Progress Note (short form) - Note Progress Note: Radiation Oncology Tolerating RT to C-spine and rt humerus, completed 3 fractions to date. Would expect palliative effect after at least 4-5 fxs. MRI L-S spine shows L4 epidural extension w/thecal sac impingement, S2 nondisplaced fracture. Plan to add RT to LS spine. Plts trending down, follow CBC as multiple RT mcclain increase risk of cytopenias. Cont decadron 4q6h, soft collar, neuro monitoring, PT as tolerated. If neck pain worsens, consider x-ray C-spine to r/o progressive fracture during RT. Will cont RT.
--- NOTE | 2016-08-24 21:09 | PN ---
Progress Note (short form) - Note Progress Note: Patient seen and examined Pain overall improved RT ongoing - right humerus and cervical spine. Additional field to be added to Lumbar area for epidural extension of tumor. Have ordered Faslodex, and awaiting procurement by hospital. Last Vital Signs Temp Pulse Resp BP Pulse Ox 98.6 F 94 H 20 146/73 99 08/24/16 19:33 08/24/16 19:33 08/24/16 19:33 08/24/16 19:33 08/24/16 09:00 HEENT: MALI, EOM Intact Oropharynx: No thrush, No mucositis Breasts: right breast mass, left breast and pagetoid nipple Cor: RSR, systolic murmur Lungs:decreased breath sounds bilaterally Abd: Soft, Normal bowel sounds, No organomegaly Ext:No significant edema Skin: No rashes, Integument intact CBC, BMP 08/24/16 07:00 08/24/16 07:00 Current Medications Generic Name Dose Route Start Last Admin Trade Name Freq PRN Reason Stop Dose Admin Acetaminophen 650 mg 08/12/16 14:57 08/14/16 13:56 Tylenol - PO 650 mg Q4H PRN Administration FEVER OR PAIN Albuterol/Ipratropium 1 amp 08/14/16 11:30 08/24/16 18:15 Duoneb - NEB 1 amp Q6H DONNY Administration Bisacodyl 10 mg 08/24/16 10:00 Dulcolax Suppository - RC PRN PRN CONSTIPATION Cholecalciferol 500 unit 08/13/16 10:00 08/24/16 11:22 Vitamin D3 - PO 500 unit DAILY DONNY Administration Dexamethasone 4 mg 08/20/16 18:00 08/24/16 18:05 Decadron - PO 4 mg Q6HPO DONNY Administration Docusate Sodium 100 mg 08/23/16 14:00 08/24/16 14:20 Colace - PO 100 mg TID DONNY Administration Enoxaparin Sodium 40 mg 08/23/16 10:00 08/24/16 11:22 Lovenox - SQ 40 mg DAILY DON[facility] Administration Fentanyl 1 patch 08/23/16 08:30 08/23/16 08:53 Duragesic 50mcg Patch - TD 08/30/16 08:27 1 patch Q72H DONNY Administration Fulvestrant 500 mg 08/24/16 10:00 Faslodex - IM 08/24/16 10:01 ONCE ONE Insulin Aspart 1 vial 08/12/16 16:30 08/24/16 16:46 Novolog Vial Sliding Scale - SQ 4 unit ACHS DONNY Administration Protocol Insulin Detemir 7 units 08/17/16 22:00 08/23/16 21:25 Levemir Vial SQ 7 units HS DONNY Administration Miscellaneous 1 each 08/23/16 08:27 08/23/16 09:00 Duragesic Patch Waste TD 1 each PRN PRN Administration PAIN Morphine Sulfate 4 mg 08/23/16 08:28 08/24/16 10:13 Morphine Injection - IVPUSH 4 mg Q4H PRN Administration PAIN Ondansetron HCl 4 mg 08/12/16 14:57 Zofran Injection IVPB Q4H PRN NAUSEA Pantoprazole Sodium 40 mg 08/15/16 13:15 08/24/16 11:22 Protonix - PO 40 mg DAILY [facility] Administration Polyethylene Glycol 17 gm 08/14/16 11:30 08/24/16 11:24 Miralax (For Daily Use) - PO 17 grams DAILY DONNY Administration Senna 2 tab 08/12/16 22:00 08/23/16 21:29 Senna - PO 2 tab HS DONNY Administration Impression: Metastatic breast ca Bone Mets C-spine and lumbar spine epidural mets Pain management Hypercalcemia-improved Plan: Continue decadron -4 mg q6h Monitor chems, Ca++, Phos, Mag CBC RT
[2016-08-24] MEDS ORDERED: INSULIN (NOVOLOG) ASPART 100 UNITS/ML 10ML VIAL ONE (22:18)
[2016-08-24] MEDS: SENNOSIDES 8.6MG TABLET (FP) PO SCH (22:39)
[2016-08-24] MEDS: INSULIN DETEMIR 100 UNITS/ML MDV SQ SCH (22:40)
[2016-08-25] MEDS: DEXAMETHASONE 4 MG TABLET (FP) PO SCH ×4 (00:10→17:10)
[2016-08-25] MEDS ORDERED: INSULIN (NOVOLOG) ASPART 100 UNITS/ML 10ML VIAL ONE ×4 (06:19→21:58)
[2016-08-25] MEDS: ALBUTEROL SO4 2.5/IPRATROPIUM 0.5 INH SOL 3 ML VIAL.NEB. NEB SCH ×4 (06:24→23:45)
[2016-08-25] MEDS: DOCUSATE SODIUM 100 MG CAPSULE (FP) PO SCH ×3 (06:40→22:00)
[2016-08-25] MEDS: INSULIN SLIDING SCALE (NOVOLOG) 1 VIAL SQ SCH ×4 (06:41→21:59)
[2016-08-25 08:03] LABS: BASOPHIL 0.2 % (0-2.0); EOSINOPHIL 0.1 % (0-4.5); MCH 26.1 pg (25.7-33.7); MCHC 32.2 g/dl (32.0-36.0); MEAN CELL VOLUME 81.3 fl (80-96); MEAN PLT VOLUME 8.3 fl (7.5-11.1); NEUTROPHILS 86.8 % (42.8-82.8); PLATELET COUNT 269 K/MM3 (134-434); RDW 15.6 % (11.6-15.6); WHITE BLOOD COUNT 13.5 K/mm3 (4.0-10.0)
[2016-08-25 08:42] LABS: ANION GAP 7 (8-16); CALCIUM 8.9 mg/dL (8.5-10.1); CO2 32 mmol/L (21-32); CREATININE 0.6 mg/dL (0.55-1.02); GLUCOSE,RANDOM 64 mg/dL (74-106); MAGNESIUM 2.4 mg/dL (1.8-2.4); SGOT/AST 47 U/L (15-37); SGPT/ALT 25 U/L (12-78)
[2016-08-25 08:44] LABS: ALK PHOS 369 U/L (45-117); BILIRUBIN,TOTAL 0.5 mg/dL (0.2-1.0); TOT PROT 6.7 g/dl (6.4-8.2)
[2016-08-25] MEDS: PANTOPRAZOLE 40 MG TABLET (FP) PO SCH (09:24)
[2016-08-25] MEDS: CHOLECALCIFEROL (VITAMIN D3) 400 UNIT TABLET (FP) PO SCH (09:24)
[2016-08-25] MEDS: POLYETHYLENE GLYCOL 3350 119 GM BTL PO SCH (09:26)
[2016-08-25] MEDS: ENOXAPARIN NA (PORCINE) 40 MG/0.4 ML DISP.SYRIN SQ SCH (09:26)
[2016-08-25] MEDS: morphine CARPU-JECT 4 MG/1 ML DISP.SYRIN IVPUSH PRN (09:30)
--- NOTE | 2016-08-25 10:11 | PN ---
Progress Note (short form) - Note Progress Note: SUBJECTIVE: The patient was seen and examined at the bedside, she is denying any pain. She is refusing soft collar. Radiation therapy #4 today Remains on Dexamethasone 4mg q6h Current Medications Generic Name Dose Route Start Last Admin Trade Name Mahadq PRN Reason Stop Dose Admin Acetaminophen 650 mg 08/12/16 14:57 08/14/16 13:56 Tylenol - PO 650 mg Q4H PRN Administration FEVER OR PAIN Albuterol/Ipratropium 1 amp 08/14/16 11:30 08/25/16 06:24 Duoneb - NEB 1 amp Q6H DONNY Administration Bisacodyl 10 mg 08/24/16 10:00 Dulcolax Suppository - RC PRN PRN CONSTIPATION Cholecalciferol 500 unit 08/13/16 10:00 08/25/16 09:24 Vitamin D3 - PO 500 unit DAILY DON[facility] Administration Dexamethasone 4 mg 08/20/16 18:00 08/25/16 06:40 Decadron - PO 4 mg Q6HPO DONNY Administration Docusate Sodium 100 mg 08/23/16 14:00 08/25/16 06:40 Colace - PO 100 mg TID DONNY Administration Enoxaparin Sodium 40 mg 08/23/16 10:00 08/25/16 09:26 Lovenox - SQ 40 mg DAILY DON[facility] Administration Fentanyl 1 patch 08/23/16 08:30 08/23/16 08:53 Duragesic 50mcg Patch - TD 08/30/16 08:27 1 patch Q72H DONNY Administration Fulvestrant 500 mg 08/24/16 10:00 Faslodex - IM 08/24/16 10:01 ONCE ONE Insulin Aspart 1 vial 08/12/16 16:30 08/25/16 06:41 Novolog Vial Sliding Scale - SQ Not Given ACHS [facility] Protocol Insulin Detemir 7 units 08/17/16 22:00 08/24/16 22:40 Levemir Vial SQ 7 units HS DONNY Administration Miscellaneous 1 each 08/23/16 08:27 08/23/16 09:00 Duragesic Patch Waste TD 1 each PRN PRN Administration PAIN Morphine Sulfate 4 mg 08/23/16 08:28 08/25/16 09:30 Morphine Injection - IVPUSH 4 mg Q4H PRN Administration PAIN Ondansetron HCl 4 mg 08/12/16 14:57 Zofran Injection IVPB Q4H PRN NAUSEA Pantoprazole Sodium 40 mg 08/15/16 13:15 08/25/16 09:24 Protonix - PO 40 mg DAILY DON[facility] Administration Polyethylene Glycol 17 gm 08/14/16 11:30 08/25/16 09:26 Miralax (For Daily Use) - PO 17 grams DAILY DONNY Administration Senna 2 tab 08/12/16 22:00 08/24/16 22:39 Senna - PO 2 tab HS DONNY Administration OBJECTIVE: Vital Signs Period Temp Pulse Resp BP Sys/Cash Pulse Ox Last 24 Hr 97.5 F-98.6 F 72-94 20-20 141-146/73-78 99 Physical Exam: General: NAD, A&Ox3, radiation markings on right arm and neck HEENT: Poor dentition Breast: Right breast mass, L breast with retraction and skin changes Lungs: CTA bilaterally Heart: RRR, S1S2, +murmur Abd: Soft, non-tender, non-distended. Normoactive bowel sounds Ext: Warm, well-perfused. Able to move all toes. Right shoulder decreased ROM, tenderness CBCD WBC 13.5 K/mm3 (4.0-10.0) H 08/25/16 06:40 RBC 4.37 M/mm3 (3.60-5.2) 08/25/16 06:40 Hgb 11.4 GM/dL (10.7-15.3) 08/25/16 06:40 Hct 35.5 % (32.4-45.2) 08/25/16 06:40 MCV 81.3 fl (80-96) 08/25/16 06:40 MCHC 32.2 g/dl (32.0-36.0) 08/25/16 06:40 RDW 15.6 % (11.6-15.6) 08/25/16 06:40 Plt Count 269 K/MM3 (134-434) 08/25/16 06:40 MPV 8.3 fl (7.5-11.1) 08/25/16 06:40 CMP Sodium 140 mmol/L (136-145) 08/25/16 06:40 Potassium 4.4 mmol/L (3.5-5.1) 08/25/16 06:40 Chloride 101 mmol/L (98-107) 08/25/16 06:40 Carbon Dioxide 32 mmol/L (21-32) 08/25/16 06:40 Anion Gap 7 (8-16) L 08/25/16 06:40 BUN 28 mg/dL (7-18) H 08/25/16 06:40 Creatinine 0.6 mg/dL (0.55-1.02) 08/25/16 06:40 Creat Clearance w eGFR > 60 (>60) 08/25/16 06:40 Random Glucose 64 mg/dL (74-106) L 08/25/16 06:40 Calcium 8.9 mg/dL (8.5-10.1) 08/25/16 06:40 Total Bilirubin 0.5 mg/dL (0.2-1.0) D 08/25/16 06:40 AST 47 U/L (15-37) H 08/25/16 06:40 ALT 25 U/L (12-78) 08/25/16 06:40 Alkaline Phosphatase 369 U/L (45-117) H 08/25/16 06:40 Total Protein 6.7 g/dl (6.4-8.2) 08/25/16 06:40 Albumin 3.0 g/dl (3.4-5.0) L 08/25/16 06:40 Microbiology 08/14/16 13:20 Urine - Urine Clean Catch Urine Culture - Final NO GROWTH OBTAINED Assessment: This is a 80 year old female with PMHx of metastatic breast cancer, anemia, NIDDM, who presented to the ED with increased diffuse pain, weakness, hypercalcemia and was admitted for further evaluation and management of her condition. Plan: 1) Oncology: Metastatic breast cancer with diffuse skeletal and spine mets complicated by cord compression on C5-6 - MRI with extensive diffuse bony metastases are seen in the cervicothoracic spine. Extensive pathological bone marrow replacement is seen in C5,C6,C7. Compressed C6 vertebral body with retopulsion. Cord compression at the level of C5-C6 - MRI lumbar: diffuse bony metastatic neoplasm disease. Minimal to mild ventral cortical buckling of the upper sacrum at the S2 level consistent with nondisplaced pathologic fracture. A small amount of epidural soft tissue neoplastic disease is seen along the left posterolateral aspect of the L4 vertebral body with resultant mild thecal sac indentation - Continue Decadron 4mg q6h - Continue Fentanyl patch increased to 50mcg on 08/24 - Continue Morphine prn for breakthrough pain - Continue radiation, #4 today - Appreciate neurosurgery consult - Appreciate oncology consult 3) Heme: Anemia 2/2 chronic illness - Continue ferrous sulfate 4) Endocrine: NIDDM - Continue Levemir 7u sq qhs - BGM ACHS - ISS ACHS 5) F/E/N: - Monitor electrolytes - Diabetic diet 6) Prophylaxis: - Lovenox 40mg sq daily 7) Dispo: - Requires continued inpatient care CODE STATUS: FULL CODE Visit type - Emergency Visit Emergency Visit: Yes ED Registration Date: 08/12/16 Care time: The patient presented to the Emergency Department on the above date and was hospitalized for further evaluation of their emergent condition. - New Patient This patient is new to me today: No - Critical Care Critical Care patient: No
--- NOTE | 2016-08-25 19:38 | PN ---
Progress Note (short form) - Note Progress Note: Patient seen and examined . No specific complaints Last Vital Signs Temp Pulse Resp BP Pulse Ox 97.9 F 95 H 18 147/80 95 08/25/16 13:16 08/25/16 13:16 08/25/16 13:16 08/25/16 09:00 08/25/16 09:00 HEENT: MALI, EOM Intact Oropharynx: No thrush, No mucositis Cor: RSR, No murmurs, No gallops Lungs: diminished breasth sounds Abd: Soft, Normal bowel sounds, No organomegaly Ext:No significant edema Skin: No rashes, Integument intact Abnormal Lab Results 08/25/16 08/25/16 06:40 06:40 WBC 13.5 H Neutrophils % 86.8 H Lymphocytes % 5.4 L D Anion Gap 7 L BUN 28 H Random Glucose 64 L AST 47 H Alkaline Phosphatase 369 H Albumin 3.0 L Current Medications Acetaminophen (Tylenol -) 650 mg PO Q4H PRN PRN Reason: FEVER OR PAIN Last Admin: 08/14/16 13:56 Dose: 650 mg Albuterol/Ipratropium (Duoneb -) 1 amp NEB Q6H [facility] Last Admin: 08/25/16 18:39 Dose: 1 amp Bisacodyl (Dulcolax Suppository -) 10 mg RC PRN PRN PRN Reason: CONSTIPATION Cholecalciferol (Vitamin D3 -) 500 unit PO DAILY [facility] Last Admin: 08/25/16 09:24 Dose: 500 unit Dexamethasone (Decadron -) 4 mg PO Q6HPO [facility] Last Admin: 08/25/16 17:10 Dose: 4 mg Docusate Sodium (Colace -) 100 mg PO TID [facility] Last Admin: 08/25/16 13:48 Dose: 100 mg Enoxaparin Sodium (Lovenox -) 40 mg SQ DAILY [facility] Last Admin: 08/25/16 09:26 Dose: 40 mg Fentanyl (Duragesic 50mcg Patch -) 1 patch TD Q72H [facility] Stop: 08/30/16 08:27 Last Admin: 08/23/16 08:53 Dose: 1 patch Fulvestrant (Faslodex -) 500 mg IM ONCE ONE Stop: 08/24/16 10:01 Insulin Aspart (Novolog Vial Sliding Scale -) 1 vial SQ ACHS [facility] PRN Reason: Protocol Last Admin: 08/25/16 17:04 Dose: 4 unit Insulin Detemir (Levemir Vial) 7 units SQ HS [facility] Last Admin: 08/24/16 22:40 Dose: 7 units Miscellaneous (Duragesic Patch Waste) 1 each TD PRN PRN PRN Reason: PAIN Last Admin: 08/23/16 09:00 Dose: 1 each Morphine Sulfate (Morphine Injection -) 4 mg IVPUSH Q4H PRN PRN Reason: PAIN Last Admin: 08/25/16 09:30 Dose: 4 mg Ondansetron HCl (Zofran Injection) 4 mg IVPB Q4H PRN PRN Reason: NAUSEA Pantoprazole Sodium (Protonix -) 40 mg PO DAILY [facility] Last Admin: 08/25/16 09:24 Dose: 40 mg Polyethylene Glycol (Miralax (For Daily Use) -) 17 gm PO DAILY [facility] Last Admin: 08/25/16 09:26 Dose: 17 grams Senna (Senna -) 2 tab PO HS [facility] Last Admin: 08/24/16 22:39 Dose: 2 tab Impression: Metastatic breast ca with extensive skeletal mets Spine CT with diffuse lytic mets, destruction of C-6 with retropulsion and L4 met with minimal extension into spine and neural impingement Getting RT to C spine and possibly adding LS spine on decadron 4 mg Q6h/protonix monitor CBC
[2016-08-25] MEDS: INSULIN DETEMIR 100 UNITS/ML MDV SQ SCH (21:57)
[2016-08-25] MEDS: SENNOSIDES 8.6MG TABLET (FP) PO SCH (22:00)
[2016-08-26] MEDS: DEXAMETHASONE 4 MG TABLET (FP) PO SCH ×4 (00:19→17:19)
[2016-08-26] MEDS: morphine CARPU-JECT 4 MG/1 ML DISP.SYRIN IVPUSH PRN ×2 (00:47→09:58)
[2016-08-26] MEDS: INSULIN SLIDING SCALE (NOVOLOG) 1 VIAL SQ SCH ×4 (06:20→21:15)
[2016-08-26] MEDS: DOCUSATE SODIUM 100 MG CAPSULE (FP) PO SCH ×3 (06:23→21:17)
[2016-08-26] MEDS: ALBUTEROL SO4 2.5/IPRATROPIUM 0.5 INH SOL 3 ML VIAL.NEB. NEB SCH ×4 (07:35→22:40)
[2016-08-26 08:20] LABS: MCH 26.6 pg (25.7-33.7); MCHC 32.7 g/dl (32.0-36.0); MEAN CELL VOLUME 81.5 fl (80-96); MEAN PLT VOLUME 8.4 fl (7.5-11.1); PLATELET COUNT 255 K/MM3 (134-434); RDW 15.8 % (11.6-15.6); WHITE BLOOD COUNT 13.6 K/mm3 (4.0-10.0)
[2016-08-26 08:40] LABS: ALBUMIN 3.1 g/dl (3.4-5.0); ANION GAP 6 (8-16); BILIRUBIN,TOTAL 0.6 mg/dL (0.2-1.0); CALCIUM 8.7 mg/dL (8.5-10.1); CO2 33 mmol/L (21-32); CREATININE 0.5 mg/dL (0.55-1.02); GLUCOSE,RANDOM 61 mg/dL (74-106); SGOT/AST 47 U/L (15-37); SGPT/ALT 27 U/L (12-78); TOT PROT 6.9 g/dl (6.4-8.2)
[2016-08-26 08:41] LABS: ALK PHOS 388 U/L (45-117)
--- NOTE | 2016-08-26 09:31 | PN ---
[id number] bedside, she is denying any pain now. She is refusing soft collar. Radiation therapy #5 today Required Morphine this AM for right shoulder pain Remains on Dexamethasone 4mg q6h Current Medications Generic Name Dose Route Start Last Admin Trade Name Mahadq PRN Reason Stop Dose Admin Acetaminophen 650 mg 08/12/16 14:57 08/14/16 13:56 Tylenol - PO 650 mg Q4H PRN Administration FEVER OR PAIN Albuterol/Ipratropium 1 amp 08/14/16 11:30 08/26/16 07:35 Duoneb - NEB 1 amp Q6H DONNY Administration Bisacodyl 10 mg 08/24/16 10:00 Dulcolax Suppository - RC PRN PRN CONSTIPATION Cholecalciferol 500 unit 08/13/16 10:00 08/25/16 09:24 Vitamin D3 - PO 500 unit DAILY [facility] Administration Dexamethasone 4 mg 08/20/16 18:00 08/26/16 06:23 Decadron - PO 4 mg Q6HPO DONNY Administration Docusate Sodium 100 mg 08/23/16 14:00 08/26/16 06:23 Colace - PO 100 mg TID DONNY Administration Enoxaparin Sodium 40 mg 08/23/16 10:00 08/25/16 09:26 Lovenox - SQ 40 mg DAILY [facility]NY Administration Fentanyl 1 patch 08/23/16 08:30 08/23/16 08:53 Duragesic 50mcg Patch - TD 08/30/16 08:27 1 patch Q72H DONNY Administration Fulvestrant 500 mg 08/24/16 10:00 Faslodex - IM 08/24/16 10:01 ONCE ONE Insulin Aspart 1 vial 08/12/16 16:30 08/26/16 06:20 Novolog Vial Sliding Scale - SQ Not Given ACHS [facility] Protocol Insulin Detemir 7 units 08/17/16 22:00 08/25/16 21:57 Levemir Vial SQ 7 units HS DONNY Administration Miscellaneous 1 each 08/23/16 08:27 08/23/16 09:00 Duragesic Patch Waste TD 1 each PRN PRN Administration PAIN Morphine Sulfate 4 mg 08/23/16 08:28 08/26/16 00:47 Morphine Injection - IVPUSH 4 mg Q4H PRN Administration PAIN Ondansetron HCl 4 mg 08/12/16 14:57 Zofran Injection IVPB Q4H PRN NAUSEA Pantoprazole Sodium 40 mg 08/15/16 13:15 08/25/16 09:24 Protonix - PO 40 mg DAILY DONNY Administration Polyethylene Glycol 17 gm 08/14/16 11:30 08/25/16 09:26 Miralax (For Daily Use) - PO 17 grams DAILY DONNY Administration Senna 2 tab 08/12/16 22:00 08/25/16 22:00 Senna - PO 2 tab HS DONNY Administration OBJECTIVE: Vital Signs Period Temp Pulse Resp BP Sys/Cash Pulse Ox Last 24 Hr 97.9 F-98.1 F 93-96 18-20 146-152/63-80 98 Physical Exam: General: NAD, A&Ox3, radiation markings on right arm and neck HEENT: Poor dentition Breast: Right breast mass, L breast with retraction and skin changes Lungs: CTA bilaterally Heart: RRR, S1S2, +murmur Abd: Soft, non-tender, non-distended. Normoactive bowel sounds Ext: Warm, well-perfused. Able to move all toes. Right shoulder decreased ROM, tenderness CBCD WBC 13.6 K/mm3 (4.0-10.0) H 08/26/16 07:00 RBC 4.43 M/mm3 (3.60-5.2) 08/26/16 07:00 Hgb 11.8 GM/dL (10.7-15.3) 08/26/16 07:00 Hct 36.1 % (32.4-45.2) 08/26/16 07:00 MCV 81.5 fl (80-96) 08/26/16 07:00 MCHC 32.7 g/dl (32.0-36.0) 08/26/16 07:00 RDW 15.8 % (11.6-15.6) H 08/26/16 07:00 Plt Count 255 K/MM3 (134-434) 08/26/16 07:00 MPV 8.4 fl (7.5-11.1) 08/26/16 07:00 CMP Sodium 141 mmol/L (136-145) 08/26/16 07:00 Potassium 4.4 mmol/L (3.5-5.1) 08/26/16 07:00 Chloride 102 mmol/L (98-107) 08/26/16 07:00 Carbon Dioxide 33 mmol/L (21-32) H 08/26/16 07:00 Anion Gap 6 (8-16) L 08/26/16 07:00 BUN 31 mg/dL (7-18) H 08/26/16 07:00 Creatinine 0.5 mg/dL (0.55-1.02) L 08/26/16 07:00 Creat Clearance w eGFR > 60 (>60) 08/26/16 07:00 Random Glucose 61 mg/dL (74-106) L 08/26/16 07:00 Calcium 8.7 mg/dL (8.5-10.1) 08/26/16 07:00 Total Bilirubin 0.6 mg/dL (0.2-1.0) 08/26/16 07:00 AST 47 U/L (15-37) H 08/26/16 07:00 ALT 27 U/L (12-78) 08/26/16 07:00 Alkaline Phosphatase 388 U/L (45-117) H 08/26/16 07:00 Total Protein 6.9 g/dl (6.4-8.2) 08/26/16 07:00 Albumin 3.1 g/dl (3.4-5.0) L 08/26/16 07:00 Microbiology 08/14/16 13:20 Urine - Urine Clean Catch Urine Culture - Final NO GROWTH OBTAINED Assessment: This is a 80 year old female with PMHx of metastatic breast cancer, anemia, NIDDM, who presented to the ED with increased diffuse pain, weakness, hypercalcemia and was admitted for further evaluation and management of her condition. Plan: 1) Oncology: Metastatic breast cancer with diffuse skeletal and spine mets complicated by cord compression on C5-6 - MRI with extensive diffuse bony metastases are seen in the cervicothoracic spine. Extensive pathological bone marrow replacement is seen in C5,C6,C7. Compressed C6 vertebral body with retopulsion. Cord compression at the level of C5-C6 - MRI lumbar: diffuse bony metastatic neoplasm disease. Minimal to mild ventral cortical buckling of the upper sacrum at the S2 level consistent with nondisplaced pathologic fracture. A small amount of epidural soft tissue neoplastic disease is seen along the left posterolateral aspect of the L4 vertebral body with resultant mild thecal sac indentation - Continue Decadron 4mg q6h - Continue Fentanyl patch increased to 50mcg on 08/24 - Continue Morphine prn for breakthrough pain - Continue radiation, #5 today, per rad onc will add lumbar spine - Appreciate neurosurgery consult - Appreciate oncology consult 3) Heme: Anemia 2/2 chronic illness - Continue ferrous sulfate 4) GI: Constipation - Continue Miralax, Colace, Senna, Doculax suppository 5) Endocrine: NIDDM - Continue Levemir 7u sq qhs - BGM ACHS - ISS ACHS 6) F/E/N: - Monitor electrolytes - Diabetic diet 7) Prophylaxis: - Lovenox 40mg sq daily 8) Dispo: - Requires continued inpatient care CODE STATUS: FULL CODE Visit type - Emergency Visit Emergency Visit: Yes ED Registration Date: 08/12/16 Care time: The patient presented to the Emergency Department on the above date and was hospitalized for further evaluation of their emergent condition. - New Patient This patient is new to me today: No - Critical Care Critical Care patient: No
[2016-08-26] MEDS: POLYETHYLENE GLYCOL 3350 119 GM BTL PO SCH (09:59)
[2016-08-26] MEDS: ENOXAPARIN NA (PORCINE) 40 MG/0.4 ML DISP.SYRIN SQ SCH (09:59)
[2016-08-26] MEDS: PANTOPRAZOLE 40 MG TABLET (FP) PO SCH ×2 (09:59→21:16)
[2016-08-26] MEDS: CHOLECALCIFEROL (VITAMIN D3) 400 UNIT TABLET (FP) PO SCH (09:59)
[2016-08-26] MEDS: fentaNYL 50mcg/hr PATCH.TD72 TD SCH (09:59)
[2016-08-26] MEDS: FENTANYL PATCH WASTE TD PRN (10:07)
[2016-08-26] MEDS ORDERED: INSULIN (NOVOLOG) ASPART 100 UNITS/ML 10ML VIAL ONE ×3 (11:11→21:15)
--- NOTE | 2016-08-26 13:51 | PN ---
Progress Note (short form) - Note Progress Note: Radiation Oncology Tolerating RT to C-spine and rt humerus, completed 5 fractions to date. Humerus completed. Will add L-S spine field tomorrow Plts trending down, follow CBC as multiple RT mcclain increase risk of cytopenias. Cont decadron 4q6h, soft collar, neuro monitoring, PT as tolerated. Analgesics for pain control.
--- NOTE | 2016-08-26 19:54 | PN ---
Progress Note (short form) - Note Progress Note: Patient seen and examined . No specific complaints Last Vital Signs Temp Pulse Resp BP Pulse Ox 98.0 F 90 21 142/77 98 08/26/16 13:44 08/26/16 13:44 08/26/16 13:44 08/26/16 08:00 08/26/16 08:00 HEENT: MALI, EOM Intact Oropharynx: No thrush, No mucositis Cor: RSR, No murmurs, No gallops Lungs: diminished breasth sounds Abd: Soft, Normal bowel sounds, No organomegaly Ext:No significant edema Abnormal Lab Results 08/26/16 08/26/16 07:00 07:00 WBC 13.6 H RDW 15.8 H Carbon Dioxide 33 H Anion Gap 6 L BUN 31 H Creatinine 0.5 L Random Glucose 61 L AST 47 H Alkaline Phosphatase 388 H Albumin 3.1 L Current Medications Acetaminophen (Tylenol -) 650 mg PO Q4H PRN PRN Reason: FEVER OR PAIN Last Admin: 08/14/16 13:56 Dose: 650 mg Al Hydroxide/Mg Hydroxide (Mylanta Oral Suspension -) 30 ml PO Q6H PRN PRN Reason: DYSPEPSIA Albuterol/Ipratropium (Duoneb -) 1 amp NEB Q6H [facility] Last Admin: 08/26/16 17:15 Dose: Not Given Bisacodyl (Dulcolax Suppository -) 10 mg RC PRN PRN PRN Reason: CONSTIPATION Cholecalciferol (Vitamin D3 -) 500 unit PO DAILY [facility] Last Admin: 08/26/16 09:59 Dose: 500 unit Dexamethasone (Decadron -) 4 mg PO Q6HPO [facility] Last Admin: 08/26/16 17:19 Dose: 4 mg Docusate Sodium (Colace -) 100 mg PO TID [facility] Last Admin: 08/26/16 14:43 Dose: 100 mg Enoxaparin Sodium (Lovenox -) 40 mg SQ DAILY [facility] Last Admin: 08/26/16 09:59 Dose: 40 mg Fentanyl (Duragesic 50mcg Patch -) 1 patch TD Q72H [facility] Stop: 08/30/16 08:27 Last Admin: 08/26/16 09:59 Dose: 1 patch Fulvestrant (Faslodex -) 500 mg IM ONCE ONE Stop: 08/24/16 10:01 Insulin Aspart (Novolog Vial Sliding Scale -) 1 vial SQ ACHS [facility] PRN Reason: Protocol Last Admin: 08/26/16 16:02 Dose: Not Given Insulin Detemir (Levemir Vial) 7 units SQ HS [facility] Last Admin: 08/25/16 21:57 Dose: 7 units Miscellaneous (Duragesic Patch Waste) 1 each TD PRN PRN PRN Reason: PAIN Last Admin: 08/26/16 10:07 Dose: 1 each Morphine Sulfate (Morphine Injection -) 4 mg IVPUSH Q4H PRN PRN Reason: PAIN Last Admin: 08/26/16 09:58 Dose: 4 mg Ondansetron HCl (Zofran Injection) 4 mg IVPB Q4H PRN PRN Reason: NAUSEA Pantoprazole Sodium (Protonix -) 40 mg PO BID [facility] Last Admin: 08/26/16 09:59 Dose: 40 mg Polyethylene Glycol (Miralax (For Daily Use) -) 17 gm PO DAILY [facility] Last Admin: 08/26/16 09:59 Dose: 17 grams Senna (Senna -) 2 tab PO [facility] Last Admin: 08/25/16 22:00 Dose: 2 tab Impression: Metastatic breast ca with extensive skeletal mets Spine CT with diffuse lytic mets, destruction of C-6 with retropulsion and L4 met with minimal extension into spine and neural impingement Getting RT to C spine/humerus --completed today? possibly adding LS spine tomorrow on decadron 4 mg Q6h/protonix mild abdominal distention--had bowel movement today.soft, NT, BS+ On 50mcg Q72h of fentanyl/morphine on miralax check KUB will reconsult ortho regarding physical therapy instructions
[2016-08-26] MEDS: INSULIN DETEMIR 100 UNITS/ML MDV SQ SCH (21:14)
[2016-08-26] MEDS: SENNOSIDES 8.6MG TABLET (FP) PO SCH (21:16)
[2016-08-27] MEDS: DEXAMETHASONE 4 MG TABLET (FP) PO SCH ×5 (00:42→21:25)
[2016-08-27] MEDS: ALBUTEROL SO4 2.5/IPRATROPIUM 0.5 INH SOL 3 ML VIAL.NEB. NEB SCH ×4 (06:35→22:31)
[2016-08-27] MEDS: INSULIN SLIDING SCALE (NOVOLOG) 1 VIAL SQ SCH ×4 (06:41→21:26)
[2016-08-27] MEDS: DOCUSATE SODIUM 100 MG CAPSULE (FP) PO SCH ×3 (06:44→21:25)
[2016-08-27 08:30] LABS: MCH 26.5 pg (25.7-33.7); MCHC 32.4 g/dl (32.0-36.0); MEAN CELL VOLUME 81.8 fl (80-96); MEAN PLT VOLUME 8.4 fl (7.5-11.1); PLATELET COUNT 245 K/MM3 (134-434); RDW 15.8 % (11.6-15.6); WHITE BLOOD COUNT 14.6 K/mm3 (4.0-10.0)
[2016-08-27 09:11] LABS: ALBUMIN 3.1 g/dl (3.4-5.0); ANION GAP 5 (8-16); CALCIUM 9.1 mg/dL (8.5-10.1); CO2 32 mmol/L (21-32); CREATININE 0.5 mg/dL (0.55-1.02); GLUCOSE,RANDOM 91 mg/dL (74-106); SGOT/AST 49 U/L (15-37); SGPT/ALT 26 U/L (12-78)
[2016-08-27 09:13] LABS: ALK PHOS 352 U/L (45-117); BILIRUBIN,TOTAL 0.6 mg/dL (0.2-1.0); TOT PROT 6.9 g/dl (6.4-8.2)
[2016-08-27] MEDS: ENOXAPARIN NA (PORCINE) 40 MG/0.4 ML DISP.SYRIN SQ SCH (09:28)
[2016-08-27] MEDS: morphine CARPU-JECT 4 MG/1 ML DISP.SYRIN IVPUSH PRN (09:28)
[2016-08-27] MEDS: POLYETHYLENE GLYCOL 3350 119 GM BTL PO SCH (09:28)
[2016-08-27] MEDS: CHOLECALCIFEROL (VITAMIN D3) 400 UNIT TABLET (FP) PO SCH (09:29)
[2016-08-27] MEDS: PANTOPRAZOLE 40 MG TABLET (FP) PO SCH ×2 (09:29→21:26)
--- NOTE | 2016-08-27 12:08 | PN ---
Progress Note (short form) - Note Progress Note: SUBJECTIVE: The patient was seen and examined at the bedside, she is denying any pain now. She is refusing soft collar. Radiation therapy #6 today Current Medications Generic Name Dose Route Start Last Admin Trade Name Freq PRN Reason Stop Dose Admin Acetaminophen 650 mg 08/12/16 14:57 08/14/16 13:56 Tylenol - PO 650 mg Q4H PRN Administration FEVER OR PAIN Albuterol/Ipratropium 1 amp 08/14/16 11:30 08/26/16 07:35 Duoneb - NEB 1 amp Q6H DONNY Administration Bisacodyl 10 mg 08/24/16 10:00 Dulcolax Suppository - RC PRN PRN CONSTIPATION Cholecalciferol 500 unit 08/13/16 10:00 08/25/16 09:24 Vitamin D3 - PO 500 unit DAILY DONNY Administration Dexamethasone 4 mg 08/20/16 18:00 08/26/16 06:23 Decadron - PO 4 mg Q6HPO DONNY Administration Docusate Sodium 100 mg 08/23/16 14:00 08/26/16 06:23 Colace - PO 100 mg TID DONNY Administration Enoxaparin Sodium 40 mg 08/23/16 10:00 08/25/16 09:26 Lovenox - SQ 40 mg DAILY DONNY Administration Fentanyl 1 patch 08/23/16 08:30 08/23/16 08:53 Duragesic 50mcg Patch - TD 08/30/16 08:27 1 patch Q72H DONNY Administration Fulvestrant 500 mg 08/24/16 10:00 Faslodex - IM 08/24/16 10:01 ONCE ONE Insulin Aspart 1 vial 08/12/16 16:30 08/26/16 06:20 Novolog Vial Sliding Scale - SQ Not Given ACHS [facility] Protocol Insulin Detemir 7 units 08/17/16 22:00 08/25/16 21:57 Levemir Vial SQ 7 units HS DONNY Administration Miscellaneous 1 each 08/23/16 08:27 08/23/16 09:00 Duragesic Patch Waste TD 1 each PRN PRN Administration PAIN Morphine Sulfate 4 mg 08/23/16 08:28 08/26/16 00:47 Morphine Injection - IVPUSH 4 mg Q4H PRN Administration PAIN Ondansetron HCl 4 mg 08/12/16 14:57 Zofran Injection IVPB Q4H PRN NAUSEA Pantoprazole Sodium 40 mg 08/15/16 13:15 08/25/16 09:24 Protonix - PO 40 mg DAILY DONNY Administration Polyethylene Glycol 17 gm 08/14/16 11:30 08/25/16 09:26 Miralax (For Daily Use) - PO 17 grams DAILY DONNY Administration Senna 2 tab 08/12/16 22:00 08/25/16 22:00 Senna - PO 2 tab HS DONNY Administration OBJECTIVE: Vital Signs Period Temp Pulse Resp BP Sys/Cash Pulse Ox Last 24 Hr 97.6 F-98.0 F 80-96 20-21 138-150/74-86 97-98 Physical Exam: General: NAD, A&Ox3, radiation markings on right arm and neck HEENT: Poor dentition Breast: Right breast mass, L breast with retraction and skin changes Lungs: CTA bilaterally Heart: RRR, S1S2, +murmur Abd: Soft, non-tender, non-distended. Normoactive bowel sounds Ext: Warm, well-perfused. Able to move all toes. Right shoulder decreased ROM, tenderness CBCD WBC 14.6 K/mm3 (4.0-10.0) H 08/27/16 07:15 RBC 4.46 M/mm3 (3.60-5.2) 08/27/16 07:15 Hgb 11.8 GM/dL (10.7-15.3) 08/27/16 07:15 Hct 36.5 % (32.4-45.2) 08/27/16 07:15 MCV 81.8 fl (80-96) 08/27/16 07:15 MCHC 32.4 g/dl (32.0-36.0) 08/27/16 07:15 RDW 15.8 % (11.6-15.6) H 08/27/16 07:15 Plt Count 245 K/MM3 (134-434) 08/27/16 07:15 MPV 8.4 fl (7.5-11.1) 08/27/16 07:15 CMP Sodium 138 mmol/L (136-145) 08/27/16 07:15 Potassium 4.5 mmol/L (3.5-5.1) 08/27/16 07:15 Chloride 101 mmol/L (98-107) 08/27/16 07:15 Carbon Dioxide 32 mmol/L (21-32) 08/27/16 07:15 Anion Gap 5 (8-16) L 08/27/16 07:15 BUN 34 mg/dL (7-18) H 08/27/16 07:15 Creatinine 0.5 mg/dL (0.55-1.02) L 08/27/16 07:15 Creat Clearance w eGFR > 60 (>60) 08/27/16 07:15 Random Glucose 91 mg/dL (74-106) D 08/27/16 07:15 Calcium 9.1 mg/dL (8.5-10.1) 08/27/16 07:15 Total Bilirubin 0.6 mg/dL (0.2-1.0) 08/27/16 07:15 AST 49 U/L (15-37) H 08/27/16 07:15 ALT 26 U/L (12-78) 08/27/16 07:15 Alkaline Phosphatase 352 U/L (45-117) H 08/27/16 07:15 Total Protein 6.9 g/dl (6.4-8.2) 08/27/16 07:15 Albumin 3.1 g/dl (3.4-5.0) L 08/27/16 07:15 Microbiology 08/14/16 13:20 Urine - Urine Clean Catch Urine Culture - Final NO GROWTH OBTAINED Assessment: This is a 80 year old female with PMHx of metastatic breast cancer, anemia, NIDDM, who presented to the ED with increased diffuse pain, weakness, hypercalcemia and was admitted for further evaluation and management of her condition. Plan: 1) Oncology: Metastatic breast cancer with diffuse skeletal and spine mets complicated by cord compression on C5-6 - MRI with extensive diffuse bony metastases are seen in the cervicothoracic spine. Extensive pathological bone marrow replacement is seen in C5,C6,C7. Compressed C6 vertebral body with retopulsion. Cord compression at the level of C5-C6 - MRI lumbar: diffuse bony metastatic neoplasm disease. Minimal to mild ventral cortical buckling of the upper sacrum at the S2 level consistent with nondisplaced pathologic fracture. A small amount of epidural soft tissue neoplastic disease is seen along the left posterolateral aspect of the L4 vertebral body with resultant mild thecal sac indentation - Continue Decadron 4mg q6h - Continue Fentanyl patch increased to 50mcg on 08/24 - Continue Morphine prn for breakthrough pain - Continue radiation, #6 today, per rad onc will add lumbar spine today - Appreciate neurosurgery consult - Appreciate oncology consult 3) Heme: Anemia 2/2 chronic illness - Continue ferrous sulfate 4) GI: Constipation - Continue Miralax, Colace, Senna, Doculax suppository - Last bowel movement 08/26 5) Endocrine: NIDDM - Changed Levemir to 3u sq bid (patient with low glucose in AM and hyperglycemia in PM) - BGM ACHS - ISS ACHS 6) F/E/N: - Monitor electrolytes - Diabetic diet 7) Prophylaxis: - Lovenox 40mg sq daily - Reevaluation from ortho for PT recommendations 8) Dispo: - Requires continued inpatient care CODE STATUS: FULL CODE Visit type - Emergency Visit Emergency Visit: Yes ED Registration Date: 08/12/16 Care time: The patient presented to the Emergency Department on the above date and was hospitalized for further evaluation of their emergent condition. - New Patient This patient is new to me today: No - Critical Care Critical Care patient: No
[2016-08-27] MEDS ORDERED: FULVESTRANT 250 MG/5 ML SYRINGE IM ONE (13:00)
[2016-08-27] MEDS ORDERED: INSULIN (NOVOLOG) ASPART 100 UNITS/ML 10ML VIAL ONE ×3 (13:11→21:13)
--- NOTE | 2016-08-27 13:15 | PN ---
Progress Note (short form) - Note Progress Note: Radiation Oncology Neck and shoulder pain controlled. Still has arm pain with movement/extension. Denies dysphagia. Abd Xray neg. Follow CBC as multiple RT mcclain increase risk of cytopenias. Tolerating RT to C-spine, completed 6 fractions to date. Humerus tx now completed. L-S spine field begun today. 4 fractions remaining. Will continue. May begin decadron taper to 4q8h. Cont neuro monitoring, PT as tolerated, analgesics.
[2016-08-27] MEDS: INSULIN DETEMIR 100 UNITS/ML MDV SQ SCH ×2 (13:18→21:25)
--- NOTE | 2016-08-27 17:23 | PN ---
Progress Note (short form) - Note Progress Note: Patient seen and examined RT ongoing . On Fentanyl --50 mcg/72 hr. with morphine IV breakthrough Received Faslodex 500 mg x 1 today Having control of urination Last Vital Signs Temp Pulse Resp BP Pulse Ox 98.3 F 93 H 22 142/76 97 08/27/16 14:00 08/27/16 14:00 08/27/16 14:00 08/27/16 08:00 08/27/16 10:53 HEENT: MALI, EOM Intact Oropharynx: No thrush, No mucositis Breasts: right breast mass; left breast central areolar mass with pagetoid changes Cor: RSR, systolic murmur Lungs:decreased breath sounds bilaterally Abd: Soft, Normal bowel sounds, No organomegaly Ext:No significant edema Skin: No rashes, Integument intact CBC, BMP 08/27/16 07:15 08/27/16 07:15 Current Medications Generic Name Dose Route Start Last Admin Trade Name Freq PRN Reason Stop Dose Admin Acetaminophen 650 mg 08/12/16 14:57 08/14/16 13:56 Tylenol - PO 650 mg Q4H PRN Administration FEVER OR PAIN Al Hydroxide/Mg Hydroxide 30 ml 08/26/16 09:34 Mylanta Oral Suspension - PO Q6H PRN DYSPEPSIA Albuterol/Ipratropium 1 amp 08/14/16 11:30 08/27/16 17:18 Duoneb - NEB Not Given Q6H DONNY Bisacodyl 10 mg 08/24/16 10:00 Dulcolax Suppository - RC PRN PRN CONSTIPATION Cholecalciferol 500 unit 08/13/16 10:00 08/27/16 09:29 Vitamin D3 - PO 500 unit DAILY DONNY Administration Dexamethasone 4 mg 08/20/16 18:00 08/27/16 17:13 Decadron - PO 4 mg Q6HPO DONNY Administration Docusate Sodium 100 mg 08/23/16 14:00 08/27/16 13:21 Colace - PO Not Given TID DONNY Enoxaparin Sodium 40 mg 08/23/16 10:00 08/27/16 09:28 Lovenox - SQ 40 mg DAILY DONNY Administration Fentanyl 1 patch 08/23/16 08:30 08/26/16 09:59 Duragesic 50mcg Patch - TD 08/30/16 08:27 1 patch Q72H DONNY Administration Insulin Aspart 1 vial 08/12/16 16:30 08/27/16 16:27 Novolog Vial Sliding Scale - SQ Not Given ACHS [facility] Protocol Insulin Detemir 3 units 08/27/16 10:00 08/27/16 13:18 Levemir Vial SQ Not Given BID DONNY Miscellaneous 1 each 08/23/16 08:27 08/26/16 10:07 Duragesic Patch Waste TD 1 each PRN PRN Administration PAIN Morphine Sulfate 4 mg 08/23/16 08:28 08/27/16 09:28 Morphine Injection - IVPUSH 4 mg Q4H PRN Administration PAIN Ondansetron HCl 4 mg 08/12/16 14:57 Zofran Injection IVPB Q4H PRN NAUSEA Pantoprazole Sodium 40 mg 08/26/16 10:00 08/27/16 09:29 Protonix - PO 40 mg BID DONNY Administration Polyethylene Glycol 17 gm 08/14/16 11:30 08/27/16 09:28 Miralax (For Daily Use) - PO 17 grams DAILY DONNY Administration Senna 2 tab 08/12/16 22:00 08/26/16 21:16 Senna - PO 2 tab HS DONNY Administration Impression: Metastaic breast ca Bone Mets S/P Faslodex- 500 mg administered Cord compression Pain management Hypercalcemia DM DVT prophylaxis Plan: Continue RT Received Faslodex Will need to check on when last given zometa Begin oxycodone 15 mg q 4 h prn breakthrough
[2016-08-27] MEDS ORDERED: oxyCODONE HCL 5 MG TABLET PO PRN (17:25)
[2016-08-27] MEDS: SENNOSIDES 8.6MG TABLET (FP) PO SCH (21:26)
[2016-08-28] MEDS: ALBUTEROL SO4 2.5/IPRATROPIUM 0.5 INH SOL 3 ML VIAL.NEB. NEB SCH ×4 (05:18→23:14)
[2016-08-28] MEDS: DEXAMETHASONE 4 MG TABLET (FP) PO SCH ×3 (06:21→21:16)
[2016-08-28] MEDS: INSULIN SLIDING SCALE (NOVOLOG) 1 VIAL SQ SCH ×4 (06:22→21:15)
[2016-08-28] MEDS: DOCUSATE SODIUM 100 MG CAPSULE (FP) PO SCH ×3 (06:22→21:08)
[2016-08-28 09:04] LABS: MCH 26.4 pg (25.7-33.7); MCHC 32.7 g/dl (32.0-36.0); MEAN CELL VOLUME 80.8 fl (80-96); MEAN PLT VOLUME 8.4 fl (7.5-11.1); PLATELET COUNT 207 K/MM3 (134-434); RDW 15.8 % (11.6-15.6); WHITE BLOOD COUNT 13.7 K/mm3 (4.0-10.0)
--- NOTE | 2016-08-28 09:53 | PN ---
Progress Note (short form) - Note Progress Note: SUBJECTIVE: The patient was seen and examined at the bedside, she is denying any pain now. She is still refusing soft collar. Radiation therapy #6 yesterday, will resume on Tuesday Current Medications Generic Name Dose Route Start Last Admin Trade Name Freq PRN Reason Stop Dose Admin Acetaminophen 650 mg 08/12/16 14:57 08/14/16 13:56 Tylenol - PO 650 mg Q4H PRN Administration FEVER OR PAIN Al Hydroxide/Mg Hydroxide 30 ml 08/26/16 09:34 Mylanta Oral Suspension - PO Q6H PRN DYSPEPSIA Albuterol/Ipratropium 1 amp 08/14/16 11:30 08/28/16 05:18 Duoneb - NEB 1 amp Q6H DONNY Administration Bisacodyl 10 mg 08/24/16 10:00 Dulcolax Suppository - RC PRN PRN CONSTIPATION Cholecalciferol 500 unit 08/13/16 10:00 08/27/16 09:29 Vitamin D3 - PO 500 unit DAILY DONNY Administration Dexamethasone 4 mg 08/27/16 22:00 08/28/16 06:21 Decadron - PO 4 mg TID DONNY Administration Docusate Sodium 100 mg 08/23/16 14:00 08/28/16 06:22 Colace - PO 100 mg TID DONNY Administration Enoxaparin Sodium 40 mg 08/23/16 10:00 08/27/16 09:28 Lovenox - SQ 40 mg DAILY DONNY Administration Fentanyl 1 patch 08/23/16 08:30 08/26/16 09:59 Duragesic 50mcg Patch - TD 08/30/16 08:27 1 patch Q72H DONNY Administration Insulin Aspart 1 vial 08/12/16 16:30 08/28/16 06:22 Novolog Vial Sliding Scale - SQ Not Given ACHS [facility] Protocol Insulin Detemir 3 units 08/27/16 10:00 08/27/16 21:25 Levemir Vial SQ 3 units BID DONNY Administration Miscellaneous 1 each 08/23/16 08:27 08/26/16 10:07 Duragesic Patch Waste TD 1 each PRN PRN Administration PAIN Morphine Sulfate 4 mg 08/23/16 08:28 08/27/16 09:28 Morphine Injection - IVPUSH 4 mg Q4H PRN Administration PAIN Ondansetron HCl 4 mg 08/12/16 14:57 Zofran Injection IVPB Q4H PRN NAUSEA Oxycodone HCl 15 mg 08/27/16 17:25 Roxicodone - PO Q4H PRN PAIN Pantoprazole Sodium 40 mg 08/26/16 10:00 08/27/16 21:26 Protonix - PO 40 mg BID DONNY Administration Polyethylene Glycol 17 gm 08/14/16 11:30 08/27/16 09:28 Miralax (For Daily Use) - PO 17 grams DAILY DONNY Administration Senna 2 tab 08/12/16 22:00 08/27/16 21:26 Senna - PO 2 tab HS DONNY Administration OBJECTIVE: Vital Signs Period Temp Pulse Resp BP Sys/Cash Pulse Ox Last 24 Hr 97.7 F-98.3 F 93-96 20-22 142-146/78-98 97 Physical Exam: General: NAD, A&Ox3, radiation markings on right arm and neck HEENT: Poor dentition Breast: Right breast mass, L breast with retraction and skin changes Lungs: CTA bilaterally Heart: RRR, S1S2, +murmur Abd: Soft, non-tender, non-distended. Normoactive bowel sounds Ext: Warm, well-perfused. Able to move all toes. Right shoulder decreased ROM, tenderness CBCD WBC 13.7 K/mm3 (4.0-10.0) H 08/28/16 07:45 RBC 4.21 M/mm3 (3.60-5.2) 08/28/16 07:45 Hgb 11.1 GM/dL (10.7-15.3) 08/28/16 07:45 Hct 34.1 % (32.4-45.2) 08/28/16 07:45 MCV 80.8 fl (80-96) 08/28/16 07:45 MCHC 32.7 g/dl (32.0-36.0) 08/28/16 07:45 RDW 15.8 % (11.6-15.6) H 08/28/16 07:45 Plt Count 207 K/MM3 (134-434) 08/28/16 07:45 MPV 8.4 fl (7.5-11.1) 08/28/16 07:45 CMP Sodium 138 mmol/L (136-145) 08/27/16 07:15 Potassium 4.5 mmol/L (3.5-5.1) 08/27/16 07:15 Chloride 101 mmol/L (98-107) 08/27/16 07:15 Carbon Dioxide 32 mmol/L (21-32) 08/27/16 07:15 Anion Gap 5 (8-16) L 08/27/16 07:15 BUN 34 mg/dL (7-18) H 08/27/16 07:15 Creatinine 0.5 mg/dL (0.55-1.02) L 08/27/16 07:15 Creat Clearance w eGFR > 60 (>60) 08/27/16 07:15 Random Glucose 91 mg/dL (74-106) D 08/27/16 07:15 Calcium 9.1 mg/dL (8.5-10.1) 08/27/16 07:15 Total Bilirubin 0.6 mg/dL (0.2-1.0) 08/27/16 07:15 AST 49 U/L (15-37) H 08/27/16 07:15 ALT 26 U/L (12-78) 08/27/16 07:15 Alkaline Phosphatase 352 U/L (45-117) H 08/27/16 07:15 Total Protein 6.9 g/dl (6.4-8.2) 08/27/16 07:15 Albumin 3.1 g/dl (3.4-5.0) L 08/27/16 07:15 Microbiology 08/14/16 13:20 Urine - Urine Clean Catch Urine Culture - Final NO GROWTH OBTAINED Radiology: - MRI with extensive diffuse bony metastases are seen in the cervicothoracic spine. Extensive pathological bone marrow replacement is seen in C5,C6,C7. Compressed C6 vertebral body with retopulsion. Cord compression at the level of C5-C6 - MRI lumbar: diffuse bony metastatic neoplasm disease. Minimal to mild ventral cortical buckling of the upper sacrum at the S2 level consistent with nondisplaced pathologic fracture. A small amount of epidural soft tissue neoplastic disease is seen along the left posterolateral aspect of the L4 vertebral body with resultant mild thecal sac indentation Assessment: This is a 80 year old female with PMHx of metastatic breast cancer, anemia, NIDDM, who presented to the ED with increased diffuse pain, weakness, hypercalcemia and was admitted for further evaluation and management of her condition. Plan: 1) Oncology: Metastatic breast cancer with diffuse skeletal and spine mets complicated by cord compression on C5-6 - Continue Decadron 4mg po tid, taper per oncology - Continue Fentanyl patch increased to 50mcg on 08/24 - Continue Oxycodone prn for breakthrough pain - Continue radiation, #6 on 08/27, Lumbar spine added on 08/27 - Appreciate neurosurgery consult - Appreciate oncology consult 3) Heme: Anemia 2/2 chronic illness - Continue ferrous sulfate 4) GI: Constipation - Continue Miralax, Colace, Senna, Doculax suppository - Last bowel movement 08/26 5) Endocrine: NIDDM - Changed Levemir to 3u sq bid (patient with low glucose in AM and hyperglycemia in PM) - BGM ACHS - ISS ACHS 6) F/E/N: - Monitor electrolytes - Diabetic diet 7) Prophylaxis: - Lovenox 40mg sq daily - Reevaluation from ortho for PT recommendations 8) Dispo: - Requires continued inpatient care CODE STATUS: FULL CODE Visit type - Emergency Visit Emergency Visit: Yes ED Registration Date: 08/12/16 Care time: The patient presented to the Emergency Department on the above date and was hospitalized for further evaluation of their emergent condition. - New Patient This patient is new to me today: No - Critical Care Critical Care patient: No
[2016-08-28] MEDS: POLYETHYLENE GLYCOL 3350 119 GM BTL PO SCH (10:12)
[2016-08-28] MEDS: ENOXAPARIN NA (PORCINE) 40 MG/0.4 ML DISP.SYRIN SQ SCH (10:17)
[2016-08-28] MEDS: CHOLECALCIFEROL (VITAMIN D3) 400 UNIT TABLET (FP) PO SCH (10:17)
[2016-08-28] MEDS: INSULIN DETEMIR 100 UNITS/ML MDV SQ SCH ×2 (10:17→21:12)
[2016-08-28] MEDS: PANTOPRAZOLE 40 MG TABLET (FP) PO SCH ×2 (10:17→21:15)
[2016-08-28] MEDS ORDERED: INSULIN (NOVOLOG) ASPART 100 UNITS/ML 10ML VIAL SQ ONE (11:30)
--- NOTE | 2016-08-28 14:14 | PN ---
Progress Note (short form) - Note Progress Note: S: Patient seen and examined at bedside today. She states she is not in pain today. Had a BM yesterday and is comfortable. Last Vital Signs Temp Pulse Resp BP Pulse Ox 98.0 F 98 H 20 146/65 97 08/28/16 13:46 08/28/16 13:46 08/28/16 13:46 08/28/16 10:11 08/27/16 10:53 Physical exam : HEENT: MALI, EOM Intact Oropharynx: No thrush, No mucositis Breasts: right breast mass; left breast central areolar mass with pagetoid changes Cor: RSR, systolic murmur Lungs:decreased breath sounds bilaterally Abd: Soft, Normal bowel sounds, No organomegaly Ext:No significant edema Skin: No rashes, Integument intact, has markings for radiation CBC, BMP 08/28/16 07:45 08/28/16 11:40 Current meds : Current Medications Generic Name Dose Route Start Last Admin Trade Name Freq PRN Reason Stop Dose Admin Acetaminophen 650 mg 08/12/16 14:57 08/14/16 13:56 Tylenol - PO 650 mg Q4H PRN Administration FEVER OR PAIN Al Hydroxide/Mg Hydroxide 30 ml 08/26/16 09:34 Mylanta Oral Suspension - PO Q6H PRN DYSPEPSIA Albuterol/Ipratropium 1 amp 08/14/16 11:30 08/28/16 11:47 Duoneb - NEB 1 amp Q6H DONNY Administration Bisacodyl 10 mg 08/24/16 10:00 Dulcolax Suppository - RC PRN PRN CONSTIPATION Cholecalciferol 500 unit 08/13/16 10:00 08/28/16 10:17 Vitamin D3 - PO 500 unit DAILY DONNY Administration Dexamethasone 4 mg 08/27/16 22:00 08/28/16 06:21 Decadron - PO 4 mg TID DONNY Administration Docusate Sodium 100 mg 08/23/16 14:00 08/28/16 06:22 Colace - PO 100 mg TID DONNY Administration Enoxaparin Sodium 40 mg 08/23/16 10:00 08/28/16 10:17 Lovenox - SQ 40 mg DAILY DONNY Administration Fentanyl 1 patch 08/23/16 08:30 08/26/16 09:59 Duragesic 50mcg Patch - TD 08/30/16 08:27 1 patch Q72H DONNY Administration Insulin Aspart 1 vial 08/12/16 16:30 08/28/16 12:17 Novolog Vial Sliding Scale - SQ Not Given ACHS [facility] Protocol Insulin Detemir 3 units 08/27/16 10:00 08/28/16 10:17 Levemir Vial SQ 3 units BID DONNY Administration Miscellaneous 1 each 08/23/16 08:27 08/26/16 10:07 Duragesic Patch Waste TD 1 each PRN PRN Administration PAIN Morphine Sulfate 4 mg 08/23/16 08:28 08/27/16 09:28 Morphine Injection - IVPUSH 4 mg Q4H PRN Administration PAIN Ondansetron HCl 4 mg 08/12/16 14:57 Zofran Injection IVPB Q4H PRN NAUSEA Oxycodone HCl 15 mg 08/27/16 17:25 Roxicodone - PO Q4H PRN PAIN Pantoprazole Sodium 40 mg 08/26/16 10:00 08/28/16 10:17 Protonix - PO 40 mg BID DONNY Administration Polyethylene Glycol 17 gm 08/14/16 11:30 08/28/16 10:12 Miralax (For Daily Use) - PO Not Given DAILY DONNY Senna 2 tab 08/12/16 22:00 08/27/16 21:26 Senna - PO 2 tab HS DONNY Administration A/P : 80 y/o female with metastatic breast cancer with extensive bony metastatsis now with cord compression at L4, C6 and multiple vertebrae replaced with mets -continue with RT treatments -On decadron 4 mg q8h -received a dose of faslodex yesterday -pain appears well controlled currently with fentanyl patch, morphine IV and PO oxycodone -DVT prophylaxis -Supportive care
[2016-08-28] MEDS: SENNOSIDES 8.6MG TABLET (FP) PO SCH (21:08)
[2016-08-28] MEDS ORDERED: INSULIN (NOVOLOG) ASPART 100 UNITS/ML 10ML VIAL ONE (21:14)
[2016-08-29] MEDS: DOCUSATE SODIUM 100 MG CAPSULE (FP) PO SCH ×3 (06:08→21:21)
[2016-08-29] MEDS: INSULIN SLIDING SCALE (NOVOLOG) 1 VIAL SQ SCH ×4 (06:09→21:20)
[2016-08-29] MEDS: DEXAMETHASONE 4 MG TABLET (FP) PO SCH ×3 (06:11→21:20)
[2016-08-29] MEDS: ALBUTEROL SO4 2.5/IPRATROPIUM 0.5 INH SOL 3 ML VIAL.NEB. NEB SCH ×3 (06:28→17:15)
[2016-08-29 08:46] LABS: MCH 26.6 pg (25.7-33.7); MCHC 32.5 g/dl (32.0-36.0); MEAN CELL VOLUME 81.9 fl (80-96); MEAN PLT VOLUME 8.5 fl (7.5-11.1); PLATELET COUNT 197 K/MM3 (134-434); RDW 16.1 % (11.6-15.6)
[2016-08-29] MEDS: fentaNYL 50mcg/hr PATCH.TD72 TD SCH (08:47)
[2016-08-29] MEDS: FENTANYL PATCH WASTE TD PRN (08:48)
[2016-08-29 09:27] LABS: ALBUMIN 2.8 g/dl (3.4-5.0); ANION GAP 6 (8-16); CO2 32 mmol/L (21-32); CREATININE 0.4 mg/dL (0.55-1.02); GLUCOSE,RANDOM 163 mg/dL (74-106); SGOT/AST 49 U/L (15-37); SGPT/ALT 25 U/L (12-78)
[2016-08-29 09:30] LABS: ALK PHOS 320 U/L (45-117); BILIRUBIN,TOTAL 0.7 mg/dL (0.2-1.0); TOT PROT 6.2 g/dl (6.4-8.2)
--- NOTE | 2016-08-29 10:58 | PN ---
Progress Note (short form) - Note Progress Note: SUBJECTIVE: The patient was seen and examined at the bedside, she is denying any pain now. She is still refusing soft collar. Resume radiation tomorrow Current Medications Generic Name Dose Route Start Last Admin Trade Name Freq PRN Reason Stop Dose Admin Acetaminophen 650 mg 08/12/16 14:57 08/14/16 13:56 Tylenol - PO 650 mg Q4H PRN Administration FEVER OR PAIN Al Hydroxide/Mg Hydroxide 30 ml 08/26/16 09:34 Mylanta Oral Suspension - PO Q6H PRN DYSPEPSIA Albuterol/Ipratropium 1 amp 08/14/16 11:30 08/29/16 06:28 Duoneb - NEB 1 amp Q6H DONNY Administration Bisacodyl 10 mg 08/24/16 10:00 Dulcolax Suppository - RC PRN PRN CONSTIPATION Cholecalciferol 500 unit 08/13/16 10:00 08/28/16 10:17 Vitamin D3 - PO 500 unit DAILY DONNY Administration Dexamethasone 4 mg 08/27/16 22:00 08/29/16 06:11 Decadron - PO 4 mg TID DONNY Administration Docusate Sodium 100 mg 08/23/16 14:00 08/29/16 06:08 Colace - PO Not Given TID DONNY Enoxaparin Sodium 40 mg 08/23/16 10:00 08/28/16 10:17 Lovenox - SQ 40 mg DAILY DONNY Administration Fentanyl 1 patch 08/23/16 08:30 08/29/16 08:47 Duragesic 50mcg Patch - TD 08/30/16 08:27 1 patch Q72H DONNY Administration Insulin Aspart 1 vial 08/12/16 16:30 08/29/16 06:09 Novolog Vial Sliding Scale - SQ Not Given ACHS [facility] Protocol Insulin Detemir 3 units 08/27/16 10:00 08/28/16 21:12 Levemir Vial SQ 3 units BID DONNY Administration Miscellaneous 1 each 08/23/16 08:27 08/29/16 08:48 Duragesic Patch Waste TD 1 each PRN PRN Administration PAIN Morphine Sulfate 4 mg 08/23/16 08:28 08/27/16 09:28 Morphine Injection - IVPUSH 4 mg Q4H PRN Administration PAIN Ondansetron HCl 4 mg 08/12/16 14:57 Zofran Injection IVPB Q4H PRN NAUSEA Oxycodone HCl 15 mg 08/27/16 17:25 Roxicodone - PO Q4H PRN PAIN Pantoprazole Sodium 40 mg 08/26/16 10:00 08/28/16 21:15 Protonix - PO 40 mg BID DONNY Administration Polyethylene Glycol 17 gm 08/14/16 11:30 08/28/16 10:12 Miralax (For Daily Use) - PO Not Given DAILY DONNY Senna 2 tab 08/12/16 22:00 08/28/16 21:08 Senna - PO Not Given HS DONNY OBJECTIVE: Vital Signs Period Temp Pulse Resp BP Sys/Cash Pulse Ox Last 24 Hr 97.6 F-98.1 F 84-100 20-20 140-147/64-84 98 Physical Exam: General: NAD, A&Ox3, radiation markings on right arm and neck HEENT: Poor dentition Breast: Right breast mass, L breast with retraction and skin changes Lungs: CTA bilaterally Heart: RRR, S1S2, +murmur Abd: Soft, non-tender, non-distended. Normoactive bowel sounds Ext: Warm, well-perfused. Able to move all toes. Right shoulder decreased ROM, tenderness CBCD WBC 11.0 K/mm3 (4.0-10.0) H 08/29/16 07:45 RBC 4.20 M/mm3 (3.60-5.2) 08/29/16 07:45 Hgb 11.2 GM/dL (10.7-15.3) 08/29/16 07:45 Hct 34.4 % (32.4-45.2) 08/29/16 07:45 MCV 81.9 fl (80-96) 08/29/16 07:45 MCHC 32.5 g/dl (32.0-36.0) 08/29/16 07:45 RDW 16.1 % (11.6-15.6) H 08/29/16 07:45 Plt Count 197 K/MM3 (134-434) 08/29/16 07:45 MPV 8.5 fl (7.5-11.1) 08/29/16 07:45 CMP Sodium 140 mmol/L (136-145) 08/29/16 07:45 Potassium 4.6 mmol/L (3.5-5.1) 08/29/16 07:45 Chloride 102 mmol/L (98-107) 08/29/16 07:45 Carbon Dioxide 32 mmol/L (21-32) 08/29/16 07:45 Anion Gap 6 (8-16) L 08/29/16 07:45 BUN 26 mg/dL (7-18) H D 08/29/16 07:45 Creatinine 0.4 mg/dL (0.55-1.02) L 08/29/16 07:45 Creat Clearance w eGFR > 60 (>60) 08/29/16 07:45 Random Glucose 163 mg/dL (74-106) H D 08/29/16 07:45 Calcium 8.0 mg/dL (8.5-10.1) L 08/29/16 07:45 Total Bilirubin 0.7 mg/dL (0.2-1.0) 08/29/16 07:45 AST 49 U/L (15-37) H 08/29/16 07:45 ALT 25 U/L (12-78) 08/29/16 07:45 Alkaline Phosphatase 320 U/L (45-117) H 08/29/16 07:45 Total Protein 6.2 g/dl (6.4-8.2) L 08/29/16 07:45 Albumin 2.8 g/dl (3.4-5.0) L 08/29/16 07:45 Microbiology 08/14/16 13:20 Urine - Urine Clean Catch Urine Culture - Final NO GROWTH OBTAINED Radiology: - MRI with extensive diffuse bony metastases are seen in the cervicothoracic spine. Extensive pathological bone marrow replacement is seen in C5,C6,C7. Compressed C6 vertebral body with retopulsion. Cord compression at the level of C5-C6 - MRI lumbar: diffuse bony metastatic neoplasm disease. Minimal to mild ventral cortical buckling of the upper sacrum at the S2 level consistent with nondisplaced pathologic fracture. A small amount of epidural soft tissue neoplastic disease is seen along the left posterolateral aspect of the L4 vertebral body with resultant mild thecal sac indentation Assessment: This is a 80 year old female with PMHx of metastatic breast cancer, anemia, NIDDM, who presented to the ED with increased diffuse pain, weakness, hypercalcemia and was admitted for further evaluation and management of her condition. Plan: 1) Oncology: Metastatic breast cancer with diffuse skeletal and spine mets complicated by cord compression on C5-6 - Continue Decadron 4mg po tid, taper per oncology - Continue Fentanyl patch increased to 50mcg on 08/24 - Continue Oxycodone prn for breakthrough pain - Continue radiation, #6 on 08/27, Lumbar spine added on 08/27 - Appreciate neurosurgery consult - Appreciate oncology consult 3) Heme: Anemia 2/2 chronic illness - Continue ferrous sulfate 4) GI: Constipation - Continue Miralax, Colace, Senna, Doculax suppository - Last bowel movement 08/28 5) Endocrine: NIDDM - Changed Levemir to 3u sq bid (patient with low glucose in AM and hyperglycemia in PM) - BGM ACHS - ISS ACHS 6) F/E/N: - Monitor electrolytes - Diabetic diet 7) Prophylaxis: - Lovenox 40mg sq daily - Reevaluation from ortho for PT recommendations 8) Dispo: - Requires continued inpatient care CODE STATUS: FULL CODE Visit type - Emergency Visit Emergency Visit: Yes ED Registration Date: 08/12/16 Care time: The patient presented to the Emergency Department on the above date and was hospitalized for further evaluation of their emergent condition. - New Patient This patient is new to me today: No - Critical Care Critical Care patient: No
[2016-08-29] MEDS: INSULIN DETEMIR 100 UNITS/ML MDV SQ SCH ×2 (11:25→21:16)
[2016-08-29] MEDS: PANTOPRAZOLE 40 MG TABLET (FP) PO SCH ×2 (11:26→21:20)
[2016-08-29] MEDS: CHOLECALCIFEROL (VITAMIN D3) 400 UNIT TABLET (FP) PO SCH (11:26)
[2016-08-29] MEDS: ENOXAPARIN NA (PORCINE) 40 MG/0.4 ML DISP.SYRIN SQ SCH (11:28)
[2016-08-29] MEDS: POLYETHYLENE GLYCOL 3350 119 GM BTL PO SCH (11:32)
--- NOTE | 2016-08-29 11:50 | PN ---
Progress Note (short form) - Note Progress Note: Oncology Follow-up Note S : Patient a little upset about the fact that she has tingling in bilateral hands and unable to use her right hand to grasp her cup etc. Agreeable to continuing radiation during the week. Last Vital Signs Temp Pulse Resp BP Pulse Ox 97.6 F 82 20 147/64 93 L 08/29/16 09:37 08/29/16 11:04 08/29/16 09:37 08/29/16 09:37 08/29/16 11:04 Physical exam : HEENT: MALI, EOM Intact Oropharynx: No thrush, No mucositis Breasts: right breast mass; left breast central areolar mass with pagetoid changes Cor: RSR, systolic murmur Lungs:decreased breath sounds bilaterally Abd: Soft, Normal bowel sounds, No organomegaly Ext:No significant edema Skin: No rashes, Integument intact, has markings for radiation CBC, BMP 08/29/16 07:45 08/29/16 07:45 Current Medications Generic Name Dose Route Start Last Admin Trade Name Freq PRN Reason Stop Dose Admin Acetaminophen 650 mg 08/12/16 14:57 08/14/16 13:56 Tylenol - PO 650 mg Q4H PRN Administration FEVER OR PAIN Al Hydroxide/Mg Hydroxide 30 ml 08/26/16 09:34 Mylanta Oral Suspension - PO Q6H PRN DYSPEPSIA Albuterol/Ipratropium 1 amp 08/14/16 11:30 08/29/16 11:04 Duoneb - NEB 1 amp Q6H DONNY Administration Bisacodyl 10 mg 08/24/16 10:00 Dulcolax Suppository - RC PRN PRN CONSTIPATION Cholecalciferol 500 unit 08/13/16 10:00 08/29/16 11:26 Vitamin D3 - PO 500 unit DAILY DONNY Administration Dexamethasone 4 mg 08/27/16 22:00 08/29/16 06:11 Decadron - PO 4 mg TID DONNY Administration Docusate Sodium 100 mg 08/23/16 14:00 08/29/16 06:08 Colace - PO Not Given TID DONNY Enoxaparin Sodium 40 mg 08/23/16 10:00 08/29/16 11:28 Lovenox - SQ 40 mg DAILY DONNY Administration Fentanyl 1 patch 08/23/16 08:30 08/29/16 08:47 Duragesic 50mcg Patch - TD 08/30/16 08:27 1 patch Q72H DONNY Administration Insulin Aspart 1 vial 08/12/16 16:30 08/29/16 06:09 Novolog Vial Sliding Scale - SQ Not Given ACHS [facility] Protocol Insulin Detemir 3 units 08/27/16 10:00 08/29/16 11:25 Levemir Vial SQ 3 units BID DONNY Administration Miscellaneous 1 each 08/23/16 08:27 08/29/16 08:48 Duragesic Patch Waste TD 1 each PRN PRN Administration PAIN Morphine Sulfate 4 mg 08/23/16 08:28 08/27/16 09:28 Morphine Injection - IVPUSH 4 mg Q4H PRN Administration PAIN Ondansetron HCl 4 mg 08/12/16 14:57 Zofran Injection IVPB Q4H PRN NAUSEA Oxycodone HCl 15 mg 08/27/16 17:25 Roxicodone - PO Q4H PRN PAIN Pantoprazole Sodium 40 mg 08/26/16 10:00 08/29/16 11:26 Protonix - PO 40 mg BID DONNY Administration Polyethylene Glycol 17 gm 08/14/16 11:30 08/29/16 11:32 Miralax (For Daily Use) - PO Not Given DAILY [facility] Senna 2 tab 08/12/16 22:00 08/28/16 21:08 Senna - PO Not Given HS [facility] A/P : 80 y/o female with metastatic breast cancer with extensive bony metastatsis now with cord compression at L4, C6 and multiple vertebrae replaced with mets -continue with RT treatments, due for treatment #7 today -On decadron 4 mg q8h -received a dose of faslodex on 08/27 -pain appears well controlled currently with fentanyl patch, morphine IV and PO oxycodone -DVT prophylaxis -Supportive care
[2016-08-29] MEDS ORDERED: INSULIN (NOVOLOG) ASPART 100 UNITS/ML 10ML VIAL ONE ×2 (12:01→21:19)
[2016-08-29] MEDS ORDERED: INSULIN (NOVOLOG) ASPART 100 UNITS/ML 10ML VIAL SQ ONE (12:09)
[2016-08-29] MEDS: morphine CARPU-JECT 4 MG/1 ML DISP.SYRIN IVPUSH PRN (16:54)
[2016-08-29] MEDS: SENNOSIDES 8.6MG TABLET (FP) PO SCH (21:20)
[2016-08-30] MEDS: ALBUTEROL SO4 2.5/IPRATROPIUM 0.5 INH SOL 3 ML VIAL.NEB. NEB SCH ×5 (01:11→22:30)
[2016-08-30] MEDS: INSULIN SLIDING SCALE (NOVOLOG) 1 VIAL SQ SCH ×4 (06:00→21:00)
[2016-08-30] MEDS: DEXAMETHASONE 4 MG TABLET (FP) PO SCH ×3 (06:04→21:08)
[2016-08-30] MEDS: DOCUSATE SODIUM 100 MG CAPSULE (FP) PO SCH ×3 (06:04→21:09)
--- NOTE | 2016-08-30 09:07 | PN ---
Progress Note (short form) - Note Progress Note: Ortho Pt seen and examined. having RT to right humerus non-tender over right midhaft humerus, full ROM, nvi a/p PT for right shoulder/UE as tolerated continue RT to right humerus will follow d/w Dr. Gonzalez
[2016-08-30] MEDS ORDERED: PT OWN MED DRAWER 7, Y5N ONE (09:34)
[2016-08-30] MEDS: POLYETHYLENE GLYCOL 3350 119 GM BTL PO SCH (09:38)
[2016-08-30] MEDS: INSULIN DETEMIR 100 UNITS/ML MDV SQ SCH ×2 (09:38→21:06)
[2016-08-30] MEDS: PANTOPRAZOLE 40 MG TABLET (FP) PO SCH ×2 (09:38→21:26)
[2016-08-30] MEDS: morphine CARPU-JECT 4 MG/1 ML DISP.SYRIN IVPUSH PRN (09:40)
[2016-08-30] MEDS: CHOLECALCIFEROL (VITAMIN D3) 400 UNIT TABLET (FP) PO SCH (09:45)
[2016-08-30] MEDS ORDERED: INSULIN DETEMIR 100 UNITS/ML MDV SQ ONE (09:57)
[2016-08-30] MEDS ORDERED: INSULIN (NOVOLOG) ASPART 100 UNITS/ML 10ML VIAL ONE (11:14)
[2016-08-30] MEDS: ENOXAPARIN NA (PORCINE) 40 MG/0.4 ML DISP.SYRIN SQ SCH (14:13)
--- NOTE | 2016-08-30 14:50 | PN ---
Progress Note (short form) - Note Progress Note: Radiation Oncology Pain fairly well controlled on analgesics. Exacerbation w arm extension. No new neurologic symptoms on decadron taper to 4q8h. s/p faslodex Plts normal but slowly trending down, monitor CBC. Completed RT to humerus, total dose 20Gy Tolerating RT to C-spine and LS spine, 3 fractions remaining. Will continue tomorrow. Cont neuro monitoring, PT as tolerated, pain mgt.
--- NOTE | 2016-08-30 17:49 | PN ---
Physical Exam: SUBJECTIVE: Patient seen and examined. She feels she needs a booster seat in bed , she wants to try and sit in chair tomorrow. OBJECTIVE: Vital Signs Period Temp Pulse Resp BP Sys/Cash Pulse Ox Last 24 Hr 97.5 F-98.4 F 78-96 20-20 148-168/76-85 97-99 PE Neuro: alert, awake, cn 2-12intact, RUE 2/5 motor, cannot move 4th and 5th digit Pulm: basilar crackles +NC Breast: R breast mass 2-3oclock, L breast w/ cutaneous changes, retracted CV: s1 s2 rrr +murmur Abd: s nt nd +bs Ext: RUE weakness motor 2/5, LUE weakness Laboratory Results - last 24 hr 08/30/16 08/30/16 08/30/16 05:58 11:18 16:53 POC Glucometer 76 315 140 Active Medications Generic Name Dose Route Start Last Admin Trade Name Freq PRN Reason Stop Dose Admin Acetaminophen 650 mg 08/12/16 14:57 08/14/16 13:56 Tylenol - PO 650 mg Q4H PRN Administration FEVER OR PAIN Al Hydroxide/Mg Hydroxide 30 ml 08/26/16 09:34 Mylanta Oral Suspension - PO Q6H PRN DYSPEPSIA Albuterol/Ipratropium 1 amp 08/14/16 11:30 08/30/16 17:25 Duoneb - NEB Not Given Q6H DONNY Bisacodyl 10 mg 08/24/16 10:00 Dulcolax Suppository - RC PRN PRN CONSTIPATION Cholecalciferol 500 unit 08/13/16 10:00 08/30/16 09:45 Vitamin D3 - PO 500 unit DAILY DONNY Administration Dexamethasone 4 mg 08/27/16 22:00 08/30/16 14:13 Decadron - PO 4 mg TID DONNY Administration Docusate Sodium 100 mg 08/23/16 14:00 08/30/16 14:13 Colace - PO Not Given TID DONNY Insulin Aspart 1 vial 08/12/16 16:30 08/30/16 16:54 Novolog Vial Sliding Scale - SQ Not Given ACHS [facility] Protocol Insulin Detemir 3 units 08/27/16 10:00 08/30/16 09:38 Levemir Vial SQ 3 units BID DONNY Administration Miscellaneous 1 each 08/23/16 08:27 08/29/16 08:48 Duragesic Patch Waste TD 1 each PRN PRN Administration PAIN Morphine Sulfate 4 mg 08/23/16 08:28 08/30/16 09:40 Morphine Injection - IVPUSH 4 mg Q4H PRN Administration PAIN Ondansetron HCl 4 mg 08/12/16 14:57 Zofran Injection IVPB Q4H PRN NAUSEA Pantoprazole Sodium 40 mg 08/26/16 10:00 08/30/16 09:38 Protonix - PO 40 mg BID DONNY Administration Polyethylene Glycol 17 gm 08/14/16 11:30 08/30/16 09:38 Miralax (For Daily Use) - PO 17 grams DAILY DONNY Administration Senna 2 tab 08/12/16 22:00 08/29/16 21:20 Senna - PO 2 tab HS DONNY Administration Assessment: 80 year old female with PMHx of metastatic breast cancer, anemia, NIDDM, admitted with increased diffuse pain, weakness, hypercalcemia. Plan: 1. Metastatic breast cancer with diffuse skeletal and multiple vertebrael mets complicated by cord compression on C5-6, L4 - On Decadron 4mg po tid, taper per oncology - Fentanyl patch increased to 50mcg on 08/24 - Morphine prn breakthrugh - Completed RT to R humerus today - Complete RT to C and LS spine 01/15 today - Discussed with Ortho, TABATHA Ugarte, pt is WBATto LS, no heavy lifting to RUE 2. Anemia 2/2 chronic illness - Continue ferrous sulfate 3. Constipation - Continue Miralax, Colace, Senna, Doculax suppository - Last bowel movement 08/28 4. DM II - Levemir 3 units sq bid (patient with low glucose in AM and hyperglycemia in PM ) - BGM, ISS ACHS 5. PPX - Lovenox 40mg sq daily - Reevaluation from ortho for PT recommendations Dispo: - Requires continued inpatient care CODE STATUS: FULL CODE Visit type - Emergency Visit Emergency Visit: Yes ED Registration Date: 08/12/16 Care time: The patient presented to the Emergency Department on the above date and was hospitalized for further evaluation of their emergent condition. - New Patient This patient is new to me today: No - Critical Care Critical Care patient: No
[2016-08-30] MEDS: SENNOSIDES 8.6MG TABLET (FP) PO SCH (21:26)
--- NOTE | 2016-08-30 22:02 | HOSP ---
Subjective - Review of Symptoms Events since last encounter: Hospitalist Encounter Notified by RN that the patient reports pain to her throat since eating her lunch- turkey sandwich. Arrived to bedside, patient is alert and oriented speaking in full sentences without resp. distress Patient denies dysphagia, she is able to tolerate PO fluids, [place] ice and oral medications without incident. Will continue current regimen with monitoring Consider soft tissue neck if condition worsens HEENT: Yes: Sore Throat Physical Examination Vital Signs: Vital Signs Temperature 97.6 F 08/30/16 21:21 Pulse Rate 84 08/30/16 21:21 Respiratory Rate 20 08/30/16 21:21 Blood Pressure 150/85 08/30/16 21:21 O2 Sat by Pulse Oximetry (%) 99 08/30/16 11:21 Constitutional: Yes: Thin Neck: Yes: Supple, Tenderness, Other (radiation markings to right neck) Cardiovascular: Yes: Regular Rate and Rhythm, Murmur, S1, S2 Respiratory: Yes: Regular, Diminished (bases) Gastrointestinal: Yes: Normal Bowel Sounds, Soft Neurological: Yes: WNL, Alert, Oriented, Cran Nerves II-XII Intact Psychiatric: Yes: WNL, Alert, Oriented Labs: CBC, BMP 08/29/16 07:45 08/29/16 07:45 Current Medications Generic Name Dose Route Start Last Admin Trade Name Mahadq PRN Reason Stop Dose Admin Acetaminophen 650 mg 08/12/16 14:57 08/14/16 13:56 Tylenol - PO 650 mg Q4H PRN Administration FEVER OR PAIN Al Hydroxide/Mg Hydroxide 30 ml 08/26/16 09:34 Mylanta Oral Suspension - PO Q6H PRN DYSPEPSIA Albuterol/Ipratropium 1 amp 08/14/16 11:30 08/30/16 22:30 Duoneb - NEB 1 amp Q6H DONNY Administration Bisacodyl 10 mg 08/24/16 10:00 Dulcolax Suppository - RC PRN PRN CONSTIPATION Cholecalciferol 500 unit 08/13/16 10:00 08/30/16 09:45 Vitamin D3 - PO 500 unit DAILY DONNY Administration Dexamethasone 4 mg 08/27/16 22:00 08/30/16 21:08 Decadron - PO 4 mg TID DONNY Administration Docusate Sodium 100 mg 08/23/16 14:00 08/30/16 21:09 Colace - PO 100 mg TID DONNY Administration Insulin Aspart 1 vial 08/12/16 16:30 08/30/16 21:00 Novolog Vial Sliding Scale - SQ Not Given ACHS [facility] Protocol Insulin Detemir 3 units 08/27/16 10:00 08/30/16 21:06 Levemir Vial SQ 3 units BID DONNY Administration Miscellaneous 1 each 08/23/16 08:27 08/29/16 08:48 Duragesic Patch Waste TD 1 each PRN PRN Administration PAIN Morphine Sulfate 4 mg 08/23/16 08:28 08/30/16 09:40 Morphine Injection - IVPUSH 4 mg Q4H PRN Administration PAIN Ondansetron HCl 4 mg 08/12/16 14:57 Zofran Injection IVPB Q4H PRN NAUSEA Pantoprazole Sodium 40 mg 08/26/16 10:00 08/30/16 21:26 Protonix - PO 40 mg BID DONNY Administration Polyethylene Glycol 17 gm 08/14/16 11:30 08/30/16 09:38 Miralax (For Daily Use) - PO 17 grams DAILY DONNY Administration Senna 2 tab 08/12/16 22:00 08/30/16 21:26 Senna - PO 2 tab HS DONNY Administration Vital Signs - 24 hr 08/30/16 08/30/16 08/30/16 05:00 08:00 09:00 Temperature 97.6 F 97.5 F L Pulse Rate 81 96 H Respiratory 20 20 Rate Blood Pressure 148/76 150/76 O2 Sat by Pulse 97 Oximetry (%) 08/30/16 08/30/16 08/30/16 11:21 14:15 18:00 Temperature 98.4 F 97.4 F L Pulse Rate 78 84 81 Respiratory 20 20 Rate Blood Pressure 168/85 128/78 O2 Sat by Pulse 99 Oximetry (%) 08/30/16 08/30/16 21:00 21:21 Temperature 97.6 F Pulse Rate 84 Respiratory 20 Rate Blood Pressure 150/85 O2 Sat by Pulse 99 Oximetry (%)
--- NOTE | 2016-08-30 22:06 | PN ---
Progress Note (short form) - Note Progress Note: Patient seen and examined . No specific complaints AFVSS Cor: RSR, No murmurs, No gallops Lungs: diminished breasth sounds Abd: Soft, Normal bowel sounds, No organomegaly Ext:No significant edema Current Medications Acetaminophen (Tylenol -) 650 mg PO Q4H PRN PRN Reason: FEVER OR PAIN Last Admin: 08/14/16 13:56 Dose: 650 mg Al Hydroxide/Mg Hydroxide (Mylanta Oral Suspension -) 30 ml PO Q6H PRN PRN Reason: DYSPEPSIA Albuterol/Ipratropium (Duoneb -) 1 amp NEB Q6H [facility] Last Admin: 08/31/16 05:45 Dose: Not Given Bisacodyl (Dulcolax Suppository -) 10 mg RC PRN PRN PRN Reason: CONSTIPATION Cholecalciferol (Vitamin D3 -) 500 unit PO DAILY [facility] Last Admin: 08/30/16 09:45 Dose: 500 unit Dexamethasone (Decadron -) 4 mg PO TID [facility] Last Admin: 08/31/16 05:47 Dose: 4 mg Docusate Sodium (Colace -) 100 mg PO TID [facility] Last Admin: 08/31/16 05:47 Dose: 100 mg Insulin Aspart (Novolog Vial Sliding Scale -) 1 vial SQ ACHS [facility] PRN Reason: Protocol Last Admin: 08/31/16 06:17 Dose: 4 unit Insulin Detemir (Levemir Vial) 3 units SQ BID [facility] Last Admin: 08/30/16 21:06 Dose: 3 units Miscellaneous (Duragesic Patch Waste) 1 each TD PRN PRN PRN Reason: PAIN Last Admin: 08/29/16 08:48 Dose: 1 each Morphine Sulfate (Morphine Injection -) 4 mg IVPUSH Q4H PRN PRN Reason: PAIN Last Admin: 08/30/16 09:40 Dose: 4 mg Ondansetron HCl (Zofran Injection) 4 mg IVPB Q4H PRN PRN Reason: NAUSEA Pantoprazole Sodium (Protonix -) 40 mg PO BID [facility] Last Admin: 08/30/16 21:26 Dose: 40 mg Polyethylene Glycol (Miralax (For Daily Use) -) 17 gm PO DAILY [facility] Last Admin: 08/30/16 09:38 Dose: 17 grams Senna (Senna -) 2 tab PO HS [facility] Last Admin: 08/30/16 21:26 Dose: 2 tab Impression: Metastatic breast ca with extensive skeletal mets Spine CT with diffuse lytic mets, destruction of C-6 with retropulsion and L4 met with minimal extension into spine and neural impingement completed Rt to humerus. Getting RT to C and LS spine mild abdominal distention-- On 50mcg Q72h of fentanyl/morphine on miralax KUB--constipation
[2016-08-31] MEDS: ALBUTEROL SO4 2.5/IPRATROPIUM 0.5 INH SOL 3 ML VIAL.NEB. NEB SCH ×4 (05:45→23:15)
[2016-08-31] MEDS: DEXAMETHASONE 4 MG TABLET (FP) PO SCH ×3 (05:47→21:40)
[2016-08-31] MEDS: DOCUSATE SODIUM 100 MG CAPSULE (FP) PO SCH ×3 (05:47→21:40)
[2016-08-31] MEDS ORDERED: INSULIN (NOVOLOG) ASPART 100 UNITS/ML 10ML VIAL ONE ×2 (06:16→16:49)
[2016-08-31] MEDS: INSULIN SLIDING SCALE (NOVOLOG) 1 VIAL SQ SCH ×4 (06:17→21:34)
[2016-08-31 08:18] LABS: BASOPHIL 0.2 % (0-2.0); EOSINOPHIL 0.6 % (0-4.5); MCH 26.6 pg (25.7-33.7); MCHC 32.5 g/dl (32.0-36.0); MEAN CELL VOLUME 81.6 fl (80-96); MEAN PLT VOLUME 8.5 fl (7.5-11.1); NEUTROPHILS 90.3 % (42.8-82.8); PLATELET COUNT 170 K/MM3 (134-434); RDW 16.3 % (11.6-15.6)
[2016-08-31 08:57] LABS: ALBUMIN 2.7 g/dl (3.4-5.0); ALK PHOS 413 U/L (45-117); ANION GAP 8 (8-16); BILIRUBIN,TOTAL 0.6 mg/dL (0.2-1.0); CALCIUM 8.5 mg/dL (8.5-10.1); CO2 31 mmol/L (21-32); CREATININE 0.4 mg/dL (0.55-1.02); GLUCOSE,RANDOM 87 mg/dL (74-106); SGOT/AST 100 U/L (15-37); SGPT/ALT 165 U/L (12-78); TOT PROT 5.9 g/dl (6.4-8.2)
[2016-08-31] MEDS: CHOLECALCIFEROL (VITAMIN D3) 400 UNIT TABLET (FP) PO SCH (09:15)
[2016-08-31] MEDS: PANTOPRAZOLE 40 MG TABLET (FP) PO SCH (09:16)
[2016-08-31] MEDS: POLYETHYLENE GLYCOL 3350 119 GM BTL PO SCH (09:16)
[2016-08-31] MEDS: morphine CARPU-JECT 4 MG/1 ML DISP.SYRIN IVPUSH PRN (09:16)
[2016-08-31] MEDS: INSULIN DETEMIR 100 UNITS/ML MDV SQ SCH ×2 (09:30→21:34)
--- NOTE | 2016-08-31 12:03 | PN ---
Progress Note (short form) - Note Progress Note: Radiation Oncology Episode of throat pain, probably RT-related esphagitis. No new neurologic symptoms on decadron taper to 4q8h. s/p faslodex Plts normal but slowly trending down, monitor CBC. Completed RT to humerus, total dose 20Gy Tolerating RT to C-spine and LS spine, 2 fractions remaining. Will continue tomorrow. Cont neuro monitoring, PT as tolerated, pain mgt. Advise magic mouthwash before meals.
[2016-08-31] MEDS ORDERED: MAGNESIUM HYDROX 2400MG/30ML ORAL SUSPENSION 30 ML CUP PO ONE (14:00)
--- NOTE | 2016-08-31 14:04 | PN ---
Physical Exam: SUBJECTIVE: Patient seen and examined. She offers no acute complaints. Her LUE strength is improved. She had a small BM this morning. She will try to move to chair OBJECTIVE: Vital Signs Period Temp Pulse Resp BP Sys/Cash Pulse Ox Last 24 Hr 97.4 F-98.4 F 78-100 20-20 128-168/67-85 99-99 PE Neuro: alert, awake, cn 2-12intact, RUE 2/5 motor, cannot move 4th and 5th digit Pulm: basilar crackles +NC Breast: R breast mass 2-3oclock, L breast w/ cutaneous changes, retracted CV: s1 s2 rrr +murmur Abd: s nt nd +bs Ext: RUE weakness motor 2/5 CBCD WBC 7.0 K/mm3 (4.0-10.0) D 08/31/16 07:30 RBC 4.07 M/mm3 (3.60-5.2) 08/31/16 07:30 Hgb 10.8 GM/dL (10.7-15.3) 08/31/16 07:30 Hct 33.2 % (32.4-45.2) 08/31/16 07:30 MCV 81.6 fl (80-96) 08/31/16 07:30 MCHC 32.5 g/dl (32.0-36.0) 08/31/16 07:30 RDW 16.3 % (11.6-15.6) H 08/31/16 07:30 Plt Count 170 K/MM3 (134-434) 08/31/16 07:30 MPV 8.5 fl (7.5-11.1) 08/31/16 07:30 CMP Sodium 141 mmol/L (136-145) 08/31/16 07:30 Potassium 3.8 mmol/L (3.5-5.1) 08/31/16 07:30 Chloride 102 mmol/L (98-107) 08/31/16 07:30 Carbon Dioxide 31 mmol/L (21-32) 08/31/16 07:30 Anion Gap 8 (8-16) 08/31/16 07:30 BUN 20 mg/dL (7-18) H D 08/31/16 07:30 Creatinine 0.4 mg/dL (0.55-1.02) L 08/31/16 07:30 Creat Clearance w eGFR > 60 (>60) 08/31/16 07:30 Calcium 8.5 mg/dL (8.5-10.1) 08/31/16 07:30 Total Bilirubin 0.6 mg/dL (0.2-1.0) 08/31/16 07:30 AST 100 U/L (15-37) H D 08/31/16 07:30 ALT 165 U/L (12-78) H D 08/31/16 07:30 Alkaline Phosphatase 413 U/L (45-117) H D 08/31/16 07:30 Total Protein 5.9 g/dl (6.4-8.2) L 08/31/16 07:30 Albumin 2.7 g/dl (3.4-5.0) L 08/31/16 07:30 Active Medications Generic Name Dose Route Start Last Admin Trade Name Freq PRN Reason Stop Dose Admin Acetaminophen 650 mg 08/12/16 14:57 08/14/16 13:56 Tylenol - PO 650 mg Q4H PRN Administration FEVER OR PAIN Al Hydroxide/Mg Hydroxide 30 ml 08/26/16 09:34 Mylanta Oral Suspension - PO Q6H PRN DYSPEPSIA Albuterol/Ipratropium 1 amp 08/14/16 11:30 08/31/16 12:05 Duoneb - NEB 1 amp Q6H DONNY Administration Bisacodyl 10 mg 08/24/16 10:00 Dulcolax Suppository - RC PRN PRN CONSTIPATION Cholecalciferol 500 unit 08/13/16 10:00 08/31/16 09:15 Vitamin D3 - PO 500 unit DAILY DONNY Administration Dexamethasone 4 mg 08/27/16 22:00 08/31/16 13:26 Decadron - PO 4 mg TID DONNY Administration Docusate Sodium 100 mg 08/23/16 14:00 08/31/16 13:26 Colace - PO 100 mg TID DONNY Administration Insulin Aspart 1 vial 08/12/16 16:30 08/31/16 11:14 Novolog Vial Sliding Scale - SQ Not Given ACHS [facility] Protocol Insulin Detemir 3 units 08/27/16 10:00 08/31/16 09:30 Levemir Vial SQ 3 units BID DONNY Administration Lidocaine/Aluminum/Magnesium/Simeth 5 ml 08/31/16 14:00 Magic Mouthwash *Sjr Formula* - MM TID DONNY Miscellaneous 1 each 08/23/16 08:27 08/29/16 08:48 Duragesic Patch Waste TD 1 each PRN PRN Administration PAIN Morphine Sulfate 4 mg 08/23/16 08:28 08/31/16 09:16 Morphine Injection - IVPUSH 4 mg Q4H PRN Administration PAIN Ondansetron HCl 4 mg 08/12/16 14:57 Zofran Injection IVPB Q4H PRN NAUSEA Pantoprazole Sodium 40 mg 08/26/16 10:00 08/31/16 09:16 Protonix - PO 40 mg BID DONNY Administration Polyethylene Glycol 17 gm 08/14/16 11:30 08/31/16 09:16 Miralax (For Daily Use) - PO Not Given DAILY DONNY Senna 2 tab 08/12/16 22:00 08/30/16 21:26 Senna - PO 2 tab HS DONNY Administration Assessment: 80 year old female with PMHx of metastatic breast cancer, anemia, NIDDM, admitted with increased diffuse pain, weakness, hypercalcemia. Plan: 1. Metastatic breast cancer with diffuse skeletal and multiple vertebrael mets complicated by cord compression on C5-6, L4 - On Decadron 4mg po tid, taper per oncology - Fentanyl patch 50mcg since 08/24 - Morphine prn breakthrough - Completed RT to R humerus 08/30 - Complete RT to C and LS spine 02/14 completed - Discussed with Ortho, TABATHA Ugarte, pt is WBATto LS, no heavy lifting to RUE, can be OOB to chair 2. Anemia 2/2 chronic illness - Continue ferrous sulfate 3. Constipation - Continue Miralax, Colace, Senna, Doculax suppository - Small BM 08/31 - Milk of mag x1 today 4. DM II - Levemir 3 units sq bid (patient with low glucose in AM and hyperglycemia in PM ) - BGM, ISS ACHS 5. Transaminitis - Will decrease protonix to daily, pt on decadron - US limited ordered 6. PPX - Lovenox 40mg sq daily - OOB to chair Dispo: - Requires continued inpatient care CODE STATUS: FULL CODE Visit type - Emergency Visit Emergency Visit: Yes ED Registration Date: 08/12/16 Care time: The patient presented to the Emergency Department on the above date and was hospitalized for further evaluation of their emergent condition. - New Patient This patient is new to me today: No - Critical Care Critical Care patient: No
[2016-08-31] MEDS: MAG HYDROX/ALH/SMC/DPHA/LIDO 240 ML MOUTHWASH MM SCH ×2 (17:31→21:40)
[2016-08-31] MEDS: MAG HYDROX/AL HYDROX/SIMETH 30 ML UNIT-DOSE CUP PO PRN ×2 (17:31→22:49)
--- NOTE | 2016-08-31 17:34 | PN ---
Progress Note (short form) - Note Progress Note: Patient seen and examined Complains of abdominal pains 2 more fractions of RT Has been somewhat reluctant to get OOB Last Vital Signs Temp Pulse Resp BP Pulse Ox 97.6 F 100 H 20 139/67 99 08/31/16 13:56 08/31/16 13:56 08/31/16 08:00 08/31/16 13:56 08/31/16 08:00 HEENT: MALI, EOM Intact Oropharynx: No thrush, Breasts: right breast 12 o'clock mass,left breast -central mass with nipple with pagetoid changes Cor: RSR, No murmurs, No gallops Lungs: decreased breath sounds Abd: Soft, Normal bowel sounds, No organomegaly Ext:No significant edema Skin: No rashes, Integument intact CBC, BMP 08/31/16 07:30 08/31/16 07:30 Current Medications Generic Name Dose Route Start Last Admin Trade Name Freq PRN Reason Stop Dose Admin Acetaminophen 650 mg 08/12/16 14:57 08/14/16 13:56 Tylenol - PO 650 mg Q4H PRN Administration FEVER OR PAIN Al Hydroxide/Mg Hydroxide 30 ml 08/26/16 09:34 Mylanta Oral Suspension - PO Q6H PRN DYSPEPSIA Albuterol/Ipratropium 1 amp 08/14/16 11:30 08/31/16 12:05 Duoneb - NEB 1 amp Q6H DONNY Administration Bisacodyl 10 mg 08/24/16 10:00 Dulcolax Suppository - RC PRN PRN CONSTIPATION Cholecalciferol 500 unit 08/13/16 10:00 08/31/16 09:15 Vitamin D3 - PO 500 unit DAILY DONNY Administration Dexamethasone 4 mg 08/27/16 22:00 08/31/16 13:26 Decadron - PO 4 mg TID DONNY Administration Docusate Sodium 100 mg 08/23/16 14:00 08/31/16 13:26 Colace - PO 100 mg TID DONNY Administration Insulin Aspart 1 vial 08/12/16 16:30 08/31/16 16:50 Novolog Vial Sliding Scale - SQ 8 unit ACHS DONNY Administration Protocol Insulin Detemir 3 units 08/27/16 10:00 08/31/16 09:30 Levemir Vial SQ 3 units BID DONNY Administration Lidocaine/Aluminum/Magnesium/Simeth 5 ml 08/31/16 14:00 Magic Mouthwash *Sjr Formula* - MM TID DONNY Miscellaneous 1 each 08/23/16 08:27 08/29/16 08:48 Duragesic Patch Waste TD 1 each PRN PRN Administration PAIN Morphine Sulfate 4 mg 08/23/16 08:28 08/31/16 09:16 Morphine Injection - IVPUSH 4 mg Q4H PRN Administration PAIN Ondansetron HCl 4 mg 08/12/16 14:57 Zofran Injection IVPB Q4H PRN NAUSEA Pantoprazole Sodium 40 mg 09/01/16 10:00 Protonix - PO DAILY [facility] Polyethylene Glycol 17 gm 08/14/16 11:30 08/31/16 09:16 Miralax (For Daily Use) - PO Not Given DAILY [facility] Senna 2 tab 08/12/16 22:00 08/30/16 21:26 Senna - PO 2 tab HS DONNY Administration Impression: Metastatic breast ca with bone, spine mets. Abdominal pain ?? RT effect Abnormal LFT's?? RT ?? other -for sono of liver Spinal mets--to reduce decadron Need to encourage OOB
[2016-08-31] MEDS: SENNOSIDES 8.6MG TABLET (FP) PO SCH (21:39)
[2016-09-01] MEDS: ALBUTEROL SO4 2.5/IPRATROPIUM 0.5 INH SOL 3 ML VIAL.NEB. NEB SCH ×4 (06:10→23:27)
[2016-09-01] MEDS: DOCUSATE SODIUM 100 MG CAPSULE (FP) PO SCH ×3 (06:14→21:43)
[2016-09-01] MEDS: INSULIN SLIDING SCALE (NOVOLOG) 1 VIAL SQ SCH ×4 (06:14→21:44)
[2016-09-01] MEDS: MAG HYDROX/ALH/SMC/DPHA/LIDO 240 ML MOUTHWASH MM SCH ×3 (06:16→21:43)
[2016-09-01] MEDS: PANTOPRAZOLE 40 MG TABLET (FP) PO SCH (09:20)
[2016-09-01] MEDS: POLYETHYLENE GLYCOL 3350 119 GM BTL PO SCH (09:20)
[2016-09-01] MEDS: CHOLECALCIFEROL (VITAMIN D3) 400 UNIT TABLET (FP) PO SCH (09:20)
[2016-09-01] MEDS: DEXAMETHASONE 4 MG TABLET (FP) PO SCH ×2 (09:20→21:43)
[2016-09-01] MEDS: morphine CARPU-JECT 4 MG/1 ML DISP.SYRIN IVPUSH PRN (09:21)
[2016-09-01] MEDS ORDERED: INSULIN (NOVOLOG) ASPART 100 UNITS/ML 10ML VIAL ONE (11:47)
--- NOTE | 2016-09-01 11:58 | PN ---
Progress Note (short form) - Note Progress Note: Radiation Oncology Neck pain better. No new neurologic symptoms on decadron. s/p faslodex Plts normal but slowly trending down, monitor CBC. Completed RT to humerus, total dose 20Gy Tolerating RT to C-spine and LS spine, 1 fractions remaining, finishes tomorrow. Cont neuro monitoring, PT as tolerated, pain mgt. Taper decadron to 4q12 Magic mouthwash before meals prn for ?RT esophagitis.
[2016-09-01] MEDS ORDERED: PT OWN MED DRAWER 7, Y5N ONE (14:12)
--- NOTE | 2016-09-01 18:27 | PN ---
Physical Exam: SUBJECTIVE: Patient seen and examined. Pt feeling alright, wants to try a chair today, had a BM. States mylanta helped. OBJECTIVE: Vital Signs Period Temp Pulse Resp BP Sys/Cash Pulse Ox Last 24 Hr 97.5 F-98.6 F 74-102 20-20 128-138/70-73 92-99 PE Neuro: alert, awake, cn 2-12intact, RUE 2/5 motor, Pulm: clear anteriorly +NC Breast: R breast mass 2-3oclock, L breast w/ cutaneous changes, retracted CV: s1 s2 rrr +murmur Abd: s nt nd +bs Ext: RUE weakness motor 2/5 Laboratory Results - last 24 hr 08/31/16 08/31/16 09/01/16 20:38 21:24 01:59 POC Glucometer 71 104 215 09/01/16 09/01/16 09/01/16 05:44 11:22 16:55 POC Glucometer 203 355 219 Active Medications Generic Name Dose Route Start Last Admin Trade Name Freq PRN Reason Stop Dose Admin Acetaminophen 650 mg 08/12/16 14:57 08/14/16 13:56 Tylenol - PO 650 mg Q4H PRN Administration FEVER OR PAIN Al Hydroxide/Mg Hydroxide 30 ml 08/26/16 09:34 08/31/16 22:49 Mylanta Oral Suspension - PO 30 ml Q6H PRN Administration DYSPEPSIA Albuterol/Ipratropium 1 amp 08/14/16 11:30 09/01/16 11:40 Duoneb - NEB Not Given Q6H DONNY Bisacodyl 10 mg 08/24/16 10:00 Dulcolax Suppository - RC PRN PRN CONSTIPATION Cholecalciferol 500 unit 08/13/16 10:00 09/01/16 09:20 Vitamin D3 - PO 500 unit DAILY DONNY Administration Dexamethasone 4 mg 08/31/16 22:00 09/01/16 09:20 Decadron - PO 4 mg BID DONNY Administration Docusate Sodium 100 mg 08/23/16 14:00 09/01/16 14:20 Colace - PO Not Given TID DONNY Insulin Aspart 1 vial 08/12/16 16:30 09/01/16 16:57 Novolog Vial Sliding Scale - SQ 4 unit ACHS DONNY Administration Protocol Insulin Detemir 3 units 09/02/16 07:00 Levemir Vial SQ AM DONNY Lidocaine/Aluminum/Magnesium/Simeth 5 ml 08/31/16 14:00 09/01/16 15:19 Magic Mouthwash *Sjr Formula* - MM 5 ml TID DONNY Administration Miscellaneous 1 each 08/23/16 08:27 08/29/16 08:48 Duragesic Patch Waste TD 1 each PRN PRN Administration PAIN Morphine Sulfate 4 mg 08/23/16 08:28 09/01/16 09:21 Morphine Injection - IVPUSH 4 mg Q4H PRN Administration PAIN Ondansetron HCl 4 mg 08/12/16 14:57 Zofran Injection IVPB Q4H PRN NAUSEA Pantoprazole Sodium 40 mg 09/01/16 10:00 09/01/16 09:20 Protonix - PO 40 mg DAILY DONNY Administration Polyethylene Glycol 17 gm 08/14/16 11:30 09/01/16 09:20 Miralax (For Daily Use) - PO Not Given DAILY DONNY Senna 2 tab 08/12/16 22:00 08/31/16 21:39 Senna - PO 2 tab HS DONNY Administration Assessment: 80 year old female with PMHx of metastatic breast cancer, anemia, NIDDM, admitted with increased diffuse pain, weakness, hypercalcemia. Plan: 1. Metastatic breast cancer with diffuse skeletal and multiple vertebrael mets complicated by cord compression on C5-6, L4 - Taper Decadron 4mg po bid - Fentanyl patch 50mcg since 08/24 - Completed RT to R humerus 08/30 - Complete RT to C and LS spine 03/17 completed - OOB to chair, WBAT, no heavy lifting to RUE 2. Anemia 2/2 chronic illness - Continue ferrous sulfate 3. Constipation - Continue Miralax, Colace, Senna, Doculax suppository 4. DM II - Levemir 3 units sq AM - BGM, ISS ACHS 5. Transaminitis - US shows gallstones, no thickening, hepatic stenosis - Protonix daily; pt on decadron - CMP in AM 6. Dysphagia/SRIDHAR - Mylanta prn - Magic mouthwash AC meals 7. PPX - Lovenox 40mg sq daily - OOB to chair Dispo: - Requires continued inpatient care CODE STATUS: FULL CODE Visit type - Emergency Visit Emergency Visit: Yes ED Registration Date: 08/12/16 Care time: The patient presented to the Emergency Department on the above date and was hospitalized for further evaluation of their emergent condition. - New Patient This patient is new to me today: No - Critical Care Critical Care patient: No - Discharge Referral Referred to [facility] No
--- NOTE | 2016-09-01 19:16 | PN ---
Progress Note (short form) - Note Progress Note: Patient seen and examined . throat pain better some diarrhea Last Vital Signs Temp Pulse Resp BP Pulse Ox 97.9 F 89 20 128/73 92 L 09/01/16 17:47 09/01/16 17:47 09/01/16 05:53 09/01/16 17:47 09/01/16 11:40 Thrush Cor: RSR, No murmurs, No gallops Lungs: diminished breasth sounds Abd: Soft, Normal bowel sounds, No organomegaly Ext:No significant edema Labs reviewed Current Medications Acetaminophen (Tylenol -) 650 mg PO Q4H PRN PRN Reason: FEVER OR PAIN Last Admin: 08/14/16 13:56 Dose: 650 mg Al Hydroxide/Mg Hydroxide (Mylanta Oral Suspension -) 30 ml PO Q6H PRN PRN Reason: DYSPEPSIA Last Admin: 08/31/16 22:49 Dose: 30 ml Albuterol/Ipratropium (Duoneb -) 1 amp NEB Q6H [facility] Last Admin: 09/01/16 18:05 Dose: 1 amp Bisacodyl (Dulcolax Suppository -) 10 mg RC PRN PRN PRN Reason: CONSTIPATION Cholecalciferol (Vitamin D3 -) 500 unit PO DAILY [facility] Last Admin: 09/01/16 09:20 Dose: 500 unit Dexamethasone (Decadron -) 4 mg PO BID [facility] Last Admin: 09/01/16 09:20 Dose: 4 mg Docusate Sodium (Colace -) 100 mg PO TID [facility] Last Admin: 09/01/16 14:20 Dose: Not Given Insulin Aspart (Novolog Vial Sliding Scale -) 1 vial SQ ACHS [facility] PRN Reason: Protocol Last Admin: 09/01/16 16:57 Dose: 4 unit Insulin Detemir (Levemir Vial) 3 units SQ AM [facility] Lidocaine/Aluminum/Magnesium/Simeth (Magic Mouthwash *Sjr Formula* -) 5 ml MM TID [facility] Last Admin: 09/01/16 15:19 Dose: 5 ml Miscellaneous (Duragesic Patch Waste) 1 each TD PRN PRN PRN Reason: PAIN Last Admin: 08/29/16 08:48 Dose: 1 each Morphine Sulfate (Morphine Injection -) 4 mg IVPUSH Q4H PRN PRN Reason: PAIN Last Admin: 09/01/16 09:21 Dose: 4 mg Ondansetron HCl (Zofran Injection) 4 mg IVPB Q4H PRN PRN Reason: NAUSEA Pantoprazole Sodium (Protonix -) 40 mg PO DAILY [facility] Last Admin: 09/01/16 09:20 Dose: 40 mg Polyethylene Glycol (Miralax (For Daily Use) -) 17 gm PO DAILY [facility] Last Admin: 09/01/16 09:20 Dose: Not Given Senna (Senna -) 2 tab PO HS [facility] Last Admin: 08/31/16 21:39 Dose: 2 tab Impression: Metastatic breast ca with extensive skeletal mets Spine CT with diffuse lytic mets, destruction of C-6 with retropulsion and L4 met with minimal extension into spine and neural impingement completed Rt to humerus. Getting RT to C and LS spine --completing tomorrow mild abdominal distention-/diarrhea- On 50mcg Q72h of fentanyl/morphine on miralax/senna/colace--hold check stool for c.diff thrush--add nystatin abnormal LFTs--acute rise u/s --neg. reduce dose of tylenol would consider gi consult
[2016-09-01] MEDS ORDERED: ACETAMINOPHEN 325 MG TABLET (FP) PO PRN (20:35)
[2016-09-01] MEDS: SENNOSIDES 8.6MG TABLET (FP) PO SCH (21:44)
[2016-09-02] MEDS: NYSTATIN 500,000 UNITS/5 ML SUSPENSION PO SCH ×5 (00:13→23:52)
[2016-09-02] MEDS: MAG HYDROX/ALH/SMC/DPHA/LIDO 240 ML MOUTHWASH MM SCH ×3 (05:24→21:48)
[2016-09-02] MEDS: DOCUSATE SODIUM 100 MG CAPSULE (FP) PO SCH ×2 (05:24→21:47)
[2016-09-02] MEDS ORDERED: INSULIN (NOVOLOG) ASPART 100 UNITS/ML 10ML VIAL ONE ×2 (05:32→16:22)
[2016-09-02] MEDS: ALBUTEROL SO4 2.5/IPRATROPIUM 0.5 INH SOL 3 ML VIAL.NEB. NEB SCH (05:43)
[2016-09-02] MEDS: INSULIN DETEMIR 100 UNITS/ML MDV SQ SCH (05:59)
[2016-09-02] MEDS: INSULIN SLIDING SCALE (NOVOLOG) 1 VIAL SQ SCH ×4 (06:00→21:47)
[2016-09-02 08:34] LABS: ALBUMIN 2.7 g/dl (3.4-5.0); GLUCOSE,RANDOM 129 mg/dL (74-106); SGOT/AST 49 U/L (15-37); SGPT/ALT 91 U/L (12-78)
[2016-09-02 08:38] LABS: ALK PHOS 375 U/L (45-117); ANION GAP 12 (8-16); BILIRUBIN,TOTAL 0.5 mg/dL (0.2-1.0); CALCIUM 8.4 mg/dL (8.5-10.1); CO2 28 mmol/L (21-32); CREATININE 0.6 mg/dL (0.55-1.02); TOT PROT 6.1 g/dl (6.4-8.2)
[2016-09-02] MEDS: CHOLECALCIFEROL (VITAMIN D3) 400 UNIT TABLET (FP) PO SCH (09:04)
[2016-09-02] MEDS: DEXAMETHASONE 4 MG TABLET (FP) PO SCH ×2 (09:04→21:47)
[2016-09-02] MEDS: POLYETHYLENE GLYCOL 3350 119 GM BTL PO SCH (09:04)
[2016-09-02] MEDS: PANTOPRAZOLE 40 MG TABLET (FP) PO SCH (09:04)
[2016-09-02] MEDS: morphine CARPU-JECT 4 MG/1 ML DISP.SYRIN IVPUSH PRN (09:05)
[2016-09-02] MEDS ORDERED: ACETAMINOPHEN 325 MG TABLET (FP) PO PRN (10:29)
[2016-09-02] MEDS ORDERED: oxyCODONE HCL 5 MG TABLET PO PRN (16:10)
--- NOTE | 2016-09-02 16:16 | PN ---
Physical Exam: SUBJECTIVE: Patient seen and examined. She is oob to chair, she is feeling fine. She denied diarrhea, however the stool is soft. OBJECTIVE: Vital Signs Period Temp Pulse Resp BP Sys/Cash Pulse Ox Last 24 Hr 97 F-98.3 F 74-96 17-20 128-154/72-77 97-97 PE Neuro: alert, awake, cn 2-12intact, RUE 2/5 motor Pulm: CTAB Breast: R breast mass 2-3oclock, L breast w/ cutaneous changes, retracted CV: s1 s2 rrr +murmur Abd: s nt nd +bs Ext: RUE weakness motor 2/5 Laboratory Results - last 24 hr 09/02/16 07:25 Sodium 141 Potassium 3.9 Chloride 101 Carbon Dioxide 28 Anion Gap 12 BUN 22 H Creatinine 0.6 D Creat Clearance w eGFR > 60 POC Glucometer Random Glucose 129 H D Calcium 8.4 L Total Bilirubin 0.5 AST 49 H D ALT 91 H D Alkaline Phosphatase 375 H Total Protein 6.1 L Albumin 2.7 L Active Medications Generic Name Dose Route Start Last Admin Trade Name Freq PRN Reason Stop Dose Admin Acetaminophen 325 mg 09/02/16 10:29 Tylenol - PO Q6H PRN FEVER OR PAIN Al Hydroxide/Mg Hydroxide 30 ml 08/26/16 09:34 08/31/16 22:49 Mylanta Oral Suspension - PO 30 ml Q6H PRN Administration DYSPEPSIA Bisacodyl 10 mg 08/24/16 10:00 Dulcolax Suppository - RC PRN PRN CONSTIPATION Cholecalciferol 500 unit 08/13/16 10:00 09/02/16 09:04 Vitamin D3 - PO 500 unit DAILY DONNY Administration Dexamethasone 4 mg 08/31/16 22:00 09/02/16 09:04 Decadron - PO 4 mg BID DONNY Administration Docusate Sodium 100 mg 09/02/16 22:00 Colace - PO BID DONNY Insulin Aspart 1 vial 08/12/16 16:30 09/02/16 13:28 Novolog Vial Sliding Scale - SQ Not Given ACHS [facility] Protocol Insulin Detemir 3 units 09/02/16 07:00 09/02/16 05:59 Levemir Vial SQ 3 units AM DONNY Administration Lidocaine/Aluminum/Magnesium/Simeth 5 ml 08/31/16 14:00 09/02/16 13:43 Magic Mouthwash *Sjr Formula* - MM 5 ml TID DONNY Administration Miscellaneous 1 each 08/23/16 08:27 08/29/16 08:48 Duragesic Patch Waste TD 1 each PRN PRN Administration PAIN Nystatin 500,000 units 09/02/16 00:00 09/02/16 13:33 Nystatin Oral Suspension - PO 500,000 units Q6HPO DONNY Administration Ondansetron HCl 4 mg 08/12/16 14:57 Zofran Injection IVPB Q4H PRN NAUSEA Oxycodone HCl 5 mg 09/02/16 16:10 Roxicodone - PO Q6H PRN PAIN Pantoprazole Sodium 40 mg 09/01/16 10:00 09/02/16 09:04 Protonix - PO 40 mg DAILY DONNY Administration Polyethylene Glycol 17 gm 08/14/16 11:30 09/02/16 09:04 Miralax (For Daily Use) - PO Not Given DAILY DONNY Senna 1 tab 09/02/16 16:12 Senna - PO HS DONNY Assessment: 80 year old female with PMHx of metastatic breast cancer, anemia, NIDDM, admitted with increased diffuse pain, weakness, hypercalcemia. Plan: 1. Metastatic breast cancer with diffuse skeletal and multiple vertebrael mets complicated by cord compression on C5-6, L4 - Taper Decadron 4mg po bid - Fentanyl patch 50mcg since 08/24 - Completed RT to R humerus 08/30 - Final RT to C and LS spine tomorrow, 04/17 completed - OOB to chair, WBAT, no heavy lifting to RUE 2. Anemia 2/2 chronic illness - Continue ferrous sulfate 3. Constipation - Resolved - Continue bowel regimen 4. DM II - Levemir 3 units sq AM - BGM, ISS ACHS 5. Transaminitis - Improving - US shows gallstones, no thickening, hepatic stenosis - Protonix daily; pt on decadron 6. Dysphagia/SRIDHAR - Mylanta prn - Magic mouthwash AC meals 7. Oral Thrush - Nystatin 8. PPX - Lovenox 40mg sq daily - OOB to chair Dispo: - SNF placement underway CODE STATUS: FULL CODE Visit type - Emergency Visit Emergency Visit: Yes ED Registration Date: 08/12/16 Care time: The patient presented to the Emergency Department on the above date and was hospitalized for further evaluation of their emergent condition. - New Patient This patient is new to me today: No - Critical Care Critical Care patient: No
--- NOTE | 2016-09-02 17:28 | PN ---
Progress Note (short form) - Note Progress Note: Patient seen and examined . throat pain better some diarrhea Last Vital Signs Temp Pulse Resp BP Pulse Ox 98.2 F 93 H 20 154/75 97 09/02/16 14:00 09/02/16 14:00 09/02/16 08:00 09/02/16 14:00 09/02/16 08:00 Thrush Cor: RSR, No murmurs, No gallops Lungs: diminished breasth sounds Abd: Soft, Normal bowel sounds, No organomegaly Ext:No significant edema Labs reviewed Current Medications Acetaminophen (Tylenol -) 325 mg PO Q6H PRN PRN Reason: FEVER OR PAIN Al Hydroxide/Mg Hydroxide (Mylanta Oral Suspension -) 30 ml PO Q6H PRN PRN Reason: DYSPEPSIA Last Admin: 08/31/16 22:49 Dose: 30 ml Bisacodyl (Dulcolax Suppository -) 10 mg RC PRN PRN PRN Reason: CONSTIPATION Cholecalciferol (Vitamin D3 -) 500 unit PO DAILY [facility] Last Admin: 09/02/16 09:04 Dose: 500 unit Dexamethasone (Decadron -) 4 mg PO BID [facility] Last Admin: 09/02/16 09:04 Dose: 4 mg Docusate Sodium (Colace -) 100 mg PO BID [facility] Insulin Aspart (Novolog Vial Sliding Scale -) 1 vial SQ ACHS [facility] PRN Reason: Protocol Last Admin: 09/02/16 16:32 Dose: 8 units Insulin Detemir (Levemir Vial) 3 units SQ AM [facility] Last Admin: 09/02/16 05:59 Dose: 3 units Lidocaine/Aluminum/Magnesium/Simeth (Magic Mouthwash *Sjr Formula* -) 5 ml MM TID [facility] Last Admin: 09/02/16 13:43 Dose: 5 ml Miscellaneous (Duragesic Patch Waste) 1 each TD PRN PRN PRN Reason: PAIN Last Admin: 08/29/16 08:48 Dose: 1 each Nystatin (Nystatin Oral Suspension -) 500,000 units PO Q6HPO [facility] Last Admin: 09/02/16 17:02 Dose: 500,000 units Ondansetron HCl (Zofran Injection) 4 mg IVPB Q4H PRN PRN Reason: NAUSEA Oxycodone HCl (Roxicodone -) 5 mg PO Q6H PRN PRN Reason: PAIN Pantoprazole Sodium (Protonix -) 40 mg PO DAILY [facility] Last Admin: 09/02/16 09:04 Dose: 40 mg Polyethylene Glycol (Miralax (For Daily Use) -) 17 gm PO DAILY [facility] Last Admin: 09/02/16 09:04 Dose: Not Given Senna (Senna -) 1 tab PO HS [facility] Impression: Metastatic breast ca with extensive skeletal mets Spine CT with diffuse lytic mets, destruction of C-6 with retropulsion and L4 met with minimal extension into spine and neural impingement completed Rt to humerus. Getting RT to C and LS spine --completed will consider zometa based on prior infusion mild abdominal distention-/diarrhea- On 50mcg Q72h of fentanyl/morphine on miralax/senna/colace--hold checking stool for c.diff thrush--added nystatin abnormal LFTs--acute rise u/s --neg. reduce dose of tylenol would consider gi consult d/c planning --rehab placement
[2016-09-02] MEDS ORDERED: PT OWN MED DRAWER 7, Y5N ONE (21:12)
[2016-09-02] MEDS ORDERED: SENNOSIDES 8.6MG TABLET (FP) PO SCH (22:00)
[2016-09-03] MEDS ORDERED: INSULIN (NOVOLOG) ASPART 100 UNITS/ML 10ML VIAL ONE ×3 (05:44→16:46)
[2016-09-03] MEDS: MAG HYDROX/ALH/SMC/DPHA/LIDO 240 ML MOUTHWASH MM SCH ×2 (06:05→14:35)
[2016-09-03] MEDS: NYSTATIN 500,000 UNITS/5 ML SUSPENSION PO SCH ×3 (06:05→17:08)
[2016-09-03] MEDS: INSULIN SLIDING SCALE (NOVOLOG) 1 VIAL SQ SCH ×3 (06:06→16:51)
[2016-09-03] MEDS: INSULIN DETEMIR 100 UNITS/ML MDV SQ SCH (06:06)
[2016-09-03] MEDS ORDERED: PT OWN MED DRAWER 7, Y5N ONE ×2 (06:57→16:46)
[2016-09-03 09:01] LABS: ALBUMIN 2.5 g/dl (3.4-5.0); ALK PHOS 328 U/L (45-117); ANION GAP 9 (8-16); BILIRUBIN,TOTAL 0.4 mg/dL (0.2-1.0); CALCIUM 7.7 mg/dL (8.5-10.1); CO2 28 mmol/L (21-32); CREATININE 0.3 mg/dL (0.55-1.02); GLUCOSE,RANDOM 138 mg/dL (74-106); SGOT/AST 44 U/L (15-37); SGPT/ALT 69 U/L (12-78); TOT PROT 5.7 g/dl (6.4-8.2)
[2016-09-03] MEDS ORDERED: FENTANYL PATCH WASTE TD PRN (09:28)
[2016-09-03] MEDS ORDERED: fentaNYL 50mcg/hr PATCH.TD72 TD SCH (09:30)
[2016-09-03] MEDS: CHOLECALCIFEROL (VITAMIN D3) 400 UNIT TABLET (FP) PO SCH (10:03)
[2016-09-03] MEDS: PANTOPRAZOLE 40 MG TABLET (FP) PO SCH (10:04)
[2016-09-03] MEDS: DOCUSATE SODIUM 100 MG CAPSULE (FP) PO SCH (10:05)
[2016-09-03] MEDS: DEXAMETHASONE 4 MG TABLET (FP) PO SCH (10:05)
[2016-09-03] MEDS: POLYETHYLENE GLYCOL 3350 119 GM BTL PO SCH (10:05)
--- NOTE | 2016-09-03 10:23 | PN ---
Progress Note (short form) - Note Progress Note: Radiation Oncology Completed RT to humerus, C-spine and LS spine. Cont neuro monitoring, PT as tolerated, pain mgt. Taper decadron to 4q12. Magic mouthwash before meals. GI sx unlikely RT-related but agree with GI eval if sx persists.
--- NOTE | 2016-09-03 13:10 | DS ---
[id number] Rate 20 09/03/16 08:00 Blood Pressure 125/74 09/03/16 08:00 O2 Sat by Pulse Oximetry (%) 98 09/02/16 21:00 Findings/Remarks: PE Neuro: alert, awake, cn 2-12intact, RUE 2/5 motor Pulm: CTAB Breast: R breast mass 2-3oclock, L breast w/ cutaneous changes, retracted CV: s1 s2 rrr +murmur Abd: s nt nd +bs Ext: RUE weakness motor 2/5 Labs: CBC, BMP 08/31/16 07:30 09/03/16 06:30 Discharge Summary Reason For Visit: WEAKNESS,METS BONE CA,INTRACTABLE PAIN Current Active Problems Intractable pain (Acute) Metastatic bone cancer (Acute) Weakness (Acute) Hospital Course: 80 year old female with PMHx of metastatic breast cancer, anemia, NIDDM, admitted with increased diffuse pain, weakness, hypercalcemia. Plan: 1. Metastatic breast cancer with diffuse skeletal and multiple vertebrael mets complicated by cord compression on C5-6, L4 - Taper Decadron 4mg po bid - Fentanyl patch 50mcg since 08/24 - Completed RT to R humerus 08/30 - Completed 05/17 RT to C and LS spine - OOB to chair, WBAT, no heavy lifting to RUE 2. Anemia 2/2 chronic illness - Continue ferrous sulfate 3. Constipation - Resolved - Continue bowel regimen 4. DM II - Levemir 3 units sq AM - BGM, ISS ACHS 5. Transaminitis - Improving - US shows gallstones, no thickening, hepatic stenosis - Protonix daily; pt on decadron 6. Dysphagia/SRIDHAR - Mylanta prn - Magic mouthwash AC meals 7. Oral Thrush - Nystatin Condition: Stable - Instructions Diet, Activity, Other Instructions: Please return to the ED with new, persistent, or worsening symptoms. Please follow-up with providers as indicated. Referrals: Howard Gomez MD [Primary Care Provider] - 1 Week Richard Sampson MD [Staff Physician] - (Please follow-up with Dr. Sampson ( oncology) within 2-3 days for further management of your steroid taper and pain regimen ) Nato Gonzalez MD [Staff Physician] - 1 Week Disposition: ASSISTED FACILITY - Home Medications Comprehensive Discharge Medication List: Ambulatory Orders Cholecalciferol (Vitamin D3) [Vitamin D -] 500 unit PO DAILY 08/12/16 Acetaminophen [Tylenol .Regular Strength -] 325 mg PO Q6H PRN #0 tablet Albuterol 2.5/Ipratropium 0.5 [Duoneb -] 1 amp NEB Q6H amp 09/03/16 Bisacodyl Suppository [Dulcolax Suppository -] 10 mg RC PRN PRN #0 supp.rect Dexamethasone [Decadron -] 4 mg PO BID tablet 09/03/16 Docusate Sodium [Colace -] 100 mg PO TID capsule 09/03/16 FENTANYL 50mcg PATCH [DURAGESIC 50mcg PATCH -] 1 patch TD Q72H patch.td72 MDD 50mcg 09/03/16 Fentanyl Patch Waste [Duragesic Patch Waste] 1 each TD PRN PRN #0 each 09/03/16 Insulin (Levemir) [Levemir Vial] 3 units SQ AM ml 09/03/16 Insulin Sliding Scale [Novolog Vial Sliding Scale -] See Protocol SQ ACHS units 09/03/16 Mag Hydrox/Al Hydrox/Simeth [Mylanta Oral Suspension -] 30 ml PO Q6H PRN #0 cup 09/03/16 Mag Hydrox/Alh/Smc/Dpha/Lido [Magic Mouthwash *Sjr Formula* -] 5 ml MM TID bottle 09/03/16 Nystatin Oral Suspension - [Nystatin Oral Susp 692726 Units/5 ML -] 500,000 units PO Q6HPO cup 09/03/16 Oxycodone HCl [Roxicodone -] 5 mg PO Q6H PRN #0 tablet MDD 20mg 09/03/16 Pantoprazole Sodium [Protonix -] 40 mg PO DAILY tablet.ec 09/03/16 Polyethylene Glycol 3350 [Miralax 119 gm Btl -] 17 gm PO DAILY bottle 09/03/16 Sennosides [Senna -] 1 tab PO HS tablet 09/03/16 This patient is new to me today: No Emergency Visit: Yes ED Registration Date: 08/12/16 Care time: The patient presented to the Emergency Department on the above date and was hospitalized for further evaluation of their emergent condition. Critical Care patient: No - Discharge Referral Referred to [facility] No
[2016-09-03 17:47] VITALS: BP 131/74; PULSE 92; TEMP 98.4
--- NOTE | 2016-09-03 19:31 | PN ---
Progress Note (short form) - Note Progress Note: Patient seen and examined . throat pain better pain well controlled frequent BMs c.diff neg. Last Vital Signs Temp Pulse Resp BP Pulse Ox 98.4 F 92 H 18 131/74 98 09/03/16 17:46 09/03/16 17:46 09/03/16 17:46 09/03/16 17:46 09/03/16 09:00 Thrush improved Cor: RSR, No murmurs, No gallops Lungs: diminished breasth sounds Abd: Soft, Normal bowel sounds, No organomegaly Ext:No significant edema Labs reviewed Current Medications Acetaminophen (Tylenol -) 325 mg PO Q6H PRN PRN Reason: FEVER OR PAIN Al Hydroxide/Mg Hydroxide (Mylanta Oral Suspension -) 30 ml PO Q6H PRN PRN Reason: DYSPEPSIA Last Admin: 08/31/16 22:49 Dose: 30 ml Bisacodyl (Dulcolax Suppository -) 10 mg RC PRN PRN PRN Reason: CONSTIPATION Cholecalciferol (Vitamin D3 -) 500 unit PO DAILY [facility] Last Admin: 09/03/16 10:03 Dose: 500 unit Dexamethasone (Decadron -) 4 mg PO BID [facility] Last Admin: 09/03/16 10:05 Dose: 4 mg Docusate Sodium (Colace -) 100 mg PO BID [facility] Last Admin: 09/03/16 10:05 Dose: Not Given Fentanyl (Duragesic 50mcg Patch -) 1 patch TD Q72H [facility] Stop: 09/10/16 09:28 Last Admin: 09/03/16 10:05 Dose: 1 patch Insulin Aspart (Novolog Vial Sliding Scale -) 1 vial SQ ACHS [facility] PRN Reason: Protocol Last Admin: 09/03/16 16:51 Dose: 4 units Insulin Detemir (Levemir Vial) 3 units SQ AM [facility] Last Admin: 09/03/16 06:06 Dose: 3 units Lidocaine/Aluminum/Magnesium/Simeth (Magic Mouthwash *Sjr Formula* -) 5 ml MM TID [facility] Last Admin: 09/03/16 14:35 Dose: 5 ml Miscellaneous (Duragesic Patch Waste) 1 each TD PRN PRN PRN Reason: PAIN Last Admin: 08/29/16 08:48 Dose: 1 each Miscellaneous (Duragesic Patch Waste) 1 each TD PRN PRN PRN Reason: PAIN Nystatin (Nystatin Oral Suspension -) 500,000 units PO Q6HPO [facility] Last Admin: 09/03/16 17:08 Dose: Not Given Ondansetron HCl (Zofran Injection) 4 mg IVPB Q4H PRN PRN Reason: NAUSEA Oxycodone HCl (Roxicodone -) 5 mg PO Q6H PRN PRN Reason: PAIN Pantoprazole Sodium (Protonix -) 40 mg PO DAILY [facility] Last Admin: 09/03/16 10:04 Dose: 40 mg Polyethylene Glycol (Miralax (For Daily Use) -) 17 gm PO DAILY [facility] Last Admin: 09/03/16 10:05 Dose: Not Given Senna (Senna -) 1 tab PO HS [facility] Last Admin: 09/02/16 21:48 Dose: Not Given Impression: Metastatic breast ca with extensive skeletal mets Spine CT with diffuse lytic mets, destruction of C-6 with retropulsion and L4 met with minimal extension into spine and neural impingement completed Rt to humerus. Getting RT to C and LS spine --completed will consider zometa based on prior infusion mild abdominal distention-/diarrhea- On 50mcg Q72h of fentanyl/morphine on miralax/senna/colace--hold stool for c.diff --neg gi eval if symptoms persist thrush--added nystatin abnormal LFTs--acute rise u/s --neg. improved d/c planning --rehab placement
== END 2016-09-03 20:10 | DRG 543 ==
LOC: JER 08:25 → JERBED 13:01 → J6S 20:49
PROVIDERS: ADMIT Internal Medicine; ATTEND Registered Nurse
DX: C79.51 Secondary malignant neoplasm of bone (principal); E87.0 Hyperosmolality and hypernatremia; N39.0 Urinary tract infection, site not specified; G95.29 Other cord compression; M84.48XA Pathological fracture, other site, initial encounter for fracture; C50.919 Malignant neoplasm of unspecified site of unspecified female breast; E83.52 Hypercalcemia; E86.0 Dehydration; D63.8 Anemia in other chronic diseases classified elsewhere; E11.65 Type 2 diabetes mellitus with hyperglycemia; K59.00 Constipation, unspecified; R74.0 Nonspecific elevation of levels of transaminase and lactic acid dehydrogenase [LDH]; R13.19 Other dysphagia; B37.9 Candidiasis, unspecified; R14.0 Abdominal distension (gaseous)
CPT/HCPCS: 36415; 71010-TC; 72125-TC; 72128-TC; 72131-TC; 72142-TC; 72147-TC; 72158-TC; 73552-TC-LT; 73552-TC-RT; 74000-TC; 76705-TC; 80048; 80053; 81003; 81015; 82607; 82947; 83735; 84100; 85025; 85027; 87040; 87086; 87324; 87449; 93005; 93010; 94640; 97116-GP; 97163-GP; 99283-25; A9576; J1644; J3480; J3489; J9395